=== PATIENT | male | born 1935 | race African-American/Black ===

== ENCOUNTER 2016-07-22 17:10 | Emergency (ER) | payer OTHER, MEDICARE, BC ==
[2016-07-22] MEDS ORDERED: PREDNISONE 20 MG TABLET PO ONE (18:08)
--- NOTE | 2016-07-22 18:13 | ER Document Report ---
ED Extremity Problem, Lower - General Chief Complaint: L knee pain Stated Complaint: KNEE PAIN Time seen by provider: 18:08 Mode of Arrival: Wheelchair Information source: Patient Notes: 80-year-old male presents to ED for complain of left knee pain. [facility] had [facility] he has a history of gout. He states he does not know of any injury to this knee and these been on prednisone 10 mg for 3 days. He cannot take nonsteroidal anti-inflammatories due to a kidney failure. TRAVEL OUTSIDE OF THE [place] IN LAST 30 DAYS: No - HPI Patient complains to provider of: Pain, Swelling, Other - Spasms to arms and legs he said for about a week or sleeping when he tries to sleep Location: Knee Occurred: Last week Onset/Duration: Intermittent Quality of pain: Sharp, Throbbing Severity: Severe Pain Level: 5 Context: Other - Gout to the knee Recent injury: No Associated symptoms: Painful ambulation Exacerbated by: Movement, Walking Relieved by: Nothing - Related Data Allergies/Adverse Reactions: shellfish derived Allergy (Verified 07/22/16 17:31) Past Medical History - General Information source: Patient - Social History Smoking Status: Former Smoker Cigarette use (# per day): No Chew tobacco use (# tins/day): No Smoking Education Provided: No Frequency of alcohol use: None Drug Abuse: None Occupation: disabled Lives with: Family - daughter Family History: Reviewed & Not Pertinent Patient has suicidal ideation: No Patient has homicidal ideation: No - Past Medical History Cardiac Medical History: Reports: Hx DVT, Hx Hypertension, Hx Pulmonary Embolism Pulmonary Medical History: Reports: None EENT Medical History: Reports: None Neurological Medical History: Reports: None Endocrine Medical History: Reports: None Renal/ Medical History: Reports: Hx Benign Prostatic Hyperplasia, Hx End Stage Renal Disease - myglobinuria, rhabdomyolysis, Other - Has been on hemodialysis in the past but is not on hemodialysis at this time. His kidneys are starting to fail again. Malignancy Medical History: Reports None GI Medical History: Reports: Hx Diverticulitis, Hx Gastritis, Hx Colonoscopy, Hx Endoscopy Musculoskeltal Medical History: Reports Hx Arthritis, Reports Hx Gout, Reports Hx Musculoskeletal Deformity, Reports Hx Musculoskeletal Trauma Skin Medical History: Reports None Psychiatric Medical History: Reports: None Traumatic Medical History: Reports: None Infectious Medical History: Reports: None Past Surgical History: Reports: Hx Bowel Surgery, Hx Cholecystectomy, Hx Colostomy - And revision, Hx Pacemaker, Hx Tonsillectomy, Other - Dialysis shunt and revision - Immunizations Immunizations up to date: Yes Review of Systems - Review of Systems Constitutional: No symptoms reported EENT: No symptoms reported Cardiovascular: No symptoms reported Respiratory: No symptoms reported Gastrointestinal: No symptoms reported Genitourinary: No symptoms reported Male Genitourinary: No symptoms reported Musculoskeletal: Gout - Left knee, Muscle pain - Muscle spasms to arms and legs at night Skin: No symptoms reported Hematologic/Lymphatic: No symptoms reported Neurological/Psychological: No symptoms reported -: Yes All other systems reviewed and negative Physical Exam - Vital signs Vitals: Temp Pulse Resp BP Pulse Ox 99.2 F 69 20 148/69 H 99 07/22/16 17:27 07/22/16 17:27 07/22/16 17:27 07/22/16 17:27 07/22/16 17:27 Interpretation: Normal - General General appearance: Appears well, Alert - HEENT Head: Normocephalic, Atraumatic Eyes: Normal Pupils: PERRL - Respiratory Respiratory status: No respiratory distress Chest status: Nontender Breath sounds: Normal Chest palpation: Normal - Cardiovascular Rhythm: Regular Heart sounds: Normal auscultation Murmur: No - Abdominal Inspection: Normal Distension: No distension Bowel sounds: Normal Tenderness: Nontender Organomegaly: No organomegaly - Back Back: Normal, Nontender - Extremities General upper extremity: Normal inspection, Nontender, Normal color, Normal ROM , Normal temperature General lower extremity: Normal color, Normal temperature. No: Faustino's sign Knee: Tender, Pain with ROM, Unable to bear weight, Other - Swelling to the left knee redness warm due to gout - Neurological Neuro grossly intact: Yes Cognition: Normal Orientation: AAOx4 [place] Coma Scale Eye Opening: Spontaneous Gary Coma Scale Verbal: Oriented [place] Coma Scale Motor: Obeys Commands Gary Coma Scale Total: 15 Speech: Normal Motor strength normal: LUE, RUE, LLE, RLE Sensory: Normal - Psychological Associated symptoms: Normal affect, Normal mood - Skin Skin Temperature: Warm Skin Moisture: Dry Skin Color: Normal Course - Re-evaluation Re-evalutation: 07/22/16 19:32 Labs discussed with patient and daughter. A written report of labs given to patient to follow-up with the [place] [facility]. Patient treated with 60 mg of prednisone and a prescription for 60 mg grams of prednisone for 5 days given to patient. Patient instructed to call [place] doctor tomorrow to schedule follow-up with orthopedic if needed continues. - Vital Signs Vital signs: Temp Pulse Resp BP Pulse Ox 99.0 F 70 18 149/60 H 98 07/22/16 19:45 07/22/16 19:45 07/22/16 19:45 07/22/16 19:45 07/22/16 19:45 - Laboratory Result Diagrams: 07/22/16 18:24 Laboratory results interpreted by me: 07/22/16 18:24 Chloride 95 L BUN 81 H Creatinine 2.95 H Est GFR ( Amer) 25 L Est GFR (Non-Af Amer) 21 L Discharge - Discharge Clinical Impression: Gout attack Qualifiers: Gout site: knee Gout etiology: unspecified cause Laterality: left Qualified Code(s): M10.9 - Gout, unspecified Condition: Stable Disposition: HOME, SELF-CARE Additional Instructions: Gout You have been diagnosed as having gout. Gout is a problem caused by an excess of uric acid, a natural chemical found in the body. The cause of this disease is unknown. Gout arthritis occurs when crystals of uric acid form in the joints. The big toe is the most common joint involved, but any joint can become affected. Persons with gout may also form uric acid kidney stones, resulting in flank pain and blood in the urine. Nodules of uric acid may form under the skin. The first step of treatment is to decrease the inflammation in the joint with antiinflammatory medication. Medication to lower the uric acid level in the blood may then be prescribed. This medication should be taken regularly, as any sudden change in dosage may provoke an attack of gout. Some foods, such as red meat, can provoke an attack in some gout sufferers. Call the doctor if new symptoms arise, or if you do not improve. Gout Diet Changing your diet can decrease the uric acid in your blood. High levels of uric acid cause gouty arthritis and uric acid kidney stones. If you have gout , you should avoid meats that are high in purine. Meat products to avoid include liver, kidneys, and brains. In general, poultry is better than red meats. Seafoods to avoid include anchovies, sardines, wilson, mackerel, and scallops. In addition to limiting purine-rich foods, people with gout should limit protein intake to 10-15% of total calories. Carbohydrate intake should be around 50% of total daily calories. Limit fat intake to 30% of total daily calories. Cholesterol intake should be less than 300 mg/day. Maintain or achieve a healthy body weight. Weight loss should be gradual. Rapid weight loss can actually increase uric acid levels temporarily. Alcohol, especially beer, should be avoided. Get plenty of fluids. This dilutes urinary uric acid, and helps prevent uric acid kidney stones. Drink eight to twelve cups of water daily. STEROID MEDICATION: You have been given a medicine of the cortisone/steroid class. This medication is used to control inflammation or allergy. It is usually only given for a short period of time, until the acute process subsides. There are usually no side effects from short-term use of cortisone-like medications. Some persons feel an increased sense of well-being and are not sleepy at bedtime. Long-term use of cortisone medications is best avoided, unless required for a severe condition. If your condition does not remit, or relapses after the course of corticosteroid medication, you should consult your physician. FOLLOW-UP CARE: If you have been referred to a physician for follow-up care, call the physician s office for an appointment as you were instructed or within the next two days. If you experience worsening or a significant change in your symptoms, notify the physician immediately or return to the Emergency Department at any time for re-evaluation. Prescriptions: Prednisone [Deltasone 20 mg Tablet] 3 tab PO DAILY 5 Days Forms: Elevated Blood Pressure
[2016-07-22 19:07] LABS: ANION GAP 18 (5-19); BLOOD UREA NITROGEN 81 mg/dL (7-20); CALCIUM 10.2 mg/dL (8.4-10.2); CARBON DIOXIDE 28 mmol/L (22-30); CHLORIDE 95 mmol/L (98-107); CREATININE RESULT 2.95 mg/dL (0.52-1.25); GLUCOSE 109 mg/dL (75-110); MAGNESIUM 2.2 mg/dL (1.6-2.3); POTASSIUM 4.2 mmol/L (3.6-5.0); SODIUM 140.9 mmol/L (137-145)
[2016-07-22 20:16] VITALS: BP 149/60
== END 2016-07-22 19:45 | disposition home or self-care (01) ==
LOC: ER 17:10
DX: M10.9 Gout, unspecified (principal); M25.562 Pain in left knee
CPT/HCPCS: 99283; 36415; 83735; 80048; J7512

== ENCOUNTER 2016-08-25 12:22 | Inpatient (IN) | payer OTHER, MEDICARE ==
[2016-08-25] MEDS ORDERED: MORPHINE SULFATE 10 MG/ML INJ IV ONE (13:18)
[2016-08-25] MEDS ORDERED: ONDANSETRON HCL INJ/PF 4 MG/2 ML SDV IV ONE (13:19)
[2016-08-25 15:54] LABS: ABSOLUTE BASOPHILS # (AUTO) 0.1 10^3/uL (0.0-0.2); ABSOLUTE LYMPHOCYTES (AUTO) 0.9 10^3/uL (0.5-4.7); ABSOLUTE MONOCYTES (AUTO) 0.7 10^3/uL (0.1-1.4); ABSOLUTE NEUT (AUTO) 9.8 10^3/uL (1.7-8.2); BASOPHILS % (AUTO) 0.4 % (0-2); EOSINOPHILS % (AUTO) 0.4 % (0-6); HEMATOCRIT 34.9 % (37.9-51.0); HEMOGLOBIN 11.1 g/dL (13.5-17.0); HGB HCT DIFFERENCE -1.6; LYMPHOCYTES % (AUTO) 8.2 % (13-45); MEAN CORPUSCULAR HEMOGLOBIN 26.7 pg (27.0-33.4); MEAN CORPUSCULAR HGB CONC 31.9 g/dL (32.0-36.0); MEAN CORPUSCULAR VOLUME 84 fl (80-97); MONOCYTES % (AUTO) 5.8 % (3-13); RED BLOOD COUNT 4.17 10^6/uL (4.35-5.55); RED CELL DISTRIBUTION WIDTH 20.9 % (11.5-14.0); SEGMENTED NEUTROPHILS % (AUTO) 85.2 % (42-78); WHITE BLOOD COUNT 11.6 10^3/uL (4.0-10.5)
[2016-08-25] MEDS ORDERED: VANCOMYCIN HCL INJ 1000 MG VIAL IV ONE (15:59)
[2016-08-25] MEDS ORDERED: LEVOFLOXACIN 750 MG/D5W RTU 150 ML IV ONE (16:00)
[2016-08-25 16:02] LABS: PROTHROMBIN TIME 14.4 SEC (11.4-15.4)
--- NOTE | 2016-08-25 16:06 | ER Document Report ---
ED Extremity Problem, Lower <GEORGES OSMAN - Last Filed: 08/25/16 16:20> - General Mode of Arrival: Medic Information source: Patient TRAVEL OUTSIDE OF THE [place] IN LAST 30 DAYS: No <AYAZ POLLOCK - Last Filed: 08/25/16 17:58> - General Chief Complaint: Leg Pain Stated Complaint: L LEG PAIN Time Seen by Provider: 08/25/16 13:01 Notes: This is a 80-year-old male with a history of CHF, hypertension who presents with lower extremity swelling which has been worse for the past few days. He states that his left leg is more painful. He takes Lasix once a day and has been told to increase this to twice a day as needed but he has not done so. He denies any fevers but has had some chills. No cough or congestion. (AYAZ POLLOCK) - Related Data Allergies/Adverse Reactions: shellfish derived Allergy (Verified 07/22/16 17:31) Past Medical History - General Information source: Patient, [facility] Records - Social History Smoking Status: Former Smoker Chew tobacco use (# tins/day): No Frequency of alcohol use: None Drug Abuse: None Family History: Reviewed & Not Pertinent - Past Medical History Cardiac Medical History: Reports: Hx Congestive Heart Failure, Hx DVT, Hx Hypertension, Hx Pulmonary Embolism Pulmonary Medical History: Reports: Hx COPD Renal/ Medical History: Reports: Hx Benign Prostatic Hyperplasia, Hx End Stage Renal Disease - myglobinuria, rhabdomyolysis. Denies: Hx Peritoneal Dialysis GI Medical History: Reports: Hx Diverticulitis, Hx Gastritis, Hx Colonoscopy, Hx Endoscopy Musculoskeltal Medical History: Reports Hx Arthritis, Reports Hx Gout, Reports Hx Musculoskeletal Deformity, Reports Hx Musculoskeletal Trauma Past Surgical History: Reports: Hx Bowel Surgery, Hx Cholecystectomy, Hx Colostomy - And revision, Hx Pacemaker, Hx Tonsillectomy, Other - Dialysis shunt and revision - Immunizations Immunizations up to date: Yes Hx Diphtheria, Pertussis, Tetanus Vaccination: No <AYAZ POLLOCK - Last Filed: 08/25/16 17:58> Review of Systems <GEORGES OSMAN - Last Filed: 08/25/16 16:20> <AYAZ POLLOCK - Last Filed: 08/25/16 17:58> - Review of Systems Notes: REVIEW OF SYSTEMS: CONSTITUTIONAL : Denies fever. Denies recent illness. EENT: Denies eye, ear, throat, or mouth pain or symptoms. Denies nasal or sinus congestion. CARDIOVASCULAR: Denies chest pain. RESPIRATORY: Denies cough, cold, or chest congestion. Denies shortness of breath, difficulty breathing, or wheezing. GASTROINTESTINAL: Denies abdominal pain. Denies nausea, vomiting, or diarrhea. GENITOURINARY: Denies difficulty urinating, painful urination, burning, frequency, or blood in urine. MUSCULOSKELETAL: As per history of present illness SKIN: Redness to left lower extremity HEMATOLOGIC : Denies easy bruising or bleeding. LYMPHATIC: Denies swollen, enlarged glands. NEUROLOGICAL: Denies altered mental status or loss of consciousness. Denies headache. PSYCHIATRIC: Denies anxiety or stress or depression. ALL OTHER SYSTEMS REVIEWED AND NEGATIVE. (AYAZ POLLOCK) Physical Exam <GEORGES OSMAN - Last Filed: 08/25/16 16:20> <AYAZ POLLOCK - Last Filed: 08/25/16 17:58> - Vital signs Vitals: Resp 16 08/25/16 12:30 - Notes Notes: PHYSICAL EXAMINATION: GENERAL: Well-appearing, well-nourished and in no acute distress. Pleasant and conversant HEAD: Atraumatic, normocephalic. EYES: Pupils equal round and reactive to light, extraocular movements intact, sclera anicteric, conjunctiva are normal. ENT: nares patent, oropharynx clear without exudates. Moist mucous membranes. NECK: Normal range of motion, supple without lymphadenopathy LUNGS: decreased bibasilar breath sounds, no wheezes, no rhonchi, no rales HEART: Regular rate and rhythm without murmurs ABDOMEN: Soft, obese, nontender, normoactive bowel sounds. No guarding, no rebound. No masses appreciated. EXTREMITIES: 2+ pitting edema BLE, symmetric. LLE with erythema, warmth, and several small anterior areas of skin breakdown with weeping to anterior esparza. Compartments soft, not tense. Distal sensation intact. ROM intact. NEUROLOGICAL: Cranial nerves grossly intact. No gross focal motor or sensory deficits appreciated PSYCH: Normal mood, normal affect. (AYAZ POLLOCK) Course - Laboratory Result Diagrams: 08/25/16 15:33 08/25/16 15:33 <GEORGES OSMAN - Last Filed: 08/25/16 16:20> - Laboratory Result Diagrams: 08/25/16 15:33 08/25/16 15:33 <AYAZ POLLOCK - Last Filed: 08/25/16 17:58> - Re-evaluation Re-evalutation: 08/25/16 16:08 Concern for LLE cellulitis, and possible pneumonia on CXR, IV abx initiated 08/25/16 17:57 Labs reviewed. Pt re-examined. LLE very warm to touch. Compartments remain soft. Discussed with hospitalist Dr Euceda for admission. Discussed plan with patient, questions answered. (AYAZ POLLOCK) - Vital Signs Vital signs: Temp Pulse Resp BP Pulse Ox 98.0 F 21 H 153/73 H 98 08/25/16 17:40 08/25/16 17:49 08/25/16 17:49 08/25/16 17:49 - Laboratory Laboratory results interpreted by me: 08/25/16 08/25/16 08/25/16 15:33 15:33 17:10 WBC 11.6 H RBC 4.17 L Hgb 11.1 L Hct 34.9 L MCH 26.7 L MCHC 31.9 L RDW 20.9 H Plt Count 144 L Seg Neutrophils % 85.2 H Lymphocytes % 8.2 L Absolute Neutrophils 9.8 H BUN 53 H Creatinine 2.68 H Est GFR ( Amer) 28 L Est GFR (Non-Af Amer) 23 L Glucose 142 H Total Bilirubin 2.2 H Direct Bilirubin 0.5 H Total Protein 6.1 L Albumin 3.4 L Urine Protein 30 H Procedures - Additional Procedures IV insertion Time performed: 15:00 Additional Procedures: IV insertion <GEORGES OSMAN - Last Filed: 08/25/16 16:20> <AYAZ POLLOCK - Last Filed: 08/25/16 17:58> - Additional Procedures IV insertion Notes: 20 guage IV inserted into right brachial vein under ultrasound guidance due to difficulty obtaining access by RN. (GEORGES OSMAN) Discharge <GEORGES OSMAN - Last Filed: 08/25/16 16:20> - Discharge Admitting Provider: Hospitalist - Dr. Euceda Unit Admitted: Telemetry <AYAZ POLLOCK - Last Filed: 08/25/16 17:58> - Discharge Clinical Impression: Left leg cellulitis Chronic kidney disease (CKD) Qualifiers: Chronic kidney disease stage: unspecified stage Qualified Code(s): N18.9 - Chronic kidney disease, unspecified
[2016-08-25 16:11] LABS: ALANINE AMINOTRANSFERASE 47 U/L (21-72); ALBUMIN 3.4 g/dL (3.5-5.0); ALKALINE PHOSPHATASE 53 U/L (38-126); ANION GAP 10 (5-19); ASPARTATE AMINO TRANSFERASE 22 U/L (17-59); BILIRUBIN,DIRECT 0.5 mg/dL (0.0-0.4); BILIRUBIN,TOTAL 2.2 mg/dL (0.2-1.3); BLOOD UREA NITROGEN 53 mg/dL (7-20); CALCIUM 8.6 mg/dL (8.4-10.2); CARBON DIOXIDE 30 mmol/L (22-30); CHLORIDE 98 mmol/L (98-107); CREATININE RESULT 2.68 mg/dL (0.52-1.25); GLUCOSE 142 mg/dL (75-110); POTASSIUM 4.2 mmol/L (3.6-5.0); SODIUM 138.4 mmol/L (137-145); TOTAL PROTEIN 6.1 g/dL (6.3-8.2)
[2016-08-25 17:47] LABS: APPEARANCE,URINE CLEAR; BILIRUBIN,URINE NEGATIVE (NEGATIVE); GLUCOSE, URINE NEGATIVE (NEGATIVE); KETONES,URINE NEGATIVE (NEGATIVE); LEUKOCYTE ESTERASE,URINE NEGATIVE (NEGATIVE); NITRITE,URINE NEGATIVE (NEGATIVE); PROTEIN,URINE 30 mg/dL (NEGATIVE); URINE SPECIFIC GRAVITY 1.011; UROBILINOGEN,URINE NEGATIVE mg/dL (<2.0)
[2016-08-25] MEDS ORDERED: HYDRALAZINE HCL INJ/PF 20 MG/1 ML SDV IV PRN (18:12)
[2016-08-25] MEDS ORDERED: ONDANSETRON HCL INJ/PF 4 MG/2 ML SDV IV PRN (18:14)
[2016-08-25] MEDS ORDERED: ACETAMINOPHEN 325 MG TABLET PO PRN (18:14)
--- NOTE | 2016-08-25 18:28 | PDOC H&P ---
History of Present Illness Admission Date/PCP: Dr. Samuel Patient complains of: Left leg pain History of Present Illness: PING MURPHY is a 80 year old male with past medical history chronic kidney disease, hypertension, BPH, pacemaker presents to the hospital with 3 days worsening left lower extremity pain and swelling. Patient has somewhat chronic edema in both lower extremities. Past Medical History Cardiac Medical History: Reports: Congestive Heart Failure, DVT, Hypertension, Pulmonary Embolism Pulmonary Medical History: Reports: Chronic Obstructive Pulmonary Disease (COPD) Renal/ Medical History: Reports: Chronic Kidney Disease GI Medical History: Reports: Diverticulitis Musculoskeltal Medical History: Reports: Arthritis, Gout Past Surgical History Past Surgical History: Reports: Cholecystectomy, Colostomy - And revision, Pacemaker, Tonsillectomy, Other - Dialysis shunt and revision Social History Information Source: Patient Smoking Status: Former Smoker Frequency of Alcohol Use: None Hx Recreational Drug Use: No Hx Prescription Drug Abuse: No - Advance Directive Resuscitation Status: Full Code Family History Family History: Reviewed & Not Pertinent Parental Family History Reviewed: Yes Children Family History Reviewed: Yes Sibling(s) Family History Reviewed.: Yes Medication/Allergy Home Medications: Prednisone [Deltasone 20 mg Tablet] 3 tab PO DAILY 5 Days 07/22/16 Allergies/Adverse Reactions: shellfish derived Allergy (Verified 07/22/16 17:31) Review of Systems Constitutional: ABSENT: chills, fever(s), headache(s), weight gain, weight loss Eyes: ABSENT: visual disturbances Ears: ABSENT: hearing changes Cardiovascular: PRESENT: edema. ABSENT: chest pain, dyspnea on exertion, orthropnea, palpitations Respiratory: ABSENT: cough, hemoptysis Gastrointestinal: ABSENT: abdominal pain, constipation, diarrhea, hematemesis, hematochezia, nausea, vomiting Genitourinary: ABSENT: dysuria, hematuria Musculoskeletal: ABSENT: joint swelling Integumentary: PRESENT: erythema - Left lower extremity. ABSENT: rash, wounds Neurological: ABSENT: abnormal gait, abnormal speech, confusion, dizziness, focal weakness, syncope Psychiatric: ABSENT: anxiety, depression, homidical ideation, suicidal ideation Endocrine: ABSENT: cold intolerance, heat intolerance, polydipsia, polyuria Hematologic/Lymphatic: ABSENT: easy bleeding, easy bruising Physical Exam Vital Signs: Temp Pulse Resp BP Pulse Ox 98.0 F 21 H 153/73 H 98 08/25/16 17:40 08/25/16 17:49 08/25/16 17:49 08/25/16 17:49 PHYSICAL EXAM: GENERAL: Appears well, no acute distress HEENT: Normocephalic, no scleral icterus, conjunctiva clear, EOEM intact, PERRLA , moist mucous membranes NECK: trachea midline, no thyromegally RESPIRATORY: Clear to auscultation, no wheezes/rhonchi CARDIAC: Regular rate and rhythm, no murmur/alessandro/rub ABDOMEN: Soft, no distension, no tenderness, no guarding, normal bowel sounds, negative Romero sign RECTAL: deferred : deferred EXTREMITIES: 3+ Pitting edema and bilateral lower extremities MUSCULOSKELETAL: No joint swelling or deformity VASCULAR: normal peripheral pulses NEUROLOGIC: Alert, oriented to person/place/time, normal speech, cranial nerves grossly intact, 5/5 strength in all extremities, tactile sensation intact in all extremities. No pain with active/passive range of motion in left lower extremity SKIN: Erythema/induration left lower extremity distal to the knee PSYCHIATRIC: Normal mood, normal affect Results Laboratory Results: 08/25/16 15:33 08/25/16 15:33 08/25/16 08/25/16 08/25/16 15:33 15:33 15:33 WBC 11.6 H RBC 4.17 L Hgb 11.1 L Hct 34.9 L MCV 84 MCH 26.7 L MCHC 31.9 L RDW 20.9 H Plt Count 144 L Seg Neutrophils % 85.2 H Lymphocytes % 8.2 L Monocytes % 5.8 Eosinophils % 0.4 Basophils % 0.4 Absolute Neutrophils 9.8 H Absolute Lymphocytes 0.9 Absolute Monocytes 0.7 Absolute Eosinophils 0.0 Absolute Basophils 0.1 Sodium 138.4 Potassium 4.2 Chloride 98 Carbon Dioxide 30 Anion Gap 10 BUN 53 H Creatinine 2.68 H Est GFR ( Amer) 28 L Est GFR (Non-Af Amer) 23 L Glucose 142 H Lactic Acid 2.0 Calcium 8.6 Total Bilirubin 2.2 H AST 22 ALT 47 Alkaline Phosphatase 53 Total Protein 6.1 L Albumin 3.4 L Urine Color Urine Appearance Urine pH Ur Specific [place] Urine Protein Urine Glucose (UA) Urine Ketones Urine Blood Urine Nitrite Ur Leukocyte Esterase Urine WBC (Auto) Urine RBC (Auto) 08/25/16 17:10 WBC RBC Hgb Hct MCV MCH MCHC RDW Plt Count Seg Neutrophils % Lymphocytes % Monocytes % Eosinophils % Basophils % Absolute Neutrophils Absolute Lymphocytes Absolute Monocytes Absolute Eosinophils Absolute Basophils Sodium Potassium Chloride Carbon Dioxide Anion Gap BUN Creatinine Est GFR ( Amer) Est GFR (Non-Af Amer) Glucose Lactic Acid Calcium Total Bilirubin AST ALT Alkaline Phosphatase Total Protein Albumin Urine Color YELLOW Urine Appearance CLEAR Urine pH 7.0 Ur Specific [place] 1.011 Urine Protein 30 H Urine Glucose (UA) NEGATIVE Urine Ketones NEGATIVE Urine Blood NEGATIVE Urine Nitrite NEGATIVE Ur Leukocyte Esterase NEGATIVE Urine WBC (Auto) 2 Urine RBC (Auto) 1 Impressions: Chest X-Ray 08/25/16 13:18 IMPRESSION: Left retrocardiac airspace disease either atelectasis or pneumonia. Assessment & Plan - Diagnosis (1) Left leg cellulitis Is this a current diagnosis for this admission?: YesPlan: Patient will be admitted to the hospital. Start IV clindamycin. Check blood culture. (2) Pneumonia Is this a current diagnosis for this admission?: YesPlan: Retrocardiac airspace disease noted on chest x-ray. Likely bacterial. Start oral doxycycline. (3) Edema Is this a current diagnosis for this admission?: YesPlan: Start Lasix 40 mg IV every 12 hours. Likely related to chronic kidney disease however I would like to check echocardiogram to rule out CHF. (4) Chronic kidney disease (CKD) Qualifiers: Chronic kidney disease stage: unspecified stage Qualified Code(s): N18.9 - Chronic kidney disease, unspecified Is this a current diagnosis for this admission?: YesPlan: Monitor kidney function closely with aggressive diuresis. (5) Hypertension Is this a current diagnosis for this admission?: YesPlan: When necessary IV hydralazine. Start Toprol-XL 25 mg twice daily. (6) History of pacemaker Is this a current diagnosis for this admission?: Yes - Time Time Spent: Greater than 70 Minutes Anticipated discharge: Home - Inpatient Certification Medical Necessity: Need for IV Antibiotics
[2016-08-25] MEDS ORDERED: FUROSEMIDE INJ/PF 20 MG/2 ML SDV IV ONE (18:30)
[2016-08-25] MEDS ORDERED: CLINDAMYCIN 600 MG/D5W RTU 600 MG/50 ML RTUPB IV ONE (18:30)
--- NOTE | 2016-08-25 22:43 | EKG REPORT ---
SEVERITY:- ABNORMAL ECG - AFIB/FLUTTER AND VENTRICULAR-PACED RHYTHM : Confirmed by: Zara Kaplan 25-Aug-2016 22:43:08
[2016-08-25] MEDS: METOPROLOL SUCCINATE 25 MG TAB.SR.24H PO SCH (22:58)
[2016-08-25] MEDS: DOXYCYCLINE HYCLATE 100 MG TABLET PO SCH (22:58)
[2016-08-25] MEDS: HEPARIN SOD (PORCINE) 5,000 UNIT/ML 1 ML SYRINGE SUBCUT SCH (23:36)
[2016-08-26] MEDS: CLINDAMYCIN 600 MG/D5W RTU 600 MG/50 ML RTUPB IV SCH ×3 (06:17→22:20)
[2016-08-26] MEDS: HEPARIN SOD (PORCINE) 5,000 UNIT/ML 1 ML SYRINGE SUBCUT SCH ×3 (06:17→22:20)
[2016-08-26] MEDS: OXYCODONE HCL IR 5 MG TABLET PO PRN ×2 (06:21→12:40)
[2016-08-26 06:22] LABS: ABSOLUTE BASOPHILS # (AUTO) 0.1 10^3/uL (0.0-0.2); ABSOLUTE EOSINOPHILS # (AUTO) 0.1 10^3/uL (0.0-0.6); ABSOLUTE NEUT (AUTO) 10.2 10^3/uL (1.7-8.2); BASOPHILS % (AUTO) 0.6 % (0-2); EOSINOPHILS % (AUTO) 0.5 % (0-6); HEMATOCRIT 32.3 % (37.9-51.0); HEMOGLOBIN 10.1 g/dL (13.5-17.0); LYMPHOCYTES % (AUTO) 7.8 % (13-45); MEAN CORPUSCULAR HEMOGLOBIN 26.6 pg (27.0-33.4); MEAN CORPUSCULAR HGB CONC 31.3 g/dL (32.0-36.0); MEAN CORPUSCULAR VOLUME 85 fl (80-97); RED CELL DISTRIBUTION WIDTH 21.1 % (11.5-14.0); SEGMENTED NEUTROPHILS % (AUTO) 83.1 % (42-78); WHITE BLOOD COUNT 12.3 10^3/uL (4.0-10.5)
[2016-08-26 06:48] LABS: ANION GAP 10 (5-19); BLOOD UREA NITROGEN 53 mg/dL (7-20); CARBON DIOXIDE 28 mmol/L (22-30); CHLORIDE 99 mmol/L (98-107); CREATININE RESULT 2.78 mg/dL (0.52-1.25); GLUCOSE 115 mg/dL (75-110); MAGNESIUM 1.8 mg/dL (1.6-2.3); POTASSIUM 4.7 mmol/L (3.6-5.0); SODIUM 136.5 mmol/L (137-145)
[2016-08-26 07:05] LABS: FREE T3 3.17 pg/mL (2.77-5.27)
[2016-08-26 07:19] LABS: THYROID STIMULATING HORMONE 1.34 uIU/mL (0.47-4.68)
[2016-08-26] MEDS ORDERED: FUROSEMIDE INJ/PF 20 MG/2 ML SDV IV SCH (10:00)
[2016-08-26] MEDS: METOPROLOL SUCCINATE 25 MG TAB.SR.24H PO SCH ×2 (12:16→22:20)
[2016-08-26] MEDS: DOXYCYCLINE HYCLATE 100 MG TABLET PO SCH ×2 (12:17→22:20)
--- NOTE | 2016-08-26 14:33 | PDOC PROGRESS REPORT ---
Subjective Progress Note for:: 08/26/16 Subjective:: Patient has no particular complaints. He feels as though his left leg may be slightly better yesterday. He has no further chills. Physical Exam Vital Signs: Temp Pulse Resp BP Pulse Ox 99.1 F 70 16 116/64 98 08/26/16 11:29 08/26/16 11:29 08/26/16 11:29 08/26/16 11:29 08/26/16 11:29 Intake & Output 08/25/16 08/26/16 08/27/16 06:59 06:59 06:59 Intake Total 305 Output Total 400 Balance -95 Weight 86.1 kg GENERAL: No acute distress HEENT: Conjunctiva clear, nonicteric, moist mucous membranes, no JVD, midline trachea RESPIRATORY: Clear to auscultation bilaterally, no wheezes, no rhonchi CARDIAC: Regular rate and rhythm, no murmurs/gallops/rubs ABDOMEN: Soft, nondistended, nontender, positive bowel sounds, no rebound, no guarding EXTREMETIES: No edema, cyanosis, clubbing NEUROLOGIC: Alert, oriented to person/place/time, CN's grossly intact, no focal deficits SKIN: Erythema/induration left lower extremity improved PSYCH: Normal mood, normal affect Results Laboratory Results: 08/26/16 06:01 08/26/16 06:01 08/26/16 08/26/16 08/26/16 06:01 06:01 06:01 WBC 12.3 H RBC 3.80 L Hgb 10.1 L Hct 32.3 L MCV 85 MCH 26.6 L MCHC 31.3 L RDW 21.1 H Plt Count 120 L Seg Neutrophils % 83.1 H Lymphocytes % 7.8 L Monocytes % 8.0 Eosinophils % 0.5 Basophils % 0.6 Absolute Neutrophils 10.2 H Absolute Lymphocytes 1.0 Absolute Monocytes 1.0 Absolute Eosinophils 0.1 Absolute Basophils 0.1 Sodium 136.5 L Potassium 4.7 Chloride 99 Carbon Dioxide 28 Anion Gap 10 BUN 53 H Creatinine 2.78 H Est GFR ( Amer) 27 L Est GFR (Non-Af Amer) 22 L Glucose 115 H Calcium 8.0 L Magnesium 1.8 TSH 1.34 Free T4 1.86 Free T3 pg/mL 3.17 Impressions: Chest X-Ray 08/25/16 13:18 IMPRESSION: Left retrocardiac airspace disease either atelectasis or pneumonia. Tibia/Fibula X-Ray 08/25/16 17:34 IMPRESSION: NO SIGNIFICANT RADIOGRAPHIC ABNORMALITY. Assessment & Plan - Diagnosis (1) Left leg cellulitis Is this a current diagnosis for this admission?: YesPlan: Patient will be admitted to the hospital. Continue IV clindamycin. Check blood culture. Unable to obtain MRI of the lower extremity secondary to pacemaker. Unable to obtain CT scan with contrast secondary to chronic kidney disease and shellfish allergy. (2) Pneumonia Is this a current diagnosis for this admission?: YesPlan: Retrocardiac airspace disease noted on chest x-ray. Likely bacterial. Continue oral doxycycline until 08/31/2016. (3) Edema Is this a current diagnosis for this admission?: YesPlan: Continue Lasix 40 mg IV every 12 hours. Likely related to chronic kidney disease however I would like to check echocardiogram to rule out CHF. (4) Chronic kidney disease (CKD) Qualifiers: Chronic kidney disease stage: unspecified stage Qualified Code(s): N18.9 - Chronic kidney disease, unspecified Is this a current diagnosis for this admission?: YesPlan: Monitor kidney function closely with aggressive diuresis. Patient will need to see nephrology as an outpatient. I will consult nephrology inpatient kidney function worsens. Check renal ultrasound. (5) Hypertension Is this a current diagnosis for this admission?: Yes (6) History of pacemaker Is this a current diagnosis for this admission?: Yes (7) Obstructive sleep apnea Is this a current diagnosis for this admission?: YesPlan: CPAP (8) Urinary tract infection Is this a current diagnosis for this admission?: YesPlan: Doxycycline pending further sensitivity. - Time Time Spent with patient: 35 or more minutes
--- NOTE | 2016-08-26 15:34 | XCELERA REPORT ---
[address] [address] Transthoracic Echocardiogram Report Name: PING MURPHY Age: 80 yrs Gender: Male : 1935 Patient Status: Inpatient Patient Location: 5\S\528\S\A Study Date: 08/26/2016 09:16 AM Weight: 270 lb Procedure: A two-dimensional transthoracic echocardiogram with color flow and Doppler was performed. The study was technically limited with all images being suboptimal in quality. Reason For Study: EDEMA History: EDEMA. Ordering Physician: LINA MEDINA Performed By: Jade Everett Interpretation Summary The left ventricle is normal in size. There is normal left ventricular wall thickness. LV EF is > than 60% Apical wall motion abnormality may reflect pacemaker activation The right ventricle is grossly normal size. There is a pacemaker lead in the right ventricle. The left atrium is mildly dilated. There is no evidence of mitral valve prolapse. There is no mitral valve stenosis. There is a mild to moderate amount of mitral regurgitation The aortic valve is mildly calcified There is no aortic valve stenosis There is no LVOT obstruction. No aortic regurgitation is present. The inferior vena cava appeared dilated and decreased < 50% with respiration (RAP 15-20 mmHg) There is no tricuspid stenosis. There is a trace to mild amount of tricuspid regurgitation There is moderate pulmonary hypertension by echo RVSP is 50 to 55 mm of Hg , with RA mean of 15 to20. There is no pericardial effusion. MMode/2D Measurements \T\ Calculations RVDd: 3.2 cm LVIDd: 4.2 cm FS: 36.1 % Ao root diam: 3.1 cm IVSd: 1.1 cm LVIDs: 2.7 cm EDV(Teich): 79.4 ml Ao root area: 7.5 cm2 LVPWd: 1.1 cm ESV(Teich): 26.9 ml LA dimension: 4.2 cm EF(Teich): 66.1 % Doppler Measurements \T\ Calculations MV E max georgiana: MV P1/2t max georgiana: Ao V2 max: LV V1 max P.8 cm/sec 131.3 cm/sec 140.5 cm/sec 3.8 mmHg MV P1/2t: 42.9 msec Ao max PG: LV V1 max: MVA(P1/2t): 5.1 cm2 7.9 mmHg 97.7 cm/sec MV dec slope: 895.8 cm/sec2 MV dec time: 0.15 sec PA V2 max: PI end-d georgiana: TR max georgiana: 70.6 cm/sec 88.2 cm/sec 294.5 cm/sec PA max P.0 mmHg TR max P.7 mmHg Left Ventricle The left ventricle is normal in size. There is normal left ventricular wall thickness. LV EF is > than 60%. Left ventricular systolic function is normal. The left ventricular wall motion is normal. Apical wall motion abnormality may reflect pacemaker activation. Right Ventricle The right ventricle is grossly normal size. There is a pacemaker lead in the right ventricle. Atria Right atrium not well visualized secondary to technical limitations. The left atrium is mildly dilated. Mitral Valve There is mild mitral annular calcification. There is no evidence of mitral valve prolapse. There is no vegetation seen on the mitral valve. There is no mitral valve stenosis. There is a mild to moderate amount of mitral regurgitation. Aortic Valve The aortic valve is mildly calcified. There is no aortic valvular vegetation. There is no aortic valve stenosis. There is no LVOT obstruction. No aortic regurgitation is present. Tricuspid Valve There is no tricuspid stenosis. There is a trace to mild amount of tricuspid regurgitation. There is moderate pulmonary hypertension by echo. RVSP is 50 to 55 mm of Hg , with RA mean of 15 to20. Pulmonic Valve There is no pulmonic valvular stenosis. There is a trace amount of pulmonic regurgitation. Great Vessels The aortic root is not well visualized but is probably normal size. The inferior vena cava appeared dilated and decreased < 50% with respiration (RAP 15-20 mmHg). Effusions There is no pericardial effusion. : LINA MEDINA > Sherine Raya
[2016-08-26] MEDS: FUROSEMIDE INJ/PF 40 MG/4 ML SDV IV SCH (17:50)
[2016-08-26] MEDS ORDERED: MAG HYDROX/AL HYDROX/SIMETH SUSP 30 ML UDCUP PO PRN (18:02)
[2016-08-26] MEDS ORDERED: LANSOPRAZOLE 30 MG TAB.RAP.DR PO ONE (19:15)
[2016-08-27] MEDS: CLINDAMYCIN 600 MG/D5W RTU 600 MG/50 ML RTUPB IV SCH ×3 (05:24→21:54)
[2016-08-27] MEDS: FUROSEMIDE INJ/PF 40 MG/4 ML SDV IV SCH ×2 (05:24→18:08)
[2016-08-27] MEDS: HEPARIN SOD (PORCINE) 5,000 UNIT/ML 1 ML SYRINGE SUBCUT SCH ×3 (05:25→21:54)
[2016-08-27 06:52] LABS: ABSOLUTE EOSINOPHILS # (AUTO) 0.1 10^3/uL (0.0-0.6); ABSOLUTE LYMPHOCYTES (AUTO) 1.1 10^3/uL (0.5-4.7); ABSOLUTE MONOCYTES (AUTO) 0.9 10^3/uL (0.1-1.4); ABSOLUTE NEUT (AUTO) 8.4 10^3/uL (1.7-8.2); BASOPHILS % (AUTO) 0.4 % (0-2); EOSINOPHILS % (AUTO) 0.7 % (0-6); HEMATOCRIT 31.7 % (37.9-51.0); HEMOGLOBIN 10.1 g/dL (13.5-17.0); HGB HCT DIFFERENCE -1.4; LYMPHOCYTES % (AUTO) 10.1 % (13-45); MEAN CORPUSCULAR HEMOGLOBIN 26.8 pg (27.0-33.4); MEAN CORPUSCULAR HGB CONC 31.9 g/dL (32.0-36.0); MEAN CORPUSCULAR VOLUME 84 fl (80-97); MONOCYTES % (AUTO) 8.4 % (3-13); RED BLOOD COUNT 3.78 10^6/uL (4.35-5.55); RED CELL DISTRIBUTION WIDTH 20.4 % (11.5-14.0); SEGMENTED NEUTROPHILS % (AUTO) 80.4 % (42-78); WHITE BLOOD COUNT 10.5 10^3/uL (4.0-10.5)
[2016-08-27 07:13] LABS: ANION GAP 9 (5-19); BLOOD UREA NITROGEN 58 mg/dL (7-20); CALCIUM 7.6 mg/dL (8.4-10.2); CARBON DIOXIDE 26 mmol/L (22-30); CHLORIDE 98 mmol/L (98-107); CREATININE RESULT 3.23 mg/dL (0.52-1.25); GLUCOSE 104 mg/dL (75-110); POTASSIUM 4.6 mmol/L (3.6-5.0); SODIUM 133.2 mmol/L (137-145)
[2016-08-27] MEDS: LANSOPRAZOLE 30 MG TAB.RAP.DR PO SCH (09:15)
[2016-08-27] MEDS: METOPROLOL SUCCINATE 25 MG TAB.SR.24H PO SCH (09:15)
[2016-08-27] MEDS: DOXYCYCLINE HYCLATE 100 MG TABLET PO SCH ×2 (09:16→21:54)
[2016-08-27] MEDS: OXYCODONE HCL IR 5 MG TABLET PO PRN (11:19)
--- NOTE | 2016-08-27 15:29 | PDOC PROGRESS REPORT ---
Subjective Progress Note for:: 08/27/16 Subjective:: Left leg pain and swelling is improving. Kidney function is worsening. Patient states that he is normally followed by the [facility] in [facility] for this. Patient denies fever, chills, headache, new focal weakness, chest pain, shortness of breath, abdominal pain, nausea, vomiting, diarrhea, constipation. Physical Exam Vital Signs: Temp Pulse Resp BP Pulse Ox 98.3 F 69 15 117/56 L 97 08/27/16 07:15 08/27/16 07:15 08/27/16 07:15 08/27/16 07:15 08/27/16 07:15 Intake & Output 08/26/16 08/27/16 08/28/16 06:59 06:59 06:59 Intake Total 305 1394 Output Total 400 325 Balance -95 1069 Weight 86.1 kg GENERAL: No acute distress HEENT: Conjunctiva clear, nonicteric, moist mucous membranes, no JVD, midline trachea RESPIRATORY: Clear to auscultation bilaterally, no wheezes, no rhonchi CARDIAC: Regular rate and rhythm, no murmurs/gallops/rubs ABDOMEN: Soft, nondistended, nontender, positive bowel sounds, no rebound, no guarding EXTREMETIES: Trace to 1+ bilateral lower extremity edema, much improved from admission NEUROLOGIC: Alert, oriented to person/place/time, CN's grossly intact, no focal deficits SKIN: Erythema/induration left lower extremity improved PSYCH: Normal mood, normal affect Results Laboratory Results: 08/27/16 06:08 08/27/16 06:08 08/27/16 08/27/16 06:08 06:08 WBC 10.5 RBC 3.78 L Hgb 10.1 L Hct 31.7 L MCV 84 MCH 26.8 L MCHC 31.9 L RDW 20.4 H Plt Count 140 L Seg Neutrophils % 80.4 H Lymphocytes % 10.1 L Monocytes % 8.4 Eosinophils % 0.7 Basophils % 0.4 Absolute Neutrophils 8.4 H Absolute Lymphocytes 1.1 Absolute Monocytes 0.9 Absolute Eosinophils 0.1 Absolute Basophils 0.0 Sodium 133.2 L Potassium 4.6 Chloride 98 Carbon Dioxide 26 Anion Gap 9 BUN 58 H Creatinine 3.23 H Est GFR ( Amer) 23 L Est GFR (Non-Af Amer) 19 L Glucose 104 Calcium 7.6 L Impressions: Chest X-Ray 08/25/16 13:18 IMPRESSION: Left retrocardiac airspace disease either atelectasis or pneumonia. Tibia/Fibula X-Ray 08/25/16 17:34 IMPRESSION: NO SIGNIFICANT RADIOGRAPHIC ABNORMALITY. Renal Ultrasound 08/27/16 00:00 IMPRESSION: NORMAL RENAL AND BLADDER ULTRASOUND. Assessment & Plan - Diagnosis (1) Left leg cellulitis Is this a current diagnosis for this admission?: YesPlan: Continue IV clindamycin. Blood cultures negative. Unable to obtain MRI of the lower extremity secondary to pacemaker. Unable to obtain CT scan with contrast secondary to chronic kidney disease and shellfish allergy. (2) Pneumonia Is this a current diagnosis for this admission?: YesPlan: Retrocardiac airspace disease noted on chest x-ray. Likely bacterial. Continue oral doxycycline until 08/31/2016. (3) Edema Is this a current diagnosis for this admission?: YesPlan: Continue Lasix 40 mg IV every 12 hours. Likely related to chronic kidney disease. Echocardiogram normal. Thyroid function studies normal. (4) Chronic kidney disease (CKD) Qualifiers: Chronic kidney disease stage: unspecified stage Qualified Code(s): N18.9 - Chronic kidney disease, unspecified Is this a current diagnosis for this admission?: YesPlan: Monitor kidney function closely with aggressive diuresis. Renal ultrasound unremarkable. I will consult nephrology given worsening of renal function. (5) Hypertension Is this a current diagnosis for this admission?: YesPlan: When necessary IV hydralazine. Discontinue Toprol-XL secondary to low blood pressures and worsening renal function. (6) History of pacemaker Is this a current diagnosis for this admission?: Yes (7) Obstructive sleep apnea Is this a current diagnosis for this admission?: YesPlan: CPAP (8) Urinary tract infection Is this a current diagnosis for this admission?: YesPlan: Urine culture growing Escherichia coli and Pseudomonas. Urinalysis however only had 2 white blood cells per high-powered field. Patient is not symptomatic from this standpoint. I think I will defer treatment for this culture as I don't think it represents a true infection, rather colonization. - Time Time Spent with patient: 25-34 minutes
--- NOTE | 2016-08-27 19:31 | PDOC CONSULTATION ---
Consultation Consult Date: 08/27/16 Attending physician:: LINA MEDINA Consult reason:: I was asked by Dr. Medina to see this patient because of chronic kidney disease. History of Present Illness Admission Date/PCP: 08/25/16 18:14 History of Present Illness: PING MURPHY is a 80 year old male with past medical history chronic kidney disease, hypertension, BPH, pacemaker presents to the hospital with 3 days worsening left lower extremity pain and swelling. Patient has somewhat chronic edema in both lower extremities. Patient is currently being treated with IV antibiotics and IV Lasix. According to the nurses the lower extremity edema has been improved. In terms of the kidney function the patient came in with a BUN of 53 and creatinine of 2.68 with estimated GFR of 28 on August 25. Today the patient has a BUN of 58 and creatinine of 3.23 with estimated GFR of 23. Records indicate that on July 22 the patient has a BUN of 81 creatinine of 2.95 with estimated GFR of 25. Patient has mildly low sodium of 133.2. When I came to the room today to talk to the patient, the patient is sleeping with a BiPAP on. I was able to wake him up however the patient could not keep himself awake and keep dozing off after answering a couple of questions. He gave me very minimal additional information regarding his kidney disease. He confirmed to me that he knows that he has to 25% kidney function. He tells me that the [place] physician told him about that but he has never seen a measurement operator before. He denies any problem with urination currently. He denies any history of kidney stones, hematuria, nor history of any hepatitis in the past. When I ask him about what the doctor in [place] told him about the possible cause of his kidney disease, he could not really tell me. Past Medical History Cardiac Medical History: Reports: CHF-Systolic, DVT, Hypertension-primary, Pulmonary Embolism Pulmonary Medical History: Reports: Chronic Obstructive Pulmonary Disease (COPD) , Sleep Apnea Renal/ Medical History: Reports: Benign Prostatic Hyperplasia, Chronic Kidney Disease Stage IV GI Medical History: Reports: Diverticulitis Musculoskeltal Medical History: Reports: Arthritis, Gout Past Surgical History Past Surgical History: Reports: Cholecystectomy, Colostomy - And revision, Pacemaker, Tonsillectomy, Other - Dialysis shunt and revision Social History Information Source: [facility] Records Smoking Status: Never Smoker Frequency of Alcohol Use: None Hx Recreational Drug Use: No Hx Prescription Drug Abuse: No - Advance Directive Resuscitation Status: Full Code Family History Family History: Reviewed & Not Pertinent Parental Family History Reviewed: Yes Children Family History Reviewed: Unknown Sibling(s) Family History Reviewed.: Unknown Medication/Allergy Home Medications: Acetaminophen [Tylenol 325 mg Tablet] 650 mg PO Q8HP PRN 08/26/16 Allopurinol [Zyloprim] 300 mg PO DAILY 08/26/16 Ascorbic Acid [Vitamin C 500 mg Tablet] 500 mg PO DAILY 08/26/16 Calcitriol [Rocaltrol 0.25 mcg Capsule] 0.25 mcg PO DAILY 08/26/16 Folic Acid [Folvite 1 mg Tablet] 1 mg PO DAILY 08/26/16 Furosemide [Lasix] 40 mg PO BID 08/26/16 Hydrocodone/Acetaminophen [[place] 5-325 mg Tablet] 1 tab PO Q8HP PRN 08/26/16 Melatonin/Pyridoxine [Melatonin 5 mg Tablet] 5 mg PO QHS 08/26/16 Methocarbamol [Robaxin 750 mg Tablet] 750 mg PO TIDP PRN 08/26/16 Oxycodone HCl [Oxy-Ir 5 mg Tablet] 5 mg PO BIDP PRN 08/26/16 Varenicline Tartrate [Chantix 1 mg Tablet] 1 mg PO BID 08/26/16 Allergies/Adverse Reactions: shellfish derived Allergy (Verified 07/22/16 17:31) Review of Systems All systems: reviewed and no additional remarkable complaints except as stated Review of Systems: Constitutional: ABSENT: chills, fatigue, fever(s), headache(s), weight gain, weight loss Eyes: ABSENT: visual disturbances Ears: ABSENT: hearing changes Cardiovascular: ABSENT: chest pain, dyspnea on exertion, orthropnea, palpitations; admits lower extremity edema Respiratory: ABSENT: cough, dyspnea, hemoptysis Gastrointestinal: ABSENT: abdominal pain, constipation, diarrhea, hematemesis, hematochezia, nausea, vomiting Genitourinary: ABSENT: dysuria, hematuria Musculoskeletal: ABSENT: joint swelling Integumentary: ABSENT: rash, wounds Neurological: ABSENT: abnormal gait, abnormal speech, confusion, dizziness, focal weakness, numbness, syncope Psychiatric: ABSENT: anxiety, depression Endocrine: ABSENT: cold intolerance, heat intolerance, polydipsia, polyuria Hematologic/Lymphatic: ABSENT: easy bleeding, easy bruising, lymphadenopathy Physical Exam Vital Signs: Temp Pulse Resp BP Pulse Ox 98.2 F 69 19 111/83 100 08/27/16 15:23 08/27/16 15:23 08/27/16 15:23 08/27/16 15:23 08/27/16 15:23 Intake & Output 08/26/16 08/27/16 08/28/16 06:59 06:59 06:59 Intake Total 305 1394 794 Output Total 400 325 725 Balance -95 1069 69 Weight 86.1 kg Exam: General appearance: no acute distress, very somnolent on BiPAP, well-developed, well-nourished Head exam: PRESENT: atraumatic, normocephalic Eye exam: PRESENT: Conjunctiva pale, EOMI, PERRLA. ABSENT: conjunctival injection, scleral icterus Mouth exam: PRESENT: moist, neck supple, tongue midline Neck exam: PRESENT: full ROM. ABSENT: carotid bruit, JVD, lymphadenopathy, thyromegaly Respiratory exam: PRESENT: Diminished to auscultation bilaterally. ABSENT: rales, rhonchi, stridor, wheezes Cardiovascular exam: PRESENT: RRR, +S1, +S2. ABSENT: systolic murmur Pulses: PRESENT: normal radial pulses, normal dorsalis pedis pulses GI/Abdominal exam: PRESENT: normal bowel sounds, soft. ABSENT: guarding, mass, tenderness Rectal exam: deferred Extremities exam: PRESENT: full ROM. Grade 1 bilateral lower extremity pitting edema, there is some warmth and erythema on his left lower extremity consistent with cellulitis ABSENT: calf tenderness Musculoskeletal: PRESENT: full ROM. ABSENT: deformity Neurological exam: PRESENT: Somnolent but arousable for short period of time, reflexes normal, CN II-XII grossly intact. ABSENT: motor sensory deficit Psychiatric exam: PRESENT: appropriate affect, normal mood. ABSENT: homicidal ideation, suicidal ideation Skin exam: PRESENT: intact, dry, warm. ABSENT: rash Results Laboratory Results: 08/27/16 06:08 08/27/16 06:08 08/27/16 08/27/16 06:08 06:08 WBC 10.5 RBC 3.78 L Hgb 10.1 L Hct 31.7 L MCV 84 MCH 26.8 L MCHC 31.9 L RDW 20.4 H Plt Count 140 L Seg Neutrophils % 80.4 H Lymphocytes % 10.1 L Monocytes % 8.4 Eosinophils % 0.7 Basophils % 0.4 Absolute Neutrophils 8.4 H Absolute Lymphocytes 1.1 Absolute Monocytes 0.9 Absolute Eosinophils 0.1 Absolute Basophils 0.0 Sodium 133.2 L Potassium 4.6 Chloride 98 Carbon Dioxide 26 Anion Gap 9 BUN 58 H Creatinine 3.23 H Est GFR ( Amer) 23 L Est GFR (Non-Af Amer) 19 L Glucose 104 Calcium 7.6 L Impressions: Chest X-Ray 08/25/16 13:18 IMPRESSION: Left retrocardiac airspace disease either atelectasis or pneumonia. Tibia/Fibula X-Ray 08/25/16 17:34 IMPRESSION: NO SIGNIFICANT RADIOGRAPHIC ABNORMALITY. Renal Ultrasound 08/27/16 00:00 IMPRESSION: NORMAL RENAL AND BLADDER ULTRASOUND. Assessment & Plan - Diagnosis (1) Chronic kidney disease (CKD), stage IV (severe) Is this a current diagnosis for this admission?: YesPlan: This is most likely secondary to hypertensive nephrosclerosis and vascular disease. Patient's currently nonoliguric. He has very minimal proteinuria and no hematuria. Mild worsening of his kidney function is expected due to diuresis. However I think he needs to be on diuretics and it is possible that this is actually the patient's actual kidney function while on diuretics. We may need further information regarding the patient's baseline kidney function and history regarding his kidney disease once the patient is a little bit more awake and communicative. Continue current diuretics with Lasix IV of the same dose. Monitor kidney function and urine output if possible. I will not worry much with mild worsening of kidney function while on diuretics as well as the patient is clinically stable. Patient does not need any renal replacement therapy. Patient definitely needs to be followed by a measurement operator. He can either follow -up with the [place] measurement operator or I will be happy to see him in my office after discharge. I will check the patient's urine for microalbumin and creatinine, phosphorus and PTH. (2) Hypertensive nephrosclerosis Is this a current diagnosis for this admission?: Yes (3) Anemia in chronic kidney disease (CKD) Is this a current diagnosis for this admission?: Yes (4) Hyponatremia Is this a current diagnosis for this admission?: YesPlan: Mild due to hypervolemic state. (5) Edema Is this a current diagnosis for this admission?: YesPlan: Improving with current dose of diuretics. (6) Hypertension Is this a current diagnosis for this admission?: Yes (7) Left leg cellulitis Is this a current diagnosis for this admission?: Yes (8) Obstructive sleep apnea Is this a current diagnosis for this admission?: Yes - Notes Notes: Thank you very much for this consultation. After discharge the patient should follow-up with the measurement operator or in my clinic in 2-3 weeks. - Time Time Spent: 50 to 70 Minutes
[2016-08-28] MEDS: CLINDAMYCIN 600 MG/D5W RTU 600 MG/50 ML RTUPB IV SCH ×3 (06:00→22:44)
[2016-08-28] MEDS: FUROSEMIDE INJ/PF 40 MG/4 ML SDV IV SCH ×2 (06:00→18:00)
[2016-08-28] MEDS: HEPARIN SOD (PORCINE) 5,000 UNIT/ML 1 ML SYRINGE SUBCUT SCH ×3 (06:00→23:06)
[2016-08-28] MEDS: LANSOPRAZOLE 30 MG TAB.RAP.DR PO SCH (08:00)
[2016-08-28] MEDS: DOXYCYCLINE HYCLATE 100 MG TABLET PO SCH ×2 (10:00→22:43)
[2016-08-28] MEDS: OXYCODONE HCL IR 5 MG TABLET PO PRN (22:43)
--- NOTE | 2016-08-28 23:40 | PROGRESS NOTE E ---
Progress Note NAME: PING MURPHY : 1935 AGE: 80Y DATE: 08/28/2016 ROOM: 528 SUBJECTIVE: The patient's left leg pain and swelling is improving, per his report. He really has no complaints. He has no fevers, chills, headache, chest pain, shortness of breath, abdominal pain, nausea or vomiting. OBJECTIVE: VITAL SIGNS: Temperature 99.0. Blood pressure 135/57. Pulse 70. Respirations 18. O2 saturation is 97% on room air. GENERAL: He is alert and frequently falls asleep while I am talking to him but easily arousable and appropriate. He states that he does this all the time due to his sleep apnea. HEENT: Sclera is nonicteric. Oropharynx has moist mucous membranes. NECK: No JVD. Midline trachea. RESPIRATORY: Clear to auscultation. No wheeze or rhonchi. CARDIAC: Regular rate and rhythm. ABDOMEN: Soft, nontender, obese. EXTREMITIES: With trace edema. SKIN EXAMINATION: Erythema and induration in left lower extremity is markedly improved from admission. LABORATORIES: White blood count 10.9, hemoglobin 10.3, platelets 128,000. Sodium 137, potassium 5.0, chloride 102, bicarbonate 25, BUN 64, creatinine 3.24, glucose 109. ASSESSMENT AND PLAN: 1. LEFT LOWER EXTREMITY CELLULITIS. Continue IV antibiotics for now. 2. ACUTE ON CHRONIC KIDNEY DISEASE, STAGE 4. The patient is normally followed by the [place] [facility]. I have consulted Nephrology here due to worsening renal function. 3. ANEMIA. 4. OBSTRUCTIVE SLEEP APNEA. Continue CPAP. DICTATING PHYSICIAN: LINA MEDINA M.D. [id number] PHY#: [id number] ID: [id number] JOB#: [id number] ACCT: [id number] cc:LINA MEDINA >
--- NOTE | 2016-08-28 23:53 | PROGRESS NOTE E ---
Progress Note NAME: PING MURPHY : 1935 AGE: 80Y DATE: 08/28/2016 ROOM: 528 SUBJECTIVE: The patient continues to be on the BiPAP, but he seems to be more awake when aroused or prompted to respond to some questioning compared to yesterday. His nurse, Jackelyn, just told me that yesterday, he was actually given oxycodone of 10 mg and today, he has not had any, so most definitely that is probably playing a role in his mentation. Other than that, he denies any complaints at all. OBJECTIVE: VITAL SIGNS: Temperature of 99, blood pressure 132/72, pulse rate of 70, respirations of 18, oxygen saturation 98% on BiPAP. GENERAL: The patient was asleep, but arousable and pretty much more awake when prompted and answers more questions even on the BiPAP. HEENT: He has slightly pale conjunctivae, anicteric sclerae. NECK: Supple. LUNGS: Diminished. No crackles. No wheezing. No rhonchi. HEART: Regular rate and rhythm. Positive S1 and S2. No S3 or S4. ABDOMEN: Obese. Positive bowel sounds. Soft and nontender. Benign. EXTREMITIES: He has still has grade 1 bilateral pitting edema, left greater than the right. He still has some erythema and warmth in the left leg with tenderness to touch. SKIN: No jaundice or cyanosis. DIAGNOSTIC DATA: Labs today: CBC with WBC of 10.9, hemoglobin of 10.3, hematocrit of 33.7, platelet count of 128. BMP: Glucose 109.52, chloride of 102, potassium of 5, sodium 137.55, CO2 of 25.69, phosphorus of 3.52, BUN of 54.09, creatinine of 3.24, calcium of 7.94. ASSESSMENT: 1. CHRONIC KIDNEY DISEASE, STAGE 4. PATIENT IS CURRENTLY NONOLIGURIC, SLIGHTLY ELEVATED BUN BECAUSE OF DIURESIS, BUT OVERALL KIDNEY FUNCTION REMAINS UNCHANGED AND STABLE. 2. ANEMIA OF CHRONIC KIDNEY DISEASE. STABLE. 3. HYPONATREMIA, ACTUALLY IMPROVED AND RESOLVED. 4. HYPERTENSION. WELL CONTROLLED. 5. LEFT LOWER EXTREMITY CELLULITIS. ON ANTIBIOTICS. 6. OBSTRUCTIVE SLEEP APNEA. PLAN AND RECOMMENDATION: Continue current management and treatment. At this point, I do not think we need to do anything further in terms of the kidney disease; however, I reiterated with the patient that he needs to follow up regularly with a vacuum cleaner operator upon discharge. He can either follow up with a vacuum cleaner operator from [place] or I would be happy to see him in my office 2-3 weeks after discharge. At this point, continue all other current management. I will not be available starting tonight until Friday morning. If there are any questions or concerns, Dr. Mio Carver will be covering in my absence. DICTATING PHYSICIAN: SULEMAN BROWNE M.D. [id number] PHY#: [id number] ID: [id number] JOB#: [id number] ACCT: [id number] cc: >
[2016-08-29] MEDS: HEPARIN SOD (PORCINE) 5,000 UNIT/ML 1 ML SYRINGE SUBCUT SCH ×3 (07:09→23:25)
[2016-08-29] MEDS: CLINDAMYCIN 600 MG/D5W RTU 600 MG/50 ML RTUPB IV SCH (07:16)
[2016-08-29] MEDS: FUROSEMIDE INJ/PF 40 MG/4 ML SDV IV SCH (07:17)
[2016-08-29 08:00] LABS: ABSOLUTE BASOPHILS # (AUTO) 0.1 10^3/uL (0.0-0.2); ABSOLUTE EOSINOPHILS # (AUTO) 0.1 10^3/uL (0.0-0.6); ABSOLUTE LYMPHOCYTES (AUTO) 1.2 10^3/uL (0.5-4.7); ABSOLUTE MONOCYTES (AUTO) 1.1 10^3/uL (0.1-1.4); ABSOLUTE NEUT (AUTO) 8.4 10^3/uL (1.7-8.2); BASOPHILS % (AUTO) 0.7 % (0-2); EOSINOPHILS % (AUTO) 0.7 % (0-6); HEMATOCRIT 33.7 % (37.9-51.0); HEMOGLOBIN 10.3 g/dL (13.5-17.0); HGB HCT DIFFERENCE -2.8; MEAN CORPUSCULAR HEMOGLOBIN 26.2 pg (27.0-33.4); MEAN CORPUSCULAR HGB CONC 30.5 g/dL (32.0-36.0); MEAN CORPUSCULAR VOLUME 86 fl (80-97); MONOCYTES % (AUTO) 9.7 % (3-13); RED BLOOD COUNT 3.94 10^6/uL (4.35-5.55); RED CELL DISTRIBUTION WIDTH 21.5 % (11.5-14.0); SEGMENTED NEUTROPHILS % (AUTO) 77.9 % (42-78); WHITE BLOOD COUNT 10.9 10^3/uL (4.0-10.5)
[2016-08-29 09:10] LABS: ABSOLUTE EOSINOPHILS # (AUTO) 0.1 10^3/uL (0.0-0.6); ABSOLUTE MONOCYTES (AUTO) 0.8 10^3/uL (0.1-1.4); BASOPHILS % (AUTO) 0.4 % (0-2); EOSINOPHILS % (AUTO) 1.1 % (0-6); HEMATOCRIT 32.5 % (37.9-51.0); HEMOGLOBIN 10.5 g/dL (13.5-17.0); LYMPHOCYTES % (AUTO) 12.2 % (13-45); MEAN CORPUSCULAR HEMOGLOBIN 27.1 pg (27.0-33.4); MEAN CORPUSCULAR HGB CONC 32.5 g/dL (32.0-36.0); MEAN CORPUSCULAR VOLUME 83 fl (80-97); MONOCYTES % (AUTO) 9.9 % (3-13); RED CELL DISTRIBUTION WIDTH 20.9 % (11.5-14.0); SEGMENTED NEUTROPHILS % (AUTO) 76.4 % (42-78); WHITE BLOOD COUNT 7.8 10^3/uL (4.0-10.5)
[2016-08-29 09:23] LABS: ANION GAP 9 (5-19); BLOOD UREA NITROGEN 59 mg/dL (7-20); CALCIUM 8.4 mg/dL (8.4-10.2); CARBON DIOXIDE 28 mmol/L (22-30); CHLORIDE 100 mmol/L (98-107); CREATININE RESULT 3.05 mg/dL (0.52-1.25); GLUCOSE 111 mg/dL (75-110); POTASSIUM 4.6 mmol/L (3.6-5.0)
[2016-08-29 10:04] LABS: ANISOCYTOSIS 3+; OVALOCYTES 1+; PLATELET CLUMPS PRESENT; POIKILOCYTOSIS 1+; POLYCHROMASIA SLIGHT
--- NOTE | 2016-08-29 12:33 | PROGRESS NOTE E ---
Progress Note NAME: PING MURPHY : 1935 AGE: 80Y DATE: 08/29/2016 ROOM: 528 SUBJECTIVE: The patient feels as though his left leg is improving with regard to pain and swelling. He is still not really mobilizing and has basically been in bed the entire admission. He required moderate assistance with physical therapy to get up during their evaluation 2 days ago. He normally lives independently. He denies fever, chills, headache, chest pain, shortness of breath, abdominal pain, nausea, vomiting. OBJECTIVE: VITAL SIGNS: Temperature 98.7, blood pressure 132/70, pulse 70, respirations 18. GENERAL: He is alert and in no apparent distress, oriented x3. HEENT: Sclerae are nonicteric. Conjunctivae clear. Oropharynx has moist mucous membranes. NECK: No JVD. RESPIRATORY: Clear to auscultation. No wheezing or rhonchi. ABDOMEN: Obese, soft, nontender, nondistended. Positive bowel sounds. EXTREMITIES: He has no edema. SKIN: Erythema and induration in the left pretibial area has markedly improved from admission. DIAGNOSTIC DATA: Labs: White blood count is 7.8, hemoglobin 10.5, hematocrit 32.5, platelets 173. Sodium 137, potassium 4.6, chloride 100, bicarb 28, BUN is 59, creatinine 3.05, glucose 111. Hemoglobin A1c of 6.9. Calcium 8.4. ASSESSMENT AND PLAN: 1. Left lower extremity cellulitis. The patient has responded to IV clindamycin nicely. We will discontinue IV clindamycin and start patient on oral clindamycin. Blood cultures were negative. If the patient continues to be stable on oral medication, we will discharge him home in the next day or 2 depending on his mobility. 2. Pneumonia. Chest x-ray showed retrocardiac airspace disease. He is clinically stable on oral doxycycline. 3. Edema. This is likely related to chronic kidney disease. Echocardiogram was normal. Thyroid function studies were normal. Edema has now clinically resolved, so I will discontinue IV Lasix. I will start the patient on maintenance dose of oral Lasix 80 mg q. morning. 4. Chronic kidney disease, stage 4. The patient is followed by Nephrology at the [facility]. He will need to follow up with them as an outpatient. Renal ultrasound was unremarkable. He was seen by Dr. Sommer of Nephrology while in the hospital. Creatinine was probably around baseline. 5. Hypertension. Patient was taken off of blood pressure medicine this admission due to low blood pressures and worsening renal function. Blood pressure is stable. 6. History of pacemaker. 7. Obstructive sleep apnea. The patient has home CPAP. 8. Abnormal urine culture. The patient only had 2 white blood cells per high-powered field on urinalysis. I do not think this represents an infection. 9. Ambulatory dysfunction and generalized weakness. Continue physical therapy. The patient can discharge home once he is medically stable, but may need home health and home physical therapy services. DICTATING PHYSICIAN: LINA MEDINA M.D. [id number] PHY#: [id number] ID: [id number] JOB#: [id number] ACCT: [id number] cc: >
[2016-08-29] MEDS: CLINDAMYCIN HCL 150 MG CAPSULE PO SCH ×3 (12:53→23:23)
[2016-08-29] MEDS: DOXYCYCLINE HYCLATE 100 MG TABLET PO SCH ×2 (12:53→23:22)
[2016-08-29] MEDS: LANSOPRAZOLE 30 MG TAB.RAP.DR PO SCH (12:53)
[2016-08-29] MEDS: LACTOBACILLUS ACIDOPHILUS 250 MG TAB PO SCH (17:18)
[2016-08-29 17:59] LABS: ANION GAP 10 (5-19); BLOOD UREA NITROGEN 64 mg/dL (7-20); CALCIUM 7.9 mg/dL (8.4-10.2); CARBON DIOXIDE 26 mmol/L (22-30); CHLORIDE 102 mmol/L (98-107); CREATININE RESULT 3.24 mg/dL (0.52-1.25); GLUCOSE 110 mg/dL (75-110); SODIUM 137.6 mmol/L (137-145)
[2016-08-29 18:00] LABS: PHOSPHORUS 3.5 mg/dL (2.5-4.5)
[2016-08-30] MEDS: HEPARIN SOD (PORCINE) 5,000 UNIT/ML 1 ML SYRINGE SUBCUT SCH ×3 (06:32→21:39)
[2016-08-30] MEDS: CLINDAMYCIN HCL 150 MG CAPSULE PO SCH ×2 (06:38→12:04)
[2016-08-30 10:05] LABS: ABSOLUTE EOSINOPHILS # (AUTO) 0.1 10^3/uL (0.0-0.6); ABSOLUTE LYMPHOCYTES (AUTO) 0.8 10^3/uL (0.5-4.7); ABSOLUTE MONOCYTES (AUTO) 0.8 10^3/uL (0.1-1.4); ABSOLUTE NEUT (AUTO) 5.5 10^3/uL (1.7-8.2); BASOPHILS % (AUTO) 0.3 % (0-2); EOSINOPHILS % (AUTO) 1.2 % (0-6); HEMATOCRIT 33.7 % (37.9-51.0); HEMOGLOBIN 10.5 g/dL (13.5-17.0); HGB HCT DIFFERENCE -2.2; LYMPHOCYTES % (AUTO) 10.9 % (13-45); MEAN CORPUSCULAR HEMOGLOBIN 26.4 pg (27.0-33.4); MEAN CORPUSCULAR HGB CONC 31.1 g/dL (32.0-36.0); MEAN CORPUSCULAR VOLUME 85 fl (80-97); MONOCYTES % (AUTO) 11.2 % (3-13); RED BLOOD COUNT 3.98 10^6/uL (4.35-5.55); RED CELL DISTRIBUTION WIDTH 21.7 % (11.5-14.0); SEGMENTED NEUTROPHILS % (AUTO) 76.4 % (42-78); WHITE BLOOD COUNT 7.2 10^3/uL (4.0-10.5)
[2016-08-30] MEDS: FUROSEMIDE 80 MG TABLET PO SCH (10:06)
[2016-08-30] MEDS: LANSOPRAZOLE 30 MG TAB.RAP.DR PO SCH (10:07)
[2016-08-30] MEDS: DOXYCYCLINE HYCLATE 100 MG TABLET PO SCH (10:07)
[2016-08-30] MEDS: LACTOBACILLUS ACIDOPHILUS 250 MG TAB PO SCH ×2 (10:07→18:47)
[2016-08-30 10:23] LABS: ANION GAP 11 (5-19); BLOOD UREA NITROGEN 59 mg/dL (7-20); CALCIUM 8.4 mg/dL (8.4-10.2); CARBON DIOXIDE 27 mmol/L (22-30); CHLORIDE 100 mmol/L (98-107); CREATININE RESULT 2.87 mg/dL (0.52-1.25); GLUCOSE 119 mg/dL (75-110); POTASSIUM 4.8 mmol/L (3.6-5.0); SODIUM 138.4 mmol/L (137-145)
[2016-08-30] MEDS ORDERED: MAGNESIUM HYDROXIDE SUSP 30 ML UDCUP PO ONE (13:27)
[2016-08-30] MEDS ORDERED: VANCOMYCIN HCL 0 MG in DEXTROSE 5%-WATER 250 ML IV NR (14:30)
[2016-08-30] MEDS ORDERED: VANCOMYCIN HCL 1,250 MG in DEXTROSE 5%-WATER 250 ML IV SCH (16:00)
--- NOTE | 2016-08-30 17:19 | PDOC CONSULTATION ---
History of Present Illness Admission Date/PCP: 08/25/16 18:14 History of Present Illness: PING MURPHY is a 80 year old male with left leg pain. He was admitted on with cellulitis of the left leg. He was started on IV clindamycin at that time for which she saw improvement he was then transitioned to p.o. and the redness swelling and pain returned. Patient denies numbness or tingling. Pain worse with motion. Pain 5/10. Denies fever chills or sweats. Past Medical History Cardiac Medical History: Reports: Congestive Heart Failure, DVT, Hypertension, Pulmonary Embolism Pulmonary Medical History: Reports: Chronic Obstructive Pulmonary Disease (COPD) , Sleep Apnea Renal/ Medical History: Reports: Chronic Kidney Disease, End Stage Renal Disease - myglobinuria, rhabdomyolysis GI Medical History: Reports: Diverticulitis Musculoskeltal Medical History: Reports: Arthritis, Gout Past Surgical History Past Surgical History: Reports: Cholecystectomy, Colostomy - And revision, Pacemaker, Tonsillectomy, Other - Dialysis shunt and revision Social History Smoking Status: Never Smoker Frequency of Alcohol Use: None Hx Recreational Drug Use: No Hx Prescription Drug Abuse: No - Advance Directive Resuscitation Status: Full Code Family History Family History: Reviewed & Not Pertinent Parental Family History Reviewed: No Children Family History Reviewed: No Sibling(s) Family History Reviewed.: No Medication/Allergy Home Medications: Acetaminophen [Tylenol 325 mg Tablet] 650 mg PO Q8HP PRN 08/26/16 Allopurinol [Zyloprim] 300 mg PO DAILY 08/26/16 Ascorbic Acid [Vitamin C 500 mg Tablet] 500 mg PO DAILY 08/26/16 Calcitriol [Rocaltrol 0.25 mcg Capsule] 0.25 mcg PO DAILY 08/26/16 Folic Acid [Folvite 1 mg Tablet] 1 mg PO DAILY 08/26/16 Furosemide [Lasix] 40 mg PO BID 08/26/16 Hydrocodone/Acetaminophen [Purlear 5-325 mg Tablet] 1 tab PO Q8HP PRN 08/26/16 Melatonin/Pyridoxine [Melatonin 5 mg Tablet] 5 mg PO QHS 08/26/16 Methocarbamol [Robaxin 750 mg Tablet] 750 mg PO TIDP PRN 08/26/16 Oxycodone HCl [Oxy-Ir 5 mg Tablet] 5 mg PO BIDP PRN 08/26/16 Varenicline Tartrate [Chantix 1 mg Tablet] 1 mg PO BID 08/26/16 Allergies/Adverse Reactions: shellfish derived Allergy (Verified 07/22/16 17:31) Review of Systems Constitutional: ABSENT: chills, fever(s), headache(s), weight gain, weight loss Eyes: ABSENT: visual disturbances Ears: ABSENT: hearing changes Cardiovascular: ABSENT: chest pain, dyspnea on exertion, edema, orthropnea, palpitations Respiratory: ABSENT: cough, hemoptysis Gastrointestinal: ABSENT: abdominal pain, constipation, diarrhea, hematemesis, hematochezia, nausea, vomiting Genitourinary: ABSENT: dysuria, hematuria Musculoskeletal: PRESENT: as per HPI Integumentary: ABSENT: rash, wounds Neurological: ABSENT: abnormal gait, abnormal speech, confusion, dizziness, focal weakness, syncope Psychiatric: ABSENT: anxiety, depression, homidical ideation, suicidal ideation Endocrine: ABSENT: cold intolerance, heat intolerance, menstrual abnormalities, polydipsia, polyuria Hematologic/Lymphatic: ABSENT: easy bleeding, easy bruising, lymphadenopathy Physical Exam Vital Signs: Temp Pulse Resp BP Pulse Ox 98.6 F 70 18 134/67 H 99 08/30/16 15:33 08/30/16 15:33 08/30/16 15:33 08/30/16 15:33 08/30/16 15:33 Intake & Output 08/29/16 08/30/16 08/31/16 06:59 06:59 06:59 Intake Total 900 930 240 Output Total 800 700 Balance 100 230 240 Weight 86.1 kg 129.7 kg General appearance: PRESENT: no acute distress, well-developed, well-nourished Head exam: PRESENT: atraumatic, normocephalic Eye exam: PRESENT: conjunctiva pink, PERRLA. ABSENT: scleral icterus Ear exam: PRESENT: normal external ear exam Mouth exam: PRESENT: moist, tongue midline Neck exam: PRESENT: full ROM. ABSENT: carotid bruit, JVD, lymphadenopathy, thyromegaly Respiratory exam: PRESENT: unlabored Cardiovascular exam: PRESENT: RRR. ABSENT: diastolic murmur, rubs, systolic murmur Pulses: PRESENT: normal dorsalis pedis pul, +2 pedal pulses bilateral Vascular exam: PRESENT: normal capillary refill GI/Abdominal exam: PRESENT: normal bowel sounds, soft. ABSENT: distended, guarding, mass, organolmegaly, rebound, tenderness Rectal exam: PRESENT: deferred Musculoskeletal exam: PRESENT: other - Left lower extremity: Erythema along pretibial area with tenderness to palpation. Pain with forced passive plantar flexion of the foot. Dorsalis pedis pulse 2+. Intact sensation. Compartments soft and compressible no sign of compartment syndrome. No palpable fluctuance. Neurological exam: PRESENT: alert, awake, oriented to person, oriented to place , oriented to time, oriented to situation, CN II-XII grossly intact. ABSENT: motor sensory deficit Psychiatric exam: PRESENT: appropriate affect, normal mood. ABSENT: homicidal ideation, suicidal ideation Skin exam: PRESENT: dry, intact, warm. ABSENT: cyanosis, rash Results Laboratory Results: 08/30/16 09:25 08/30/16 09:25 08/28/16 08/30/16 08/30/16 05:50 09:25 09:25 WBC 7.2 RBC 3.98 L Hgb 10.5 L Hct 33.7 L MCV 85 MCH 26.4 L MCHC 31.1 L RDW 21.7 H Plt Count 179 Seg Neutrophils % 76.4 Lymphocytes % 10.9 L Monocytes % 11.2 Eosinophils % 1.2 Basophils % 0.3 Absolute Neutrophils 5.5 Absolute Lymphocytes 0.8 Absolute Monocytes 0.8 Absolute Eosinophils 0.1 Absolute Basophils 0.0 Sodium 137.6 138.4 Potassium 5.0 4.8 Chloride 102 100 Carbon Dioxide 26 27 Anion Gap 10 11 BUN 64 H 59 H Creatinine 3.24 H 2.87 H Est GFR ( Amer) 23 L 26 L Est GFR (Non-Af Amer) 19 L 21 L Glucose 110 119 H Calcium 7.9 L 8.4 Phosphorus 3.5 Impressions: Chest X-Ray 08/25/16 13:18 IMPRESSION: Left retrocardiac airspace disease either atelectasis or pneumonia. Tibia/Fibula X-Ray 08/25/16 17:34 IMPRESSION: NO SIGNIFICANT RADIOGRAPHIC ABNORMALITY. Renal Ultrasound 08/27/16 00:00 IMPRESSION: NORMAL RENAL AND BLADDER ULTRASOUND. Assessment & Plan - Diagnosis (1) Left leg cellulitis Is this a current diagnosis for this admission?: YesPlan: On physical examination I do not appreciate underlying fluid collection but given fact patient has not seen significant improvement with antibiotics underlying abscess remains within the differential. Unfortunately patient cannot receive a CT scan with contrast or MRI but I have recommended ultrasound to evaluate for possible deep fluid collection if MRI is negative would consider further antibiotic treatment. In the meantime patient will continue IV antibiotics.
[2016-08-30] MEDS ORDERED: ERTAPENEM SODIUM 1 GM in NORMAL SALINE 50 ML IV SCH (18:00)
[2016-08-30] MEDS: DOCUSATE SODIUM 100 MG CAPSULE PO SCH (18:47)
--- NOTE | 2016-08-30 19:42 | PROGRESS NOTE E ---
Progress Note NAME: PING MURPHY : 1935 AGE: 80Y DATE: 08/30/2016 ROOM: 528 TIME SPENT MANAGING PATIENT: Thirty-five minutes. SUBJECTIVE: The patient still has a significant amount of pain in his left lower extremity to the point that he cannot really participate in physical therapy. This may be slightly worse since discontinuing IV antibiotics yesterday. He denies fever or chills, nausea or vomiting, chest pain, shortness of breath. OBJECTIVE: VITAL SIGNS: Temperature 98.2, blood pressure 135/65, pulse 70, respirations 19. GENERAL: He is alert, in no apparent distress, answers questions appropriately. HEENT: Sclerae are nonicteric. Conjunctivae are clear. Oropharynx has moist mucous membranes. NECK: No JVD. Midline trachea. RESPIRATORY: Clear to auscultation, no wheezes or rhonchi. CARDIAC: Regular rate and rhythm. No murmurs, gallops or rubs. ABDOMEN: Soft, nontender, nondistended. Positive bowel sounds. EXTREMITIES: He has no edema in his right lower extremity. He has trace edema in left lower extremity. SKIN: Erythema and induration as well as tenderness in the left pretibial region that has worsened over the past 24 hours. MUSCULOSKELETAL: The patient has pain with passive range of motion of the left ankle radiating up into the calf in the tibial region. LABORATORY DATA: White blood count 7.2, hemoglobin 10.5, hematocrit 33.7, platelets 179. Sodium 138, potassium 4.8, chloride 100, bicarb 27, BUN 59, creatinine 2.87, glucose 119, calcium 8.4. ASSESSMENT AND PLAN: 1. LEFT LOWER EXTREMITY CELLULITIS. I am concerned about a deep space infection given worsening/persistent symptoms. Would like to disk continue clindamycin and doxycycline. I would like to start the patient on IV imipenem and IV vancomycin. I will consult Dr. Medina of orthopedics. I have discussed the case with Dr. Medina. He has recommended that we do an ultrasound of the extremity to rule out deep space fluid collection. Unfortunately, we are unable to do an MRI secondary to pacemaker. We are unable to do a contrasted CT secondary to stage 4 chronic kidney disease. 2. PNEUMONIA. The patient was noted to have retrocardiac airspace disease on x-ray. He is on adequate antibiotic coverage for soft tissue infection anyway. 3. EDEMA. Much improved from admission. The patient was taken off IV Lasix yesterday and placed on maintenance dose of Lasix 80 mg daily. This is likely secondary to chronic kidney disease. Renal ultrasound was unremarkable. Thyroid function studies were normal. Echocardiogram was normal. 4. CHRONIC KIDNEY DISEASE STAGE 4. Probably around baseline. The patient is followed by nephrology at the [facility]. Renal ultrasound was unremarkable. The patient is being followed by Dr. Sommer of nephrology while in the hospital. 5. HYPERTENSION. Blood pressure is stable at this time. The patient was taken off of blood pressure medicine this admission due to low blood pressure and worsening renal failure. 6. HISTORY OF PACEMAKER. 7. OBSTRUCTIVE SLEEP APNEA. Continue CPAP. 8. URINARY TRACT INFECTION WITH URINE GROWING E. COLI AND PSEUDOMONAS. This should be adequately covered by IV imipenem based on susceptibility. 9. AMBULATORY DYSFUNCTION AND GENERALIZED WEAKNESS. Continue physical therapy. DICTATING PHYSICIAN: LINA MEDINA M.D. [id number] PHY#: [id number] ID: [id number] JOB#: [id number] ACCT: [id number] cc: >
[2016-08-30] MEDS: OXYCODONE HCL IR 5 MG TABLET PO PRN (21:46)
[2016-08-31] MEDS: HEPARIN SOD (PORCINE) 5,000 UNIT/ML 1 ML SYRINGE SUBCUT SCH ×3 (05:14→22:02)
[2016-08-31] MEDS: LANSOPRAZOLE 30 MG TAB.RAP.DR PO SCH (07:57)
[2016-08-31] MEDS: FUROSEMIDE 80 MG TABLET PO SCH (09:49)
[2016-08-31] MEDS: DOCUSATE SODIUM 100 MG CAPSULE PO SCH ×2 (09:49→18:15)
[2016-08-31] MEDS: LACTOBACILLUS ACIDOPHILUS 250 MG TAB PO SCH ×2 (09:50→18:16)
[2016-08-31] MEDS ORDERED: ALLOPURINOL 300 MG TABLET PO ONE (13:00)
[2016-08-31] MEDS ORDERED: FOLIC ACID 1 MG TABLET PO ONE (13:00)
[2016-08-31] MEDS ORDERED: CALCITRIOL 0.25 MCG CAPSULE PO ONE (13:00)
[2016-08-31] MEDS: CLINDAMYCIN HCL 150 MG CAPSULE PO SCH ×3 (13:13→23:50)
--- NOTE | 2016-08-31 13:54 | PDOC PROGRESS REPORT ---
Subjective Progress Note for:: 08/31/16 Subjective:: Patient seen on morning rounds. He is resting in bed. He awakens easily to verbal stimuli. He complains of pain most of his joints from laying in bed. He denies any shortness of breath, cough or dyspnea. He denies any chest pain, palpitations or headache. He denies any nausea, vomiting or abdominal pain. Remaining review of systems are negative. Physical Exam Vital Signs: Temp Pulse Resp BP Pulse Ox 98.7 F 69 19 114/63 96 08/31/16 11:07 08/31/16 11:07 08/31/16 11:07 08/31/16 11:07 08/31/16 11:07 Intake & Output 08/30/16 08/31/16 09/01/16 06:59 06:59 06:59 Intake Total 930 490 120 Output Total 700 Balance 230 490 120 Weight 129.7 kg 129.7 kg General appearance: PRESENT: no acute distress, obese, well-developed, well- nourished Head exam: PRESENT: atraumatic, normocephalic Eye exam: PRESENT: conjunctiva pink, EOMI, PERRLA. ABSENT: scleral icterus Ear exam: PRESENT: normal external ear exam Mouth exam: PRESENT: moist, tongue midline Neck exam: ABSENT: carotid bruit, JVD, lymphadenopathy, thyromegaly Respiratory exam: PRESENT: clear to auscultation francois. ABSENT: rales, rhonchi, wheezes Cardiovascular exam: PRESENT: RRR. ABSENT: diastolic murmur, rubs, systolic murmur Pulses: PRESENT: normal dorsalis pedis pul Vascular exam: PRESENT: normal capillary refill GI/Abdominal exam: PRESENT: normal bowel sounds, soft. ABSENT: distended, guarding, mass, organolmegaly, rebound, tenderness Rectal exam: PRESENT: deferred Extremities exam: PRESENT: calf tenderness, +1 edema - left Musculoskeletal exam: PRESENT: full ROM, tenderness Neurological exam: PRESENT: alert, altered, oriented to person, oriented to time , oriented to situation, normal gait Psychiatric exam: PRESENT: appropriate affect, normal mood. ABSENT: homicidal ideation, suicidal ideation Skin exam: PRESENT: dry, intact, warm. ABSENT: cyanosis, rash Results Laboratory Results: 08/30/16 09:25 08/30/16 09:25 Impressions: Chest X-Ray 08/25/16 13:18 IMPRESSION: Left retrocardiac airspace disease either atelectasis or pneumonia. Tibia/Fibula X-Ray 08/25/16 17:34 IMPRESSION: NO SIGNIFICANT RADIOGRAPHIC ABNORMALITY. Renal Ultrasound 08/27/16 00:00 IMPRESSION: NORMAL RENAL AND BLADDER ULTRASOUND. Extremity Ultrasound 08/30/16 00:00 IMPRESSION: SUBCUTANEOUS EDEMA WITHOUT DRAINABLE FLUID COLLECTION/ABSCESS. Assessment & Plan - Diagnosis (1) Left leg cellulitis Is this a current diagnosis for this admission?: YesPlan: Patient lost IV access last evening. He has had no fever for the last 72 hours and no leukocytosis. We will therefore change antibiotics to oral, and hopefully discharge home in the next 48 hours. (2) Urinary tract infection Is this a current diagnosis for this admission?: YesPlan: Treatment completed (3) Chronic kidney disease (CKD), stage IV (severe) Is this a current diagnosis for this admission?: YesPlan: Avoid nephrotoxic medications and dosages (4) History of pacemaker Is this a current diagnosis for this admission?: Yes (5) Hypertension Qualifiers: Hypertension type: essential hypertension Qualified Code(s): I10 - Essential (primary) hypertension Is this a current diagnosis for this admission?: YesPlan: Continue current medications (6) Obstructive sleep apnea Is this a current diagnosis for this admission?: YesPlan: Continue CPAP (7) Edema Qualifiers: Edema type: localized Qualified Code(s): R60.0 - Localized edema Is this a current diagnosis for this admission?: YesPlan: Elevate lower extremities (8) Hyponatremia Is this a current diagnosis for this admission?: YesPlan: Resolved (9) Anemia in chronic kidney disease (CKD) Is this a current diagnosis for this admission?: YesPlan: Stable - Time Time Spent with patient: 25-34 minutes Critical Time spent with patient: 15-24 minutes Medications reviewed and adjusted accordingly: Yes Anticipated discharge: Home with Homehealth
--- NOTE | 2016-08-31 15:40 | PDOC PROGRESS REPORT ---
Subjective Progress Note for:: 08/31/16 Subjective:: Patient seen and evaluated on rounds today. States his left lower extremity is somewhat unchanged since yesterday's examination. Continues to have pain along the front of the tibia. Denies fever chills or sweats. Physical Exam Vital Signs: Temp Pulse Resp BP Pulse Ox 98.7 F 69 19 114/63 96 08/31/16 11:07 08/31/16 11:07 08/31/16 11:07 08/31/16 11:07 08/31/16 11:07 Intake & Output 08/30/16 08/31/16 09/01/16 06:59 06:59 06:59 Intake Total 930 490 360 Output Total 700 Balance 230 490 360 Weight 129.7 kg 129.7 kg Musculoskeletal exam: PRESENT: other - Left lower extremity: Pretibial erythema there is mild weeping of the skin. No palpable fluctuance. Intact plantar flexion/dorsiflexion. Compartments soft and compressible no sign of compartment syndrome Results Laboratory Results: 08/30/16 09:25 08/30/16 09:25 Impressions: Chest X-Ray 08/25/16 13:18 IMPRESSION: Left retrocardiac airspace disease either atelectasis or pneumonia. Tibia/Fibula X-Ray 08/25/16 17:34 IMPRESSION: NO SIGNIFICANT RADIOGRAPHIC ABNORMALITY. Renal Ultrasound 08/27/16 00:00 IMPRESSION: NORMAL RENAL AND BLADDER ULTRASOUND. Extremity Ultrasound 08/30/16 00:00 IMPRESSION: SUBCUTANEOUS EDEMA WITHOUT DRAINABLE FLUID COLLECTION/ABSCESS. Assessment & Plan - Diagnosis (1) Left leg cellulitis Is this a current diagnosis for this admission?: YesPlan: On physical examination I do not appreciate underlying fluid collection but given fact patient has not seen significant improvement with antibiotics underlying abscess remains within the differential. Unfortunately patient cannot receive a CT scan with contrast or MRI he has had a ultrasound which demonstrates subcutaneous edema no evidence of fluid collection. At this point patient will continue p.o. clindamycin given the fact that IV has been lost. Will sign off on the patient will be happy to follow-up if condition changes.
[2016-09-01] MEDS: CLINDAMYCIN HCL 150 MG CAPSULE PO SCH ×3 (06:13→17:09)
[2016-09-01] MEDS: HEPARIN SOD (PORCINE) 5,000 UNIT/ML 1 ML SYRINGE SUBCUT SCH ×3 (06:14→21:42)
[2016-09-01] MEDS: LANSOPRAZOLE 30 MG TAB.RAP.DR PO SCH (07:55)
--- NOTE | 2016-09-01 09:34 | PDOC PROGRESS REPORT ---
Subjective Progress Note for:: 09/01/16 Subjective:: Patient seen on morning rounds. He is resting in bed. He awakens easily to verbal stimuli. He continues to have some pain in left leg but feels it is better today. He again complains of pain most of his joints from laying in bed. He states he was unable to get out of bed yesterday due to achiness. He states he feels better today and will try again. He denies any shortness of breath, cough or dyspnea. He denies any chest pain, palpitations or headache. He denies any nausea, vomiting or abdominal pain. Remaining review of systems are negative. Physical Exam Vital Signs: Temp Pulse Resp BP Pulse Ox 98.6 F 69 19 114/60 98 09/01/16 07:20 09/01/16 07:20 09/01/16 07:20 09/01/16 07:20 09/01/16 07:20 Intake & Output 08/31/16 09/01/16 09/02/16 06:59 06:59 06:59 Intake Total 490 560 Balance 490 560 Weight 129.7 kg 129.5 kg General appearance: PRESENT: no acute distress, obese, well-developed, well- nourished Head exam: PRESENT: atraumatic, normocephalic Eye exam: PRESENT: conjunctiva pink, EOMI, PERRLA. ABSENT: scleral icterus Ear exam: PRESENT: normal external ear exam Mouth exam: PRESENT: moist, tongue midline Respiratory exam: PRESENT: clear to auscultation francois. ABSENT: rales, rhonchi, wheezes Cardiovascular exam: PRESENT: RRR. ABSENT: diastolic murmur, rubs, systolic murmur Pulses: PRESENT: normal dorsalis pedis pul Vascular exam: PRESENT: normal capillary refill GI/Abdominal exam: PRESENT: normal bowel sounds, soft. ABSENT: distended, guarding, mass, organolmegaly, rebound, tenderness Rectal exam: PRESENT: deferred Extremities exam: PRESENT: calf tenderness, +1 edema - left anterior lower leg Musculoskeletal exam: PRESENT: full ROM, tenderness, other - small area of erythema on left anterior calf Neurological exam: PRESENT: alert, awake, oriented to person, oriented to place , oriented to time, oriented to situation, CN II-XII grossly intact. ABSENT: motor sensory deficit Psychiatric exam: PRESENT: appropriate affect, normal mood. ABSENT: homicidal ideation, suicidal ideation Skin exam: PRESENT: erythema - left lower leg, warm Results Laboratory Results: 08/30/16 09:25 08/30/16 09:25 08/28/16 05:50 PTH Intact Impressions: Chest X-Ray 08/25/16 13:18 IMPRESSION: Left retrocardiac airspace disease either atelectasis or pneumonia. Tibia/Fibula X-Ray 08/25/16 17:34 IMPRESSION: NO SIGNIFICANT RADIOGRAPHIC ABNORMALITY. Renal Ultrasound 08/27/16 00:00 IMPRESSION: NORMAL RENAL AND BLADDER ULTRASOUND. Extremity Ultrasound 08/30/16 00:00 IMPRESSION: SUBCUTANEOUS EDEMA WITHOUT DRAINABLE FLUID COLLECTION/ABSCESS. Assessment & Plan - Diagnosis (1) Left leg cellulitis Is this a current diagnosis for this admission?: YesPlan: Patient lost IV access last evening. He has had no fever for the last 72 hours and no leukocytosis. We will therefore change antibiotics to oral, and hopefully discharge home in the next 48 hours. (2) Urinary tract infection Is this a current diagnosis for this admission?: YesPlan: Treatment completed (3) Chronic kidney disease (CKD), stage IV (severe) Is this a current diagnosis for this admission?: YesPlan: Avoid nephrotoxic medications and dosages (4) History of pacemaker Is this a current diagnosis for this admission?: Yes (5) Hypertension Qualifiers: Hypertension type: essential hypertension Qualified Code(s): I10 - Essential (primary) hypertension Is this a current diagnosis for this admission?: YesPlan: Continue current medications (6) Obstructive sleep apnea Is this a current diagnosis for this admission?: YesPlan: Continue CPAP (7) Edema Qualifiers: Edema type: localized Qualified Code(s): R60.0 - Localized edema Is this a current diagnosis for this admission?: YesPlan: Elevate lower extremities (8) Hyponatremia Is this a current diagnosis for this admission?: YesPlan: Resolved (9) Anemia in chronic kidney disease (CKD) Is this a current diagnosis for this admission?: YesPlan: Stable - Time Time Spent with patient: 25-34 minutes Critical Time spent with patient: 15-24 minutes Medications reviewed and adjusted accordingly: Yes Anticipated discharge: Home with Homehealth
[2016-09-01] MEDS: FOLIC ACID 1 MG TABLET PO SCH (10:06)
[2016-09-01] MEDS: ALLOPURINOL 300 MG TABLET PO SCH (10:06)
[2016-09-01] MEDS: CALCITRIOL 0.25 MCG CAPSULE PO SCH (10:06)
[2016-09-01] MEDS: FUROSEMIDE 80 MG TABLET PO SCH (10:06)
[2016-09-01] MEDS: DOCUSATE SODIUM 100 MG CAPSULE PO SCH ×2 (10:06→17:10)
[2016-09-01] MEDS: LACTOBACILLUS ACIDOPHILUS 250 MG TAB PO SCH ×2 (10:07→17:10)
[2016-09-02] MEDS: CLINDAMYCIN HCL 150 MG CAPSULE PO SCH ×5 (05:09→23:51)
[2016-09-02] MEDS: HEPARIN SOD (PORCINE) 5,000 UNIT/ML 1 ML SYRINGE SUBCUT SCH ×3 (05:17→22:19)
[2016-09-02 06:07] LABS: ABSOLUTE EOSINOPHILS # (AUTO) 0.1 10^3/uL (0.0-0.6); ABSOLUTE LYMPHOCYTES (AUTO) 1.1 10^3/uL (0.5-4.7); ABSOLUTE MONOCYTES (AUTO) 0.8 10^3/uL (0.1-1.4); ABSOLUTE NEUT (AUTO) 5.3 10^3/uL (1.7-8.2); BASOPHILS % (AUTO) 0.4 % (0-2); EOSINOPHILS % (AUTO) 1.4 % (0-6); HEMATOCRIT 32.2 % (37.9-51.0); HEMOGLOBIN 10.3 g/dL (13.5-17.0); HGB HCT DIFFERENCE -1.3; LYMPHOCYTES % (AUTO) 14.7 % (13-45); MEAN CORPUSCULAR HEMOGLOBIN 26.5 pg (27.0-33.4); MEAN CORPUSCULAR HGB CONC 31.8 g/dL (32.0-36.0); MEAN CORPUSCULAR VOLUME 83 fl (80-97); MONOCYTES % (AUTO) 10.7 % (3-13); RED BLOOD COUNT 3.87 10^6/uL (4.35-5.55); SEGMENTED NEUTROPHILS % (AUTO) 72.8 % (42-78); WHITE BLOOD COUNT 7.3 10^3/uL (4.0-10.5)
[2016-09-02 06:16] LABS: ALANINE AMINOTRANSFERASE 33 U/L (21-72); ALBUMIN 2.6 g/dL (3.5-5.0); ALKALINE PHOSPHATASE 64 U/L (38-126); ANION GAP 6 (5-19); ASPARTATE AMINO TRANSFERASE 22 U/L (17-59); BILIRUBIN,DIRECT 0.6 mg/dL (0.0-0.4); BLOOD UREA NITROGEN 53 mg/dL (7-20); CALCIUM 8.7 mg/dL (8.4-10.2); CARBON DIOXIDE 29 mmol/L (22-30); CHLORIDE 98 mmol/L (98-107); CREATININE RESULT 2.46 mg/dL (0.52-1.25); GLUCOSE 95 mg/dL (75-110); POTASSIUM 4.7 mmol/L (3.6-5.0); SODIUM 133.1 mmol/L (137-145); TOTAL PROTEIN 5.4 g/dL (6.3-8.2)
[2016-09-02] MEDS: FOLIC ACID 1 MG TABLET PO SCH (09:50)
[2016-09-02] MEDS: FUROSEMIDE 80 MG TABLET PO SCH (09:50)
[2016-09-02] MEDS: LACTOBACILLUS ACIDOPHILUS 250 MG TAB PO SCH ×2 (09:50→19:18)
[2016-09-02] MEDS: LANSOPRAZOLE 30 MG TAB.RAP.DR PO SCH (09:51)
[2016-09-02] MEDS: CALCITRIOL 0.25 MCG CAPSULE PO SCH (09:51)
[2016-09-02] MEDS: ALLOPURINOL 300 MG TABLET PO SCH (09:51)
[2016-09-02] MEDS: DOCUSATE SODIUM 100 MG CAPSULE PO SCH ×2 (09:52→19:18)
--- NOTE | 2016-09-02 13:18 | PDOC PROGRESS REPORT ---
Subjective Progress Note for:: 09/02/16 Subjective:: Patient seen on morning rounds. He is resting in bed. He awakens easily to verbal stimuli. He states pain in the left leg has improved. He again complains of pain most of his joints from laying in bed. He states he was unable to get out of bed yesterday due to achiness. He states he feels better today and will try again. He denies any shortness of breath, cough or dyspnea. He denies any chest pain, palpitations or headache. He denies any nausea, vomiting or abdominal pain. Remaining review of systems are negative. Physical Exam Vital Signs: Temp Pulse Resp BP Pulse Ox 98.3 F 70 18 123/75 99 09/02/16 12:36 09/02/16 12:36 09/02/16 12:36 09/02/16 12:36 09/02/16 12:36 Intake & Output 09/01/16 09/02/16 09/03/16 06:59 06:59 06:59 Intake Total 560 Output Total 2 Balance 560 -2 Weight 129.5 kg 127.8 kg General appearance: PRESENT: no acute distress, well-developed, well-nourished Head exam: PRESENT: atraumatic, normocephalic Eye exam: PRESENT: conjunctiva pink, EOMI, PERRLA. ABSENT: scleral icterus Ear exam: PRESENT: normal external ear exam Mouth exam: PRESENT: moist, tongue midline Neck exam: ABSENT: carotid bruit, JVD, lymphadenopathy, thyromegaly Respiratory exam: PRESENT: clear to auscultation francois. ABSENT: rales, rhonchi, wheezes Cardiovascular exam: PRESENT: RRR. ABSENT: diastolic murmur, rubs, systolic murmur Pulses: PRESENT: normal dorsalis pedis pul Vascular exam: PRESENT: normal capillary refill GI/Abdominal exam: PRESENT: normal bowel sounds, soft. ABSENT: distended, guarding, mass, organolmegaly, rebound, tenderness Rectal exam: PRESENT: deferred Extremities exam: PRESENT: full ROM. ABSENT: calf tenderness, clubbing, pedal edema Neurological exam: PRESENT: alert, awake, oriented to person, oriented to place , oriented to time, oriented to situation, CN II-XII grossly intact. ABSENT: motor sensory deficit Psychiatric exam: PRESENT: appropriate affect, normal mood. ABSENT: homicidal ideation, suicidal ideation Skin exam: PRESENT: dry, intact, warm. ABSENT: cyanosis, rash Results Laboratory Results: 09/02/16 04:41 09/02/16 04:41 09/02/16 09/02/16 04:41 04:41 WBC 7.3 RBC 3.87 L Hgb 10.3 L Hct 32.2 L MCV 83 MCH 26.5 L MCHC 31.8 L RDW 21.0 H Plt Count 199 Seg Neutrophils % 72.8 Lymphocytes % 14.7 Monocytes % 10.7 Eosinophils % 1.4 Basophils % 0.4 Absolute Neutrophils 5.3 Absolute Lymphocytes 1.1 Absolute Monocytes 0.8 Absolute Eosinophils 0.1 Absolute Basophils 0.0 Sodium 133.1 L Potassium 4.7 Chloride 98 Carbon Dioxide 29 Anion Gap 6 BUN 53 H Creatinine 2.46 H Est GFR ( Amer) 31 L Est GFR (Non-Af Amer) 26 L Glucose 95 Calcium 8.7 Total Bilirubin 1.0 AST 22 ALT 33 Alkaline Phosphatase 64 Total Protein 5.4 L Albumin 2.6 L Impressions: Chest X-Ray 08/25/16 13:18 IMPRESSION: Left retrocardiac airspace disease either atelectasis or pneumonia. Tibia/Fibula X-Ray 08/25/16 17:34 IMPRESSION: NO SIGNIFICANT RADIOGRAPHIC ABNORMALITY. Renal Ultrasound 08/27/16 00:00 IMPRESSION: NORMAL RENAL AND BLADDER ULTRASOUND. Extremity Ultrasound 08/30/16 00:00 IMPRESSION: SUBCUTANEOUS EDEMA WITHOUT DRAINABLE FLUID COLLECTION/ABSCESS. Assessment & Plan - Diagnosis (1) Left leg cellulitis Is this a current diagnosis for this admission?: YesPlan: Continue clindamycin, erythema has resolved. Edema is improving (2) Urinary tract infection Is this a current diagnosis for this admission?: YesPlan: Treated (3) Chronic kidney disease (CKD), stage IV (severe) Is this a current diagnosis for this admission?: YesPlan: Avoid nephrotoxic medications and dosages (4) History of pacemaker Is this a current diagnosis for this admission?: Yes (5) Hypertension Qualifiers: Hypertension type: essential hypertension Qualified Code(s): I10 - Essential (primary) hypertension Is this a current diagnosis for this admission?: YesPlan: Continue current medications (6) Obstructive sleep apnea Is this a current diagnosis for this admission?: YesPlan: Continue CPAP (7) Edema Qualifiers: Edema type: localized Qualified Code(s): R60.0 - Localized edema Is this a current diagnosis for this admission?: YesPlan: Elevate lower extremities (8) Hyponatremia Is this a current diagnosis for this admission?: YesPlan: Resolved (9) Anemia in chronic kidney disease (CKD) Is this a current diagnosis for this admission?: YesPlan: Stable - Time Time Spent with patient: 25-34 minutes Critical Time spent with patient: 15-24 minutes Medications reviewed and adjusted accordingly: Yes Anticipated discharge: Home with Homehealth
[2016-09-03] MEDS: HEPARIN SOD (PORCINE) 5,000 UNIT/ML 1 ML SYRINGE SUBCUT SCH ×3 (06:26→21:19)
[2016-09-03] MEDS: CLINDAMYCIN HCL 150 MG CAPSULE PO SCH ×4 (06:26→23:26)
[2016-09-03] MEDS: ALLOPURINOL 300 MG TABLET PO SCH (10:12)
[2016-09-03] MEDS: CALCITRIOL 0.25 MCG CAPSULE PO SCH (10:12)
[2016-09-03] MEDS: DOCUSATE SODIUM 100 MG CAPSULE PO SCH ×2 (10:12→17:35)
[2016-09-03] MEDS: LACTOBACILLUS ACIDOPHILUS 250 MG TAB PO SCH ×2 (10:12→17:35)
[2016-09-03] MEDS: FOLIC ACID 1 MG TABLET PO SCH (10:12)
[2016-09-03] MEDS: LANSOPRAZOLE 30 MG TAB.RAP.DR PO SCH (10:12)
[2016-09-03] MEDS: FUROSEMIDE 80 MG TABLET PO SCH (10:13)
--- NOTE | 2016-09-03 11:07 | PDOC PROGRESS REPORT ---
Subjective Progress Note for:: 09/03/16 Subjective:: Patient seen on morning rounds. He is resting in bed on BIPAP. He awakens easily to verbal stimuli. He states pain in the left leg has improved. He again complains of pain most of his joints from laying in bed. He states he was unable to get out of bed yesterday due to achiness. He states he feels better today and will try again. He denies any shortness of breath, cough or dyspnea. He denies any chest pain, palpitations or headache. He denies any nausea, vomiting or abdominal pain. Remaining review of systems are negative. Physical Exam Vital Signs: Temp Pulse Resp BP Pulse Ox 98.3 F 70 21 H 144/72 H 99 09/03/16 07:56 09/03/16 07:56 09/03/16 07:56 09/03/16 07:56 09/03/16 07:56 Intake & Output 09/02/16 09/03/16 09/04/16 06:59 06:59 06:59 Intake Total 1860 Output Total 2 277 Balance -2 1583 Weight 127.8 kg 124.1 kg General appearance: PRESENT: no acute distress, obese, well-developed, well- nourished Head exam: PRESENT: atraumatic, normocephalic Eye exam: PRESENT: conjunctiva pink, EOMI, PERRLA. ABSENT: scleral icterus Ear exam: PRESENT: normal external ear exam Mouth exam: PRESENT: moist, tongue midline Neck exam: ABSENT: carotid bruit, JVD, lymphadenopathy, thyromegaly Respiratory exam: PRESENT: clear to auscultation francois. ABSENT: rales, rhonchi, wheezes Pulses: PRESENT: normal dorsalis pedis pul Vascular exam: PRESENT: normal capillary refill GI/Abdominal exam: PRESENT: normal bowel sounds, soft. ABSENT: distended, guarding, mass, organolmegaly, rebound, tenderness Rectal exam: PRESENT: deferred Extremities exam: PRESENT: full ROM, tenderness, other - resolving bruising over anterior left lower tibia, movable 2 cm "mass" on anterior left foot. ABSENT: calf tenderness, clubbing, pedal edema Neurological exam: PRESENT: alert, awake, oriented to person, oriented to place , oriented to time, oriented to situation, CN II-XII grossly intact. ABSENT: motor sensory deficit Psychiatric exam: PRESENT: appropriate affect, normal mood. ABSENT: homicidal ideation, suicidal ideation Skin exam: PRESENT: dry, intact, warm, other - resolving bruising over left lower tibial area. ABSENT: cyanosis, rash Results Laboratory Results: 09/02/16 04:41 09/02/16 04:41 Impressions: Chest X-Ray 08/25/16 13:18 IMPRESSION: Left retrocardiac airspace disease either atelectasis or pneumonia. Tibia/Fibula X-Ray 08/25/16 17:34 IMPRESSION: NO SIGNIFICANT RADIOGRAPHIC ABNORMALITY. Renal Ultrasound 08/27/16 00:00 IMPRESSION: NORMAL RENAL AND BLADDER ULTRASOUND. Extremity Ultrasound 08/30/16 00:00 IMPRESSION: SUBCUTANEOUS EDEMA WITHOUT DRAINABLE FLUID COLLECTION/ABSCESS. Assessment & Plan - Diagnosis (1) Left leg cellulitis Is this a current diagnosis for this admission?: YesPlan: Continue clindamycin, erythema has resolved. Edema is improving (2) Urinary tract infection Is this a current diagnosis for this admission?: YesPlan: Treated (3) Chronic kidney disease (CKD), stage IV (severe) Is this a current diagnosis for this admission?: YesPlan: Avoid nephrotoxic medications and dosages (4) History of pacemaker Is this a current diagnosis for this admission?: Yes (5) Hypertension Qualifiers: Hypertension type: essential hypertension Qualified Code(s): I10 - Essential (primary) hypertension Is this a current diagnosis for this admission?: YesPlan: Continue current medications (6) Obstructive sleep apnea Is this a current diagnosis for this admission?: YesPlan: Continue CPAP (7) Edema Qualifiers: Edema type: localized Qualified Code(s): R60.0 - Localized edema Is this a current diagnosis for this admission?: YesPlan: Elevate lower extremities (8) Hyponatremia Is this a current diagnosis for this admission?: YesPlan: Resolved (9) Anemia in chronic kidney disease (CKD) Is this a current diagnosis for this admission?: YesPlan: Stable - Time Time Spent with patient: 25-34 minutes Medications reviewed and adjusted accordingly: Yes Anticipated discharge: Acute Rehab Within: when bed available
--- NOTE | 2016-09-03 15:12 | RADIOLOGY REPORT (SQ) ---
EXAM DESCRIPTION: U/S EXTREMITY NONVASCULAR LTD COMPLETED DATE/TIME: 09/03/2016 2:03 pm REASON FOR STUDY: 2 cm mass left anterior foot COMPARISON: None. TECHNIQUE: Dynamic and static grayscale images acquired of the localized site of clinical concern an d recorded on PACS. Additional selected color Doppler and spectral images recorded. SITE OF CONCERN: Left anterior foot. LIMITATIONS: None. FINDINGS: SKIN AND SUBCUTANEOUS TISSUES: Skin thickening. No underlying mass. DEEP SOFT TISSUES/MUSCLES: No masses. No fluid collections. No edema. VASCULAR: No increased or decreased vascularity. No occlusions. OTHER: No other significant finding. IMPRESSION: NO SOFT TISSUE MASS, FLUID COLLECTION, OR FOREIGN BODY. TECHNICAL DOCUMENTATION: JOB ID: [id number] [employer]- All Rights Reserved
[2016-09-04] MEDS: CLINDAMYCIN HCL 150 MG CAPSULE PO SCH ×4 (06:05→23:22)
[2016-09-04] MEDS: HEPARIN SOD (PORCINE) 5,000 UNIT/ML 1 ML SYRINGE SUBCUT SCH ×3 (06:06→21:26)
[2016-09-04 07:13] LABS: ABSOLUTE EOSINOPHILS # (AUTO) 0.1 10^3/uL (0.0-0.6); ABSOLUTE LYMPHOCYTES (AUTO) 1.1 10^3/uL (0.5-4.7); ABSOLUTE NEUT (AUTO) 4.5 10^3/uL (1.7-8.2); BASOPHILS % (AUTO) 0.6 % (0-2); EOSINOPHILS % (AUTO) 1.4 % (0-6); HEMATOCRIT 35.8 % (37.9-51.0); HEMOGLOBIN 11.5 g/dL (13.5-17.0); HGB HCT DIFFERENCE -1.3; LYMPHOCYTES % (AUTO) 17.1 % (13-45); MEAN CORPUSCULAR HEMOGLOBIN 26.6 pg (27.0-33.4); MEAN CORPUSCULAR HGB CONC 32.1 g/dL (32.0-36.0); MEAN CORPUSCULAR VOLUME 83 fl (80-97); MONOCYTES % (AUTO) 14.2 % (3-13); RED BLOOD COUNT 4.32 10^6/uL (4.35-5.55); RED CELL DISTRIBUTION WIDTH 21.9 % (11.5-14.0); SEGMENTED NEUTROPHILS % (AUTO) 66.7 % (42-78); WHITE BLOOD COUNT 6.7 10^3/uL (4.0-10.5)
[2016-09-04 07:31] LABS: ANION GAP 13 (5-19); BLOOD UREA NITROGEN 42 mg/dL (7-20); CALCIUM 9.1 mg/dL (8.4-10.2); CARBON DIOXIDE 26 mmol/L (22-30); CHLORIDE 97 mmol/L (98-107); GLUCOSE 104 mg/dL (75-110); POTASSIUM 4.5 mmol/L (3.6-5.0); SODIUM 136.3 mmol/L (137-145)
[2016-09-04] MEDS: LANSOPRAZOLE 30 MG TAB.RAP.DR PO SCH (10:12)
[2016-09-04] MEDS: CALCITRIOL 0.25 MCG CAPSULE PO SCH (10:13)
[2016-09-04] MEDS: FUROSEMIDE 80 MG TABLET PO SCH (10:13)
[2016-09-04] MEDS: DOCUSATE SODIUM 100 MG CAPSULE PO SCH ×2 (10:13→17:50)
[2016-09-04] MEDS: ALLOPURINOL 300 MG TABLET PO SCH (10:13)
[2016-09-04] MEDS: LACTOBACILLUS ACIDOPHILUS 250 MG TAB PO SCH ×2 (10:13→17:50)
[2016-09-04] MEDS: FOLIC ACID 1 MG TABLET PO SCH (10:13)
--- NOTE | 2016-09-04 10:29 | PDOC PROGRESS REPORT ---
Subjective Progress Note for:: 09/04/16 Subjective:: Patient seen on morning rounds. He is resting in bed on BIPAP. He awakens easily to verbal stimuli. He states pain in the left leg has improved. He again complains of pain most of his joints from laying in bed. He denies any shortness of breath, cough or dyspnea. He denies any chest pain, palpitations or headache. He denies any nausea, vomiting or abdominal pain. Remaining review of systems are negative. Physical Exam Vital Signs: Temp Pulse Resp BP Pulse Ox 98.6 F 70 16 135/73 H 100 09/04/16 07:43 09/04/16 07:43 09/04/16 07:43 09/04/16 07:43 09/04/16 07:43 Intake & Output 09/03/16 09/04/16 09/05/16 06:59 06:59 06:59 Intake Total 1860 1270 Output Total 277 250 Balance 1583 1020 Weight 124.1 kg 121.9 kg General appearance: PRESENT: no acute distress, obese, well-developed, well- nourished Head exam: PRESENT: atraumatic, normocephalic Eye exam: PRESENT: conjunctiva pink, EOMI, PERRLA. ABSENT: scleral icterus Ear exam: PRESENT: normal external ear exam Mouth exam: PRESENT: moist, tongue midline Neck exam: ABSENT: carotid bruit, JVD, lymphadenopathy, thyromegaly Respiratory exam: PRESENT: clear to auscultation francois. ABSENT: rales, rhonchi, wheezes Cardiovascular exam: PRESENT: RRR. ABSENT: diastolic murmur, rubs, systolic murmur Pulses: PRESENT: normal dorsalis pedis pul Vascular exam: PRESENT: normal capillary refill GI/Abdominal exam: PRESENT: normal bowel sounds, soft. ABSENT: distended, guarding, mass, organolmegaly, rebound, tenderness Rectal exam: PRESENT: deferred Extremities exam: PRESENT: full ROM. ABSENT: calf tenderness, clubbing, pedal edema Neurological exam: PRESENT: alert, awake, oriented to person, oriented to place , oriented to time, oriented to situation, CN II-XII grossly intact. ABSENT: motor sensory deficit Psychiatric exam: PRESENT: appropriate affect, normal mood. ABSENT: homicidal ideation, suicidal ideation Skin exam: PRESENT: dry, intact, warm. ABSENT: cyanosis, rash Results Laboratory Results: 09/04/16 06:03 09/04/16 06:03 09/04/16 09/04/16 06:03 06:03 WBC 6.7 RBC 4.32 L Hgb 11.5 L Hct 35.8 L MCV 83 MCH 26.6 L MCHC 32.1 RDW 21.9 H Plt Count 293 Seg Neutrophils % 66.7 Lymphocytes % 17.1 Monocytes % 14.2 H Eosinophils % 1.4 Basophils % 0.6 Absolute Neutrophils 4.5 Absolute Lymphocytes 1.1 Absolute Monocytes 1.0 Absolute Eosinophils 0.1 Absolute Basophils 0.0 Sodium 136.3 L Potassium 4.5 Chloride 97 L Carbon Dioxide 26 Anion Gap 13 BUN 42 H Creatinine 2.70 H Est GFR ( Amer) 28 L Est GFR (Non-Af Amer) 23 L Glucose 104 Calcium 9.1 Impressions: Chest X-Ray 08/25/16 13:18 IMPRESSION: Left retrocardiac airspace disease either atelectasis or pneumonia. Tibia/Fibula X-Ray 08/25/16 17:34 IMPRESSION: NO SIGNIFICANT RADIOGRAPHIC ABNORMALITY. Renal Ultrasound 08/27/16 00:00 IMPRESSION: NORMAL RENAL AND BLADDER ULTRASOUND. Extremity Ultrasound 09/03/16 00:00 IMPRESSION: NO SOFT TISSUE MASS, FLUID COLLECTION, OR FOREIGN BODY. Assessment & Plan - Diagnosis (1) Left leg cellulitis Is this a current diagnosis for this admission?: YesPlan: Continue clindamycin, erythema has resolved. Edema is resolving (2) Urinary tract infection Is this a current diagnosis for this admission?: YesPlan: Treated (3) Chronic kidney disease (CKD), stage IV (severe) Is this a current diagnosis for this admission?: YesPlan: Avoid nephrotoxic medications and dosages (4) History of pacemaker Is this a current diagnosis for this admission?: Yes (5) Hypertension Qualifiers: Hypertension type: essential hypertension Qualified Code(s): I10 - Essential (primary) hypertension Is this a current diagnosis for this admission?: YesPlan: Continue current medications (6) Obstructive sleep apnea Is this a current diagnosis for this admission?: YesPlan: Continue CPAP (7) Edema Qualifiers: Edema type: localized Qualified Code(s): R60.0 - Localized edema Is this a current diagnosis for this admission?: YesPlan: Elevate lower extremities (8) Hyponatremia Is this a current diagnosis for this admission?: YesPlan: Resolved (9) Anemia in chronic kidney disease (CKD) Is this a current diagnosis for this admission?: YesPlan: Stable - Time Time Spent with patient: 25-34 minutes Critical Time spent with patient: 15-24 minutes Medications reviewed and adjusted accordingly: Yes Anticipated discharge: Acute Rehab Within: when bed available
[2016-09-05] MEDS: HEPARIN SOD (PORCINE) 5,000 UNIT/ML 1 ML SYRINGE SUBCUT SCH ×2 (05:15→13:36)
[2016-09-05] MEDS: CLINDAMYCIN HCL 150 MG CAPSULE PO SCH ×3 (05:52→17:16)
[2016-09-05] MEDS: LANSOPRAZOLE 30 MG TAB.RAP.DR PO SCH (09:09)
[2016-09-05] MEDS: FOLIC ACID 1 MG TABLET PO SCH (09:10)
[2016-09-05] MEDS: ALLOPURINOL 300 MG TABLET PO SCH (09:10)
[2016-09-05] MEDS: LACTOBACILLUS ACIDOPHILUS 250 MG TAB PO SCH ×2 (09:10→17:16)
[2016-09-05] MEDS: FUROSEMIDE 80 MG TABLET PO SCH (09:10)
[2016-09-05] MEDS: DOCUSATE SODIUM 100 MG CAPSULE PO SCH ×2 (09:10→17:16)
[2016-09-05] MEDS: CALCITRIOL 0.25 MCG CAPSULE PO SCH (09:11)
[2016-09-05 13:21] VITALS: BP 147/59
--- NOTE | 2016-09-05 14:51 | PDOC TRANSFER SUMMARY ---
General - Admit/Disc Date/PCP Admission Date/Primary Care Provider: 08/25/16 18:14 Discharge Date: 09/05/16 - Discharge Diagnosis (1) Left leg cellulitis Is this a current diagnosis for this admission?: YesSummary: Resolving. Needs 3 more days of oral Clindamycin (2) Urinary tract infection Is this a current diagnosis for this admission?: YesSummary: Treated and resolved (3) Chronic kidney disease (CKD), stage IV (severe) Is this a current diagnosis for this admission?: YesSummary: Stable. Avoid nephrotoxic medications and dosages (4) History of pacemaker Is this a current diagnosis for this admission?: Yes (5) Hypertension Is this a current diagnosis for this admission?: YesSummary: Continue current medications he is normotensive. (6) Obstructive sleep apnea Is this a current diagnosis for this admission?: YesSummary: Continue CPAP at at bedtime on patient's home CPAP machine on current settings. (7) Edema Is this a current diagnosis for this admission?: YesSummary: Resolved (8) Hyponatremia Is this a current diagnosis for this admission?: YesSummary: Secondary to fluid volume overload and is now resolved with diuresis (9) Anemia in chronic kidney disease (CKD) Is this a current diagnosis for this admission?: YesSummary: Stable - Additional Information Resuscitation Status: Full Code Home Medications: Acetaminophen [Tylenol 325 mg Tablet] 650 mg PO Q8HP PRN 08/26/16 Allopurinol [Zyloprim] 300 mg PO DAILY 08/26/16 Ascorbic Acid [Vitamin C 500 mg Tablet] 500 mg PO DAILY 08/26/16 Calcitriol [Rocaltrol 0.25 mcg Capsule] 0.25 mcg PO DAILY 08/26/16 Folic Acid [Folvite 1 mg Tablet] 1 mg PO DAILY 08/26/16 Furosemide [Lasix] 40 mg PO BID 08/26/16 Hydrocodone/Acetaminophen [[place] 5-325 mg Tablet] 1 tab PO Q8HP PRN 08/26/16 Melatonin/Pyridoxine [Melatonin 5 mg Tablet] 5 mg PO QHS 08/26/16 Methocarbamol [Robaxin 750 mg Tablet] 750 mg PO TIDP PRN 08/26/16 Oxycodone HCl [Oxy-Ir 5 mg Tablet] 5 mg PO BIDP PRN 08/26/16 Varenicline Tartrate [Chantix 1 mg Tablet] 1 mg PO BID 08/26/16 History of Present Illness Admission Date/PCP: 08/25/16 18:14 Hospital Course Hospital Course: Patient was admitted to the telemetry unit. He was started on IV broad- spectrum antibiotics after blood cultures 2 were obtained. He was diuresed for increasing lower extremity edema. No to have worsening BUN and creatinine, in the setting of chronic kidney disease stage IV. Dr. Sommer, nephrology, was consulted. She agreed with the hospitalist management of his chronic kidney disease stage IV. IV antibiotics were continued for 3 days and then transitioned to oral antibiotics. He was noted to have increasing redness of the left lower extremity and fever. He was restarted on IV antibiotics. Orthopedics was consulted. Dr. Medina, patient in consult. Ultrasound of the left leg was obtained. There is no fluid collections identified. His leukocytosis had resolved. He lost IV access and after several attempts by nursing staff were unable to replace it. He was started on oral clindamycin therapy. Left lower extremity erythema resolved. Physical therapy was consulted for mobility assistance. He was slow to progress. After discussion with his daughter and son in law with whom he lives, along with his has sooenti it was felt besti he go to a facility for short-term rehab prior to going home. Discharge planning was consulted. A bed offer has been made by [facility]. Physical Exam Vital Signs: Temp Pulse Resp BP Pulse Ox 98.0 F 70 20 147/59 H 100 09/05/16 11:11 09/05/16 14:00 09/05/16 11:11 09/05/16 11:11 09/05/16 11:11 Intake & Output 09/04/16 09/05/16 09/06/16 06:59 06:59 06:59 Intake Total 1270 914 Output Total 250 Balance 1020 914 Weight 121.9 kg 118.9 kg General appearance: PRESENT: no acute distress, obese, well-developed, well- nourished Head exam: PRESENT: atraumatic, normocephalic Eye exam: PRESENT: conjunctiva pink, EOMI, PERRLA. ABSENT: scleral icterus Ear exam: PRESENT: normal external ear exam Mouth exam: PRESENT: moist, tongue midline Neck exam: ABSENT: carotid bruit, JVD, lymphadenopathy, thyromegaly Respiratory exam: PRESENT: clear to auscultation francois. ABSENT: rales, rhonchi, wheezes Cardiovascular exam: PRESENT: RRR. ABSENT: diastolic murmur, rubs, systolic murmur Pulses: PRESENT: normal dorsalis pedis pul Vascular exam: PRESENT: normal capillary refill GI/Abdominal exam: PRESENT: normal bowel sounds, soft. ABSENT: distended, guarding, mass, organolmegaly, rebound, tenderness Rectal exam: PRESENT: deferred Extremities exam: PRESENT: calf tenderness, other - Left lower anterior leg bruising improving to male Musculoskeletal exam: PRESENT: ambulatory, tenderness Neurological exam: PRESENT: alert, awake, oriented to person, oriented to place , oriented to time, oriented to situation, CN II-XII grossly intact. ABSENT: motor sensory deficit Skin exam: PRESENT: dry, intact, warm, other - resolving echymosis over left anterior lower leg. ABSENT: cyanosis, rash Results Laboratory Results: 09/04/16 06:03 09/04/16 06:03 Impressions: Chest X-Ray 08/25/16 13:18 IMPRESSION: Left retrocardiac airspace disease either atelectasis or pneumonia. Tibia/Fibula X-Ray 08/25/16 17:34 IMPRESSION: NO SIGNIFICANT RADIOGRAPHIC ABNORMALITY. Renal Ultrasound 08/27/16 00:00 IMPRESSION: NORMAL RENAL AND BLADDER ULTRASOUND. Extremity Ultrasound 09/03/16 00:00 IMPRESSION: NO SOFT TISSUE MASS, FLUID COLLECTION, OR FOREIGN BODY. Transfer Plan - Disposition Transfer Plan: Transfer to [facility] Qualifiers [facility] BEING DISCHARGED WITH ANY OF THE FOLLOWING DIAGNOSIS?: No Plan Discharge Plan: Transfer to [facility] Time Spent: Less than 30 Minutes
== END 2016-09-05 18:40 | DRG 602 ==
LOC: ER 12:22 → EH 18:14 → UNDOADMIN 18:51 → EH 18:51 → 5 21:28
PROVIDERS: ADMIT Family Medicine; ATTEND Family Medicine
DX: L03.116 Cellulitis of left lower limb (principal); J18.9 Pneumonia, unspecified organism; N18.4 Chronic kidney disease, stage 4 (severe); N39.0 Urinary tract infection, site not specified; I13.0 Hypertensive heart and chronic kidney disease with heart failure and stage 1 through stage 4 chronic kidney disease, or unspecified chronic kidney disease; I50.22 Chronic systolic (congestive) heart failure; E87.1 Hypo-osmolality and hyponatremia; J44.9 Chronic obstructive pulmonary disease, unspecified; D63.1 Anemia in chronic kidney disease; N40.0 Benign prostatic hyperplasia without lower urinary tract symptoms; G47.33 Obstructive sleep apnea (adult) (pediatric); R26.89 Other abnormalities of gait and mobility; B96.20 Unspecified Escherichia coli [E. coli] as the cause of diseases classified elsewhere; B96.5 Pseudomonas (aeruginosa) (mallei) (pseudomallei) as the cause of diseases classified elsewhere; Z60.2 Problems related to living alone; Z87.891 Personal history of nicotine dependence; Z86.718 Personal history of other venous thrombosis and embolism; Z86.711 Personal history of pulmonary embolism; Z95.0 Presence of cardiac pacemaker
CPT/HCPCS: 36415; 71010; 76770; 76881; 76882; 80048; 80053; 81001; 83036; 83605; 83735; 83880; 83970; 84100; 84439; 84443; 84481; 85025; 85610; 87040; 87086; 87088; 87186; 93005; 93010; 93306; 94660; 99285; G8978-GP; G8979-GP; J1644; J1940; J1956; J2270; J2405; J3370; J3490; J7060

== ENCOUNTER → 2016-10-01 | Day surgery (SDC) | payer MEDICARE, OTHER ==
[~2016-10-01] MED LIST: EPINEPHRINE INJ 1 MG/10 ML DISP.SYRIN ONE; FENTANYL CITRATE INJ/PF 100 MCG/2 ML AMPUL ONE; FLUMAZENIL INJ 0.5 MG/5 ML VIAL IV ONE; GLUCAGON,HUMAN RECOMB 1 MG INJ ONE; MIDAZOLAM 2 MG/2 ML INJ ONE; NALOXONE HCL INJ/PF 0.4 MG/1 ML SDV ONE; ONDANSETRON HCL INJ/PF 4 MG/2 ML SDV ONE
[2016-10-01 16:11] VITALS: BP 131/65
== END ==
LOC: END 15:40
PROVIDERS: ATTEND Internal Medicine Gastroenterology
DX: R11.0 Nausea (principal)
CPT/HCPCS: J0171; J1610; J2250; J2310; J2405; J3010; J3490

== ENCOUNTER 2016-10-08 15:25 | Day surgery (SDC) | payer MEDICARE, OTHER ==
[2016-10-08] MEDS ORDERED: NALOXONE HCL INJ/PF 0.4 MG/1 ML SDV ONE (16:18)
[2016-10-08] MEDS ORDERED: MIDAZOLAM 2 MG/2 ML INJ ONE (16:18)
[2016-10-08] MEDS ORDERED: FLUMAZENIL INJ 0.5 MG/5 ML VIAL IV ONE (16:19)
[2016-10-08] MEDS ORDERED: EPINEPHRINE INJ 1 MG/10 ML DISP.SYRIN ONE (16:19)
[2016-10-08] MEDS ORDERED: GLUCAGON,HUMAN RECOMB 1 MG INJ ONE (16:19)
[2016-10-08] MEDS ORDERED: FENTANYL CITRATE INJ/PF 100 MCG/2 ML AMPUL ONE (16:19)
--- NOTE | 2016-10-08 17:09 | Operative Report ---
Operative Report DATE OF SURGERY: 10/08/16 Operative Report: Pre-op diagnosis: Nausea and vomiting Post-op diagnosis: Antral gastritis, duodenitis, and duodenal erosions Surgery: Esophagogastroduodenoscopy with Medications: Versed 2mg Fentanyl 100mcg IV push Tissue removed: Antral biopsy for pathology Procedure: After informed consent obtained from patient, the throat was sprayed with Hurricane and conscious sedation was achieved. The upper endoscope was inserted into the esophagus under direct vision and advanced into the stomach. The duodenum was entered and examined to the second part. Endoscope was then slowly pulled out of the patient as the mucosa was examined into details. Patient tolerated procedure well. Findings Esophagus: Normal Z-line at: 40 cm Antrum: Moderate erythema noted in the prepyloric antrum Body: Normal Fundus: Normal Duodenum first part: Moderate erythema with erosions noted in the duodenal bulb Duodenum second part: Normal Plan: Await pathology. Start omeprazole 20 mg daily OPERATION: .
[2016-10-08 18:18] VITALS: BP 115/66
== END 2016-10-08 18:15 | disposition home or self-care (01) ==
LOC: END 15:25
PROVIDERS: ATTEND Internal Medicine Gastroenterology
PROC: 0DB68ZX Excision of Stomach, Via Natural or Artificial Opening Endoscopic, Diagnostic (ICD-10-PCS; principal; 2016-10-08 16:00)
DX: K29.50 Unspecified chronic gastritis without bleeding (principal); K26.9 Duodenal ulcer, unspecified as acute or chronic, without hemorrhage or perforation; K29.80 Duodenitis without bleeding; R63.4 Abnormal weight loss; D63.8 Anemia in other chronic diseases classified elsewhere; I10 Essential (primary) hypertension; I51.9 Heart disease, unspecified; G47.30 Sleep apnea, unspecified; E66.9 Obesity, unspecified; Z68.34 Body mass index [BMI] 34.0-34.9, adult; Z79.899 Other long term (current) drug therapy
CPT/HCPCS: 43239; 88342 ×2; 88305 ×2; J2250; J3010; J0171; J1610; J2310; J3490

== ENCOUNTER 2017-06-15 08:01 | Emergency (ER) | payer OTHER, MEDICARE ==
[2017-06-15] MEDS ORDERED: COLCHICINE 0.6 MG TABLET PO ONE (08:47)
[2017-06-15] MEDS ORDERED: HYDROCODONE/ACETAMINOPHEN 7.5-325 MG TABLET PO ONE (08:48)
--- NOTE | 2017-06-15 08:56 | ER Document Report ---
ED General - General Chief Complaint: Knee Pain Stated Complaint: LEFT KNEE PAIN Time Seen by Provider: 06/15/17 08:37 Mode of Arrival: Ambulatory Information source: Patient Notes: 81-year-old male presents with complaints of left knee swelling. Patient has a history of gout, he is on allopurinol for gout, he states he took 40 mg of prednisone yesterday but it did not help his symptoms. He denies any fevers or chills denies nausea vomiting or diarrhea admits that the left knee is swollen and painful with range of motion TRAVEL OUTSIDE OF THE [place] IN LAST 30 DAYS: No - HPI Onset: Last week Onset/Duration: Persistent, Worse Quality of pain: Achy Severity: Moderate Pain Level: 2 Associated symptoms: Body/muscle aches Exacerbated by: Movement, Walking Relieved by: Denies Similar symptoms previously: Yes Recently seen / treated by doctor: Yes - Related Data Allergies/Adverse Reactions: bacitracin Allergy (Verified 06/15/17 08:04) shellfish derived Allergy (Verified 06/15/17 08:04) Past Medical History - Social History Smoking Status: Never Smoker Cigarette use (# per day): No Chew tobacco use (# tins/day): No Smoking Education Provided: No Family History: Reviewed & Not Pertinent - Past Medical History Cardiac Medical History: Reports: Hx Congestive Heart Failure, Hx Coronary Artery Disease, Hx DVT, Hx Hypertension, Hx Pulmonary Embolism Denies: Hx Heart Attack Pulmonary Medical History: Reports: Hx COPD, Hx Pneumonia, Hx Sleep Apnea Denies: Hx Asthma, Hx Bronchitis Neurological Medical History: Denies: Hx Cerebrovascular Accident, Hx Seizures Renal/ Medical History: Reports: Hx Benign Prostatic Hyperplasia, Hx End Stage Renal Disease - myglobinuria, rhabdomyolysis. 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 Denies recent illness. EENT: Denies eye, ear, throat, or mouth pain or symptoms. Denies nasal or sinus congestion or discharge. Denies throat, tongue, or mouth swelling or difficulty swallowing. CARDIOVASCULAR: Denies chest pain. Denies palpitations or racing or irregular heart beat. Denies ankle edema. RESPIRATORY: Denies cough, cold, or chest congestion. Denies shortness of breath, difficulty breathing, or wheezing. GASTROINTESTINAL: Denies abdominal pain or distention. Denies nausea, vomiting , or diarrhea. Denies blood in vomitus, stools, or per rectum. Denies black, tarry stools. Denies constipation. GENITOURINARY: Denies difficulty urinating, painful urination, burning, frequency, blood in urine, or discharge. MUSCULOSKELETAL: Left knee pain SKIN: Denies rash, lesions or sores. HEMATOLOGIC : Denies easy bruising or bleeding. LYMPHATIC: Denies swollen, enlarged glands. NEUROLOGICAL: Denies confusion or altered mental status. Denies passing out or loss of consciousness. Denies dizziness or lightheadedness. Denies headache. Denies weakness or paralysis or loss of use of either side. Denies problems with gait or speech. Denies sensory loss, numbness, or tingling. Denies seizures. PSYCHIATRIC: Denies anxiety or stress. Denies depression, suicidal ideation, or homicidal ideation. ALL OTHER SYSTEMS REVIEWED AND NEGATIVE. Dictation was performed using [employer] voice recognition software PHYSICAL EXAMINATION: GENERAL: Well-appearing, well-nourished and in no acute distress. HEAD: Atraumatic, normocephalic. EYES: Pupils equal round and reactive to light, extraocular movements intact, sclera anicteric, conjunctiva are normal. ENT: Nares patent, oropharynx clear without exudates. Moist mucous membranes. NECK: Normal range of motion, supple without lymphadenopathy LUNGS: Breath sounds clear to auscultation bilaterally and equal. No wheezes rales or rhonchi. HEART: Regular rate and rhythm without murmurs ABDOMEN: Soft, nontender, nondistended abdomen. No guarding, no rebound. No masses appreciated. Musculoskeletal: Mild edema of the left knee, no erythema no warmth NEUROLOGICAL: Cranial nerves grossly intact. Normal speech, normal gait. Normal sensory, motor exams PSYCH: Normal mood, normal affect. SKIN: Dry, normal turgor, no rashes or lesions noted. Physical Exam - Vital signs Vitals: Temp Pulse Resp BP Pulse Ox 98.7 F 70 20 147/70 H 98 06/15/17 08:10 06/15/17 08:10 06/15/17 08:10 06/15/17 08:10 06/15/17 08:10 Course - Re-evaluation Re-evalutation: 06/15/17 08:55 There is obvious edema of the left knee consistent with gout, there is no erythema patient is afebrile he has no signs of septic joint he has no abrasions no lacerations there is no drainage, I did speak to the patient regarding risks and benefits of the symptoms, he has taken colchicine in the past with no difficulty 06/15/17 09:40 Patient has been instructed to stop the allopurinol, given that his symptoms are starting to improve with medications I will discharge home steroids and very close follow-up. Patient and I discussed concerns of kidney injury fever After performing a Medical Screening Examination, I estimate there is LOW risk for OPEN FRACTURE, COMPARTMENT SYNDROME, TENDON RUPTURE, ACUTE NEUROVASCULAR INJURY, or RETAINED FOREIGN BODY, thus I consider the discharge disposition reasonable. Also, there is no evidence or peritonitis, sepsis, or toxicity. I have reevaluated this patient multiple times and no significant life threatening changes are noted. The patient and I have discussed the diagnosis and risks, and we agree with discharging home with close follow-up with the understanding that symptoms and presentations can change. We also discussed returning to the Emergency Department immediately if new or worsening symptoms occur. We have discussed the symptoms which are most concerning (e.g., changing or worsening pain, fever, numbness, weakness, cool or painful digits) that necessitate immediate return. - Vital Signs Vital signs: Temp Pulse Resp BP Pulse Ox 98.7 F 70 20 147/70 H 98 06/15/17 08:10 06/15/17 08:10 06/15/17 08:10 06/15/17 08:10 06/15/17 08:10 Discharge - Discharge Clinical Impression: Chronic kidney disease (CKD) Qualifiers: Chronic kidney disease stage: stage 4 (severe) Qualified Code(s): N18.4 - Chronic kidney disease, stage 4 (severe) Gout of knee Qualifiers: Gout etiology: unspecified cause Chronicity: acute Laterality: left Qualified Code(s): M10.9 - Gout, unspecified Condition: Stable Disposition: HOME, SELF-CARE Instructions: Gout Diet (OM), Gout ([facility]) Prescriptions: Hydrocodone/Acetaminophen [Hydrocodon-Acetaminoph 7.5-325] 1 each PO Q6 #20 tablet Prednisone [Deltasone 20 mg Tablet] 3 tab PO DAILY 5 Days tablet Referrals: DARYL MUSE PA [Primary Care Provider] - Follow up tomorrow
[2017-06-15 09:46] VITALS: BP 137/76
== END 2017-06-15 10:05 | disposition home or self-care (01) ==
LOC: ER 08:01
DX: M10.9 Gout, unspecified (principal); I12.9 Hypertensive chronic kidney disease with stage 1 through stage 4 chronic kidney disease, or unspecified chronic kidney disease; N18.4 Chronic kidney disease, stage 4 (severe); I25.10 Atherosclerotic heart disease of native coronary artery without angina pectoris; J44.9 Chronic obstructive pulmonary disease, unspecified; Z91.013 Allergy to seafood; Z88.1 Allergy status to other antibiotic agents
CPT/HCPCS: 99283

== ENCOUNTER 2017-08-02 14:25 | Emergency (ER) | payer OTHER, MEDICARE ==
--- NOTE | 2017-08-02 14:54 | ER Document Report ---
ED General - General Mode of Arrival: Ambulatory Information source: Patient TRAVEL OUTSIDE OF THE [place] IN LAST 30 DAYS: No - General Chief Complaint: Fever Stated Complaint: COUGH/FEVER Time Seen by Provider: 08/02/17 14:38 Notes: 81 y.o male with a PMHx of HTN and renal failure presents to the ED with a continued non productive cough and fever. Pt reports that he went to the [facility] for nephrology and had a temperature of 99.5. He states that night at home he started to experience chills and was diaphoretic with an onset of the non pruductive cough that has been consistent since. Pt denies any SOB or any other complaints at this time. Pt denies any Hx of DM, or HLD. Pt reports that he is not on dialysis currently but used to be on dialysis. (KENDRA CRISTINA) - Related Data Allergies/Adverse Reactions: bacitracin Allergy (Verified 08/02/17 14:38) shellfish derived Allergy (Verified 08/02/17 14:38) Past Medical History - General Information source: Patient - Social History Smoking Status: Never Smoker Chew tobacco use (# tins/day): No Frequency of alcohol use: None Drug Abuse: None Family History: Reviewed & Not Pertinent Patient has suicidal ideation: No Patient has homicidal ideation: No - Past Medical History Cardiac Medical History: Reports: Hx Congestive Heart Failure, Hx Coronary Artery Disease, Hx DVT, Hx Hypertension, Hx Pulmonary Embolism Denies: Hx Heart Attack Pulmonary Medical History: Reports: Hx COPD, Hx Pneumonia, Hx Sleep Apnea Denies: Hx Asthma, Hx Bronchitis Neurological Medical History: Denies: Hx Cerebrovascular Accident, Hx Seizures Renal/ Medical History: Reports: Hx Benign Prostatic Hyperplasia, Hx End Stage Renal Disease - myglobinuria, rhabdomyolysis. 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 denies: Short of breath Gastrointestinal: No symptoms reported Genitourinary: No symptoms reported Male Genitourinary: No symptoms reported Musculoskeletal: No symptoms reported Skin: No symptoms reported Hematologic/Lymphatic: No symptoms reported Neurological/Psychological: No symptoms reported -: Yes All other systems reviewed and negative Physical Exam - Vital signs Vitals: Temp Pulse Resp BP Pulse Ox 100.0 F 70 20 137/70 H 97 08/02/17 14:34 08/02/17 14:34 08/02/17 14:34 08/02/17 14:34 08/02/17 14:34 - Notes Notes: PHYSICAL EXAM GENERAL: Alert, interacts well. No acute distress. HEAD: Normocephalic, atraumatic. EYES: Pupils equal, round, and reactive to light. Extraocular movements intact. ENT: Oral mucosa moist, tongue midline. NECK: Full range of motion. Supple. Trachea midline. LUNGS: Clear to auscultation bilaterally, no wheezes, rales, or rhonchi. No respiratory distress. HEART: Regular rate and rhythm. No murmurs, gallops, or rubs. ABDOMEN: Soft, non-tender. Non-distended. Bowel sounds present in all 4 quadrants. No guarding, rebound, or rigidity. EXTREMITIES: Moves all 4 extremities spontaneously. No edema, radial and dorsalis pedis pulses 2/4 bilaterally. No cyanosis. NEUROLOGICAL: Alert and oriented x3. Normal speech. PSYCH: Normal affect, normal mood. SKIN: Warm, dry, normal turgor. No rashes or lesions noted. (KENDRA CRISTINA) Course - Re-evaluation Re-evalutation: 08/02/17 15:19 Chest x-ray reveals no acute process, no increased oxygen requirement from baseline, no increased sputum production, borderline febrile but does not quite meet criteria. No wheezing, no shortness of breath, patient is quite well- appearing. Likely this is a viral infection causing cough. Discussed with patient that we will use a cough suppressant otherwise he should hydrate well, use a humidifier and follow with his primary care physician as an outpatient. No indication for antibiotics at this time. (MYNOR YANEZ) - Vital Signs Vital signs: Temp Pulse Resp BP Pulse Ox 98.3 F 80 18 138/71 H 98 08/02/17 15:26 08/02/17 15:26 08/02/17 15:26 08/02/17 15:26 08/02/17 15:26 Discharge - Discharge Clinical Impression: Acute viral bronchitis Condition: Stable Disposition: HOME, SELF-CARE Additional Instructions: Today your chest x-ray did not show any signs of pneumonia. Your cough and borderline fever is likely being caused by a viral infection. If you develop chest pain, shortness of breath, significantly increased sputum production or are not improving within the next 5 days please return to the emergency department as this may have become bacterial. Please drink plenty fluids, use a humidifier and consider using the Tessalon Perles that I prescribed as a cough suppressant. Prescriptions: Benzonatate [Tessalon Perles 100 mg Capsule] 100 mg PO Q8HP PRN #10 capsule PRN Reason: Referrals: DARYL MUSE PA [Primary Care Provider] - Follow up in 3-5 days Scribe Attestation: 08/02/17 19:47 I personally performed the services described in the documentation, reviewed and edited the documentation which was dictated to the scribe in my presence, and it accurately records my words and actions. (MYNOR YANEZ) Scribe Documentation - Scribe Written by Sylvester:: Sylvester Harrington 08/02/17 [id number] acting as scribe for :: Fili
--- NOTE | 2017-08-02 15:07 | RADIOLOGY REPORT (SQ) ---
EXAM DESCRIPTION: CHEST 2 VIEWS COMPLETED DATE/TIME: 08/02/2017 2:59 pm REASON FOR STUDY: coughing, fever COMPARISON: 08/25/2016 EXAM PARAMETERS: NUMBER OF VIEWS: two views TECHNIQUE: Digital Frontal and Lateral radiographic views of the chest acquired. RADIATION DOSE: NA LIMITATIONS: none FINDINGS: LUNGS AND PLEURA: No opacities, masses or pneumothorax. No pleural effusion. MEDIASTINUM AND HILAR STRUCTURES: No masses or contour abnormalities. HEART AND VASCULAR STRUCTURES: Heart stable in size. No evidence for failure. BONES: No acute findings. HARDWARE: Stable. OTHER: No other significant finding. IMPRESSION: NO ACUTE RADIOGRAPHIC FINDING IN THE CHEST. NO SIGNIFICANT CHANGE FROM PRIOR STUDY. TECHNICAL DOCUMENTATION: JOB ID: [id number] [employer]- All Rights Reserved Reading location - IP/workstation name: [email or web address]
[2017-08-02 15:33] VITALS: BP 138/71
== END 2017-08-02 15:26 | disposition home or self-care (01) ==
LOC: ER 14:25
DX: J20.8 Acute bronchitis due to other specified organisms (principal); R50.9 Fever, unspecified; R05 Cough; R61 Generalized hyperhidrosis; I25.10 Atherosclerotic heart disease of native coronary artery without angina pectoris; I10 Essential (primary) hypertension; J44.9 Chronic obstructive pulmonary disease, unspecified
CPT/HCPCS: 71046; 99284

== ENCOUNTER 2018-04-09 17:19 | Emergency (ER) | payer OTHER, MEDICARE ==
--- NOTE | 2018-04-09 19:35 | RADIOLOGY REPORT (SQ) ---
EXAM DESCRIPTION: CHEST SINGLE VIEW COMPLETED DATE/TIME: 04/09/2018 7:21 pm REASON FOR STUDY: shortness of breath COMPARISON: None. EXAM PARAMETERS: NUMBER OF VIEWS: One view. TECHNIQUE: Single frontal radiographic view of the chest acquired. RADIATION DOSE: NA LIMITATIONS: None. FINDINGS: LUNGS AND PLEURA: No opacities, masses or pneumothorax. No pleural effusion. MEDIASTINUM AND HILAR STRUCTURES: No masses. Contour normal. HEART AND VASCULAR STRUCTURES: Heart normal in size. Normal vasculature. BONES: No acute findings. HARDWARE: Cardiac unchanged. OTHER: No other significant finding. IMPRESSION: NO ACUTE RADIOGRAPHIC FINDING IN THE CHEST. TECHNICAL DOCUMENTATION: JOB ID: [id number] [employer]- All Rights Reserved Reading location - IP/workstation name: [email or web address]
--- NOTE | 2018-04-09 20:05 | ER Document Report ---
ED Medical Screen (RME) - General Chief Complaint: Cough Stated Complaint: DIFFICULTY BREATHING Time Seen by Provider: 04/09/18 19:57 Notes: 82-year-old male with complaints of cough, congestion, mild shortness of breath for the past 5 days. He does report chest pain but does associate this with the cough. Denies fever/chills. He states he feels like he is developing pneumonia. He states he has COPD, uses pro-air only at home, is not on home oxygen. Also reports history of CHF, on Lasix, states he has a little bit more shortness of breath when lying flat than usual. Lives at home. TRAVEL OUTSIDE OF THE [place] IN LAST 30 DAYS: No - Related Data Allergies/Adverse Reactions: bacitracin Allergy (Verified 08/02/17 14:38) shellfish derived Allergy (Verified 08/02/17 14:38) Past Medical History - Social History Chew tobacco use (# tins/day): No Frequency of alcohol use: None Drug Abuse: None - Past Medical History Cardiac Medical History: Reports: Hx Congestive Heart Failure, Hx Coronary Artery Disease, Hx DVT, Hx Hypertension, Hx Pulmonary Embolism Denies: Hx Heart Attack Pulmonary Medical History: Reports: Hx COPD, Hx Pneumonia, Hx Sleep Apnea Denies: Hx Asthma, Hx Bronchitis Neurological Medical History: Denies: Hx Cerebrovascular Accident, Hx Seizures Renal/ Medical History: Reports: Hx Benign Prostatic Hyperplasia, Hx End Stage Renal Disease - myglobinuria, rhabdomyolysis. 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, Reports Hx Gout, Reports Hx Musculoskeletal Deformity, Reports Hx Musculoskeletal Trauma Past Surgical History: Reports: Hx Bowel Surgery, Hx Cholecystectomy, Hx Colostomy - And revision, Hx Pacemaker, Hx Tonsillectomy, Other - Dialysis shunt and revision - Immunizations Immunizations up to date: Yes Hx Diphtheria, Pertussis, Tetanus Vaccination: Yes Physical Exam - Vital signs Vitals: Temp Pulse Resp BP Pulse Ox 99 F 69 16 142/64 H 99 04/09/18 17:26 04/09/18 17:26 04/09/18 17:26 04/09/18 17:26 04/09/18 17:26 - Respiratory Breath sounds: Other - Patient with frequent coughing episodes in triage, clear lung sounds throughout, no wheezing, rales, rhonchi noted. No respiratory distress. Course - Re-evaluation Re-evalutation: I have greeted and performed a rapid initial assessment of this patient. A comprehensive ED assessment and evaluation of the patient, analysis of test results and completion of the medical decision making process will be conducted by additional ED providers. - Vital Signs Vital signs: Temp Pulse Resp BP Pulse Ox 99 F 69 16 142/64 H 99 04/09/18 17:26 04/09/18 17:26 04/09/18 17:26 04/09/18 17:26 04/09/18 17:26 Doctor's Discharge - Discharge Referrals: DARYL MUSE PA [Primary Care Provider] - Follow up as needed
[2018-04-09 20:57] LABS: ABSOLUTE BASOPHILS # (AUTO) 0.1 10^3/uL (0.0-0.2); ABSOLUTE EOSINOPHILS # (AUTO) 0.3 10^3/uL (0.0-0.6); ABSOLUTE LYMPHOCYTES (AUTO) 2.2 10^3/uL (0.5-4.7); ABSOLUTE MONOCYTES (AUTO) 1.3 10^3/uL (0.1-1.4); ABSOLUTE NEUT (AUTO) 6.6 10^3/uL (1.7-8.2); BASOPHILS % (AUTO) 0.9 % (0-2); EOSINOPHILS % (AUTO) 2.7 % (0-6); HEMATOCRIT 42.4 % (37.9-51.0); HEMOGLOBIN 14.5 g/dL (13.5-17.0); LYMPHOCYTES % (AUTO) 20.7 % (13-45); MEAN CORPUSCULAR HEMOGLOBIN 32.7 pg (27.0-33.4); MEAN CORPUSCULAR HGB CONC 34.2 g/dL (32.0-36.0); MEAN CORPUSCULAR VOLUME 96 fl (80-97); MONOCYTES % (AUTO) 12.5 % (3-13); PLATELET COUNT 191 10^3/uL (150-450); RED BLOOD COUNT 4.43 10^6/uL (4.35-5.55); RED CELL DISTRIBUTION WIDTH 16.2 % (11.5-14.0); SEGMENTED NEUTROPHILS % (AUTO) 63.2 % (42-78); TOTAL CELLS COUNTED % (AUTO) 100 %; WHITE BLOOD COUNT 10.4 10^3/uL (4.0-10.5)
[2018-04-09 21:18] LABS: ALANINE AMINOTRANSFERASE 14 U/L (21-72); ALBUMIN 4.3 g/dL (3.5-5.0); ALKALINE PHOSPHATASE 81 U/L (38-126); ANION GAP 11 (5-19); ASPARTATE AMINO TRANSFERASE 25 U/L (17-59); BILIRUBIN,DIRECT 0.3 mg/dL (0.0-0.4); BILIRUBIN,TOTAL 1.3 mg/dL (0.2-1.3); BLOOD UREA NITROGEN 63 mg/dL (7-20); CALCIUM 9.7 mg/dL (8.4-10.2); CARBON DIOXIDE 31 mmol/L (22-30); CHLORIDE 101 mmol/L (98-107); GLUCOSE 111 mg/dL (75-110); POTASSIUM 3.7 mmol/L (3.6-5.0); SODIUM 142.5 mmol/L (137-145); TOTAL PROTEIN 7.8 g/dL (6.3-8.2)
[2018-04-09 21:28] LABS: TROPONIN I 0.023 ng/mL
[2018-04-09] MEDS ORDERED: BENZONATATE 100 MG CAPSULE PO ONE (21:32)
[2018-04-09] MEDS ORDERED: IPRATROPIUM/ALBUTEROL 0.5-2.5 MG/3 ML AMPUL NEB ONE (21:32)
--- NOTE | 2018-04-09 21:35 | ER Document Report ---
ED General - General Chief Complaint: Cough Stated Complaint: DIFFICULTY BREATHING Time Seen by Provider: 04/09/18 19:57 Mode of Arrival: Ambulatory Information source: Patient, Relative, [facility] Records Notes: 82-year-old male who with COPD, congestive heart failure, coronary artery disease, hypertension, atrial fibrillation (with pacemaker), end-stage renal disease presents with complaint of cough, nasal congestion. Patient states cough started 1 week prior to arrival he describes it as a persistent productive cough with yellow sputum. Patient states that earlier in the week he experienc ed sore throat, shortness of breath with coughing only. Patient is a former smoker and quit 43 years ago. He does not require oxygen or maintenance medications at home. Patient denies fever, chills, chest pain, back pain, abdominal pain, vomiting, diarrhea, dysuria. TRAVEL OUTSIDE OF THE [place] IN LAST 30 DAYS: No - HPI Onset: Last week Onset/Duration: Gradual, Persistent Quality of pain: No pain Associated symptoms: Body/muscle aches, Productive cough, Rhinnorhea, Sinus pain/drainage, Shortness of breath. denies: Chest pain, Chills, Diarrhea, Fever, Hurts to breath, Leg swelling, Nausea, Vomiting Exacerbated by: Denies Relieved by: Denies Similar symptoms previously: No Recently seen / treated by doctor: No - Related Data Allergies/Adverse Reactions: bacitracin Allergy (Verified 08/02/17 14:38) shellfish derived Allergy (Verified 08/02/17 14:38) Past Medical History - General Information source: Patient - Social History Smoking Status: Former Smoker Chew tobacco use (# tins/day): No Frequency of alcohol use: None Drug Abuse: None Lives with: Spouse/Significant other Family History: Reviewed & Not Pertinent Patient has suicidal ideation: No Patient has homicidal ideation: No - Past Medical History Cardiac Medical History: Reports: Hx Congestive Heart Failure, Hx Coronary Artery Disease, Hx DVT, Hx Hypertension, Hx Pulmonary Embolism Denies: Hx Heart Attack Pulmonary Medical History: Reports: Hx COPD, Hx Pneumonia, Hx Sleep Apnea Denies: Hx Asthma, Hx Bronchitis Neurological Medical History: Denies: Hx Cerebrovascular Accident, Hx Seizures Renal/ Medical History: Reports: Hx Benign Prostatic Hyperplasia, Hx End Stage Renal Disease - myglobinuria, rhabdomyolysis. 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 Denies recent illness. Denies weight loss, recent hospitalizations. EENT: Denies visual changes, eye pain. Denies , oral lesions, difficulty swallowing. CARDIOVASCULAR: Denies chest pain. Denies palpitations. Denies lower extremity edema. RESPIRATORY: Denies wheezing. + Cough, mild shortness of breath GASTROINTESTINAL: Denies abdominal pain or distention. Denies nausea, vomiting, or diarrhea. Denies blood in vomitus, stools, or per rectum. Denies black, tarry stools. Denies constipation. GENITOURINARY: Denies difficulty urinating, painful urination, frequency, blood in urine, testicular pain or penile discharge. MUSCULOSKELETAL: Denies back or neck pain or stiffness. Denies joint pain or swelling. SKIN: Denies rash, lesions or sores. HEMATOLOGIC : Denies easy bruising or bleeding. LYMPHATIC: Denies swollen glands. NEUROLOGICAL: Denies confusion or altered mental status. Denies loss of consciousness. Denies dizziness or lightheadedness. Denies headache. Denies weakness or paralysis. Denies problems difficulty with ambulation, slurred speech. Denies sensory loss, numbness, or tingling. Denies seizures. PSYCHIATRIC: Denies anxiety or stress. Denies depression, suicidal ideation, or Physical Exam - Vital signs Vitals: Temp Pulse Resp BP Pulse Ox 99 F 69 16 142/64 H 99 04/09/18 17:26 04/09/18 17:26 04/09/18 17:26 04/09/18 17:26 04/09/18 17:26 Interpretation: No: Hypoxic, Febrile - Notes Notes: PHYSICAL EXAMINATION: GENERAL: Well-appearing, well-nourished and in no acute distress. HEAD: Atraumatic, normocephalic. EYES: Pupils equal round and reactive to light, extraocular movements intact, sclera anicteric, conjunctiva are normal. ENT: Nares patent, oropharynx clear without exudates. Moist mucous membranes. NECK: Normal range of motion, supple without lymphadenopathy LUNGS: Breath sounds clear to auscultation bilaterally and equal. No wheezes rales or rhonchi. Persistent harsh cough, no accessory muscle use, no respiratory distress. HEART: Irregular rhythm with regular rate, no murmurs ABDOMEN: Soft, nontender, nondistended abdomen. No guarding, no rebound. No masses appreciated. Musculoskeletal: Normal range of motion, no pitting or edema. No cyanosis. NEUROLOGICAL: Cranial nerves grossly intact. Normal speech, normal gait. Normal sensory, motor exams PSYCH: Normal mood, normal affect. SKIN: Warm, Dry, normal turgor, no rashes or lesions noted. Course - Re-evaluation Re-evalutation: 04/10/18 00:18 Laboratory 04/09/18 04/09/18 04/09/18 20:40 20:40 20:40 WBC 10.4 RBC 4.43 Hgb 14.5 Hct 42.4 MCV 96 MCH 32.7 MCHC 34.2 RDW 16.2 H Plt Count 191 Seg Neutrophils % 63.2 Lymphocytes % 20.7 Monocytes % 12.5 Eosinophils % 2.7 Basophils % 0.9 Absolute Neutrophils 6.6 Absolute Lymphocytes 2.2 Absolute Monocytes 1.3 Absolute Eosinophils 0.3 Absolute Basophils 0.1 Sodium 142.5 Potassium 3.7 Chloride 101 Carbon Dioxide 31 H Anion Gap 11 BUN 63 H Creatinine 2.71 H Est GFR ( Amer) 28 L Est GFR (Non-Af Amer) 23 L Glucose 111 H Calcium 9.7 Total Bilirubin 1.3 Direct Bilirubin 0.3 Neonat Total Bilirubin Not Reportable Neonat Direct Bilirubin Not Reportable Neonat Indirect Bili Not Reportable AST 25 ALT 14 L Alkaline Phosphatase 81 Troponin I 0.023 NT-Pro-B Natriuret Pep 1140 H Total Protein 7.8 Albumin 4.3 Chest X-Ray 04/09/18 19:01 IMPRESSION: NO ACUTE RADIOGRAPHIC FINDING IN THE CHEST. Presentation is most consistent with a viral upper respiratory infection. Patient is overall well appearance, vitals within normal limits, well-hydrated. Patient denies any headache, neck pain, and has no evidence of meningismus on examination. Lungs are clear bilaterally. No evidence of respiratory distress. Based on clinical exam and history, I do not suspect an acute pneumonia, meningitis, strep pharyngitis, or an acute encephalitis. CBC is without leukocytosis or anemia. CMP unremarkable. Chest x-ray shows no evidence of pneumonia. Patient did receive a DuoNeb and coughing has improved. Patient has an albuterol MDI at home but states that he did not want to use it because he did not want to cover up the cough. Will discharge patient with return pre cautions and followup recommendations. They are in agreement this plan have verbalized understanding return precautions. Patient was evaluated and treated as appropriate for the patient's presenting symptoms and complaint, with consideration of any critical or life threatening conditions that may be associated with their obtained history and exam as noted above. All results were discussed with patient . Prescriptions for prednisone, Tessalon Perles were provided. Patient provided the opportunity to ask questions, and express concerns. Patient was educated on treatments based on their presumed diagnosis as noted above. At this time we will discharge the patient with return precautions and follow-up recommendations. Verbal discharge instructions given a the bedside. Medication warnings reviewed. Patient is in agreement with this plan and has verbalized understanding of return precautions. After careful consideration I feel that that patient can be safely discharged from the emergency department, they were advised to followup with a primary care physician in 2-3 days. Dictation on this chart was performed using voice recognition software and may result in unintended grammatical, spelling, syntax or errors. - Vital Signs Vital signs: Temp Pulse Resp BP Pulse Ox 99 F 69 14 134/72 H 98 04/09/18 17:26 04/09/18 17:26 04/09/18 23:07 04/09/18 23:07 04/09/18 23:07 - Laboratory Result Diagrams: 04/09/18 20:40 04/09/18 20:40 Laboratory results interpreted by me: 04/09/18 04/09/18 04/09/18 20:40 20:40 20:40 RDW 16.2 H Carbon Dioxide 31 H BUN 63 H Creatinine 2.71 H Est GFR ( Amer) 28 L Est GFR (Non-Af Amer) 23 L Glucose 111 H ALT 14 L NT-Pro-B Natriuret Pep 1140 H - Diagnostic Test Radiology reviewed: Image reviewed, Reports reviewed Discharge - Discharge Clinical Impression: COPD exacerbation, Cough, Nasal congestion URI (upper respiratory infection) Qualifiers: URI type: unspecified URI Qualified Code(s): J06.9 - Acute upper respiratory infection, unspecified Condition: Good Disposition: HOME, SELF-CARE Instructions: Chronic Obstructive Lung Disease ([facility]), Upper Respiratory Illness ([facility]), Viral Syndrome ([facility]) Additional Instructions: You were seen for symptoms most consistent with bronchitis. This can take up to 12 weeks to fully resolve. This is generally due to a viral infection. Please follow-up with your primary doctor in the next 2-3 days. Return if you develop w orsening cough, vomiting, fever >100.4, pass out, begin coughing blood, or have any other symptoms that are concerning to you. Please use the medications prescribed today as directed. Prescriptions: Benzonatate [Tessalon Perle 100 mg Capsule] 200 mg PO Q8HP PRN #40 cap PRN Reason: Azithromycin [Zithromax 250 mg Tablet] 250 mg PO ASDIR PRN #6 tablet PRN Reason: RX: Prednisone [Deltasone 20 mg Tablet] 2 tab PO DAILY 5 Days #10 tablet Forms: Elevated Blood Pressure Referrals: DARYL MUSE PA [Primary Care Provider] - Follow up as needed
[2018-04-09 23:10] VITALS: BP 134/72
--- NOTE | 2018-04-10 14:59 | EKG REPORT ---
SEVERITY:- ABNORMAL ECG - AFIB/FLUT AND V-PACED COMPLEXES : Confirmed by: Zara Kaplan 10-Apr-2018 14:58:22
== END 2018-04-09 23:10 | disposition home or self-care (01) ==
LOC: ER 17:19
DX: J44.1 Chronic obstructive pulmonary disease with (acute) exacerbation (principal); J06.9 Acute upper respiratory infection, unspecified; R05 Cough; R09.81 Nasal congestion
CPT/HCPCS: 93005; 94640; 99285; 36415; 85025; 80053; 84484; 83880; 71045; 93010; J7620

== ENCOUNTER → 2018-06-03 | Outpatient (CLI) | payer OTHER, MEDICARE ==
[2018-06-03 15:26] LABS: ABSOLUTE BASOPHILS # (AUTO) 0.1 10^3/uL (0.0-0.2); ABSOLUTE EOSINOPHILS # (AUTO) 0.2 10^3/uL (0.0-0.6); ABSOLUTE LYMPHOCYTES (AUTO) 1.9 10^3/uL (0.5-4.7); ABSOLUTE MONOCYTES (AUTO) 0.7 10^3/uL (0.1-1.4); ABSOLUTE NEUT (AUTO) 3.5 10^3/uL (1.7-8.2); EOSINOPHILS % (AUTO) 3.7 % (0-6); HEMOGLOBIN 12.9 g/dL (13.5-17.0); LYMPHOCYTES % (AUTO) 29.1 % (13-45); MEAN CORPUSCULAR HGB CONC 33.2 g/dL (32.0-36.0); MEAN CORPUSCULAR VOLUME 97 fl (80-97); MONOCYTES % (AUTO) 11.7 % (3-13); PLATELET COUNT 167 10^3/uL (150-450); RED BLOOD COUNT 4.04 10^6/uL (4.35-5.55); RED CELL DISTRIBUTION WIDTH 15.3 % (11.5-14.0); SEGMENTED NEUTROPHILS % (AUTO) 54.5 % (42-78); TOTAL CELLS COUNTED % (AUTO) 100 %; WHITE BLOOD COUNT 6.4 10^3/uL (4.0-10.5)
[2018-06-03 15:38] LABS: APPEARANCE,URINE CLEAR; BILIRUBIN,URINE NEGATIVE (NEGATIVE); COLOR,URINE YELLOW; GLUCOSE, URINE NEGATIVE (NEGATIVE); KETONES,URINE NEGATIVE (NEGATIVE); LEUKOCYTE ESTERASE,URINE NEGATIVE (NEGATIVE); NITRITE,URINE NEGATIVE (NEGATIVE); PROTEIN,URINE NEGATIVE (NEGATIVE); UROBILINOGEN,URINE NEGATIVE mg/dL (<2.0)
[2018-06-03 15:58] LABS: ALANINE AMINOTRANSFERASE 21 U/L (21-72); ALBUMIN 4.2 g/dL (3.5-5.0); ALKALINE PHOSPHATASE 75 U/L (38-126); ANION GAP 11 (5-19); ASPARTATE AMINO TRANSFERASE 24 U/L (17-59); BILIRUBIN,DIRECT 0.2 mg/dL (0.0-0.4); BILIRUBIN,TOTAL 1.2 mg/dL (0.2-1.3); BLOOD UREA NITROGEN 43 mg/dL (7-20); CALCIUM 9.9 mg/dL (8.4-10.2); CARBON DIOXIDE 29 mmol/L (22-30); CHLORIDE 102 mmol/L (98-107); GLUCOSE 101 mg/dL (75-110); IRON(TIBC) 75.7 ug/dL (49-181); PHOSPHORUS 4.5 mg/dL (2.5-4.5); POTASSIUM 3.9 mmol/L (3.6-5.0); SODIUM 141.9 mmol/L (137-145)
[2018-06-03 16:11] LABS: UR PRO/CREAT RATIO RESULT 0.3 mg/mg (0.0-0.2); URINE PROTEIN 29.6 mg/dL (<12)
[2018-06-05 15:37] LABS: A/G RATIO 1.4 (0.7-1.7); ALPHA-2-GLOBULIN 2 0.7 g/dL (0.4-1.0); GAMMA GLOBULIN 1.1 g/dL (0.4-1.8); GLOBULIN TOTAL 2.9 g/dL (2.2-3.9); MONOCLONAL SPIKE Not Observed g/dL (Not Observ); PROTEIN TOTAL SERUM 6.9 g/dL (6.0-8.5)
== END ==
LOC: OD 14:35
PROVIDERS: ATTEND Internal Medicine Nephrology
DX: N18.9 Chronic kidney disease, unspecified (principal); D64.9 Anemia, unspecified
CPT/HCPCS: 36415; 80053; 81001; 82570; 82728; 83540; 83550; 83735; 83970; 84100; 84156; 84165; 84443; 85025

== ENCOUNTER → 2018-08-06 | Outpatient (CLI) | payer MEDICARE, OTHER ==
[2018-08-06 11:26] LABS: HEMOGLOBIN 12.5 g/dL (13.5-17.0); MEAN CORPUSCULAR HEMOGLOBIN 32.6 pg (27.0-33.4); MEAN CORPUSCULAR HGB CONC 33.8 g/dL (32.0-36.0); MEAN CORPUSCULAR VOLUME 97 fl (80-97); PLATELET COUNT 143 10^3/uL (150-450); RED BLOOD COUNT 3.84 10^6/uL (4.35-5.55); RED CELL DISTRIBUTION WIDTH 14.8 % (11.5-14.0); WHITE BLOOD COUNT 6.4 10^3/uL (4.0-10.5)
[2018-08-06 11:54] LABS: ANION GAP 10 (5-19); BLOOD UREA NITROGEN 49 mg/dL (7-20); CALCIUM 9.7 mg/dL (8.4-10.2); CARBON DIOXIDE 28 mmol/L (22-30); CHLORIDE 103 mmol/L (98-107); GLUCOSE 94 mg/dL (75-110); PHOSPHORUS 4.1 mg/dL (2.5-4.5); POTASSIUM 4.6 mmol/L (3.6-5.0); SODIUM 141.1 mmol/L (137-145)
== END ==
LOC: OD 10:38
PROVIDERS: ATTEND Internal Medicine Nephrology
DX: I12.9 Hypertensive chronic kidney disease with stage 1 through stage 4 chronic kidney disease, or unspecified chronic kidney disease (principal); N18.4 Chronic kidney disease, stage 4 (severe)
CPT/HCPCS: 36415; 80048; 83735; 83970; 84100; 85027

== ENCOUNTER → 2019-01-18 | Outpatient (CLI) | payer OTHER, MEDICARE ==
[2019-01-18 11:31] LABS: HEMATOCRIT 39.2 % (37.9-51.0); HEMOGLOBIN 12.9 g/dL (13.5-17.0); MEAN CORPUSCULAR HEMOGLOBIN 31.9 pg (27.0-33.4); MEAN CORPUSCULAR VOLUME 96 fl (80-97); PLATELET COUNT 148 10^3/uL (150-450); RED BLOOD COUNT 4.06 10^6/uL (4.35-5.55); RED CELL DISTRIBUTION WIDTH 15.8 % (11.5-14.0); WHITE BLOOD COUNT 8.3 10^3/uL (4.0-10.5)
[2019-01-18 11:48] LABS: APPEARANCE,URINE CLEAR; BILIRUBIN,URINE NEGATIVE (NEGATIVE); COLOR,URINE STRAW; GLUCOSE, URINE NEGATIVE (NEGATIVE); KETONES,URINE NEGATIVE (NEGATIVE); LEUKOCYTE ESTERASE,URINE NEGATIVE (NEGATIVE); NITRITE,URINE NEGATIVE (NEGATIVE); PROTEIN,URINE NEGATIVE (NEGATIVE); URINE SPECIFIC GRAVITY 1.009; UROBILINOGEN,URINE NEGATIVE mg/dL (<2.0)
[2019-01-18 12:10] LABS: ANION GAP 12 (5-19); BLOOD UREA NITROGEN 86 mg/dL (7-20); CALCIUM 8.7 mg/dL (8.4-10.2); CARBON DIOXIDE 23 mmol/L (22-30); CHLORIDE 103 mmol/L (98-107); GLUCOSE 145 mg/dL (75-110); PHOSPHORUS 3.7 mg/dL (2.5-4.5); POTASSIUM 4.1 mmol/L (3.6-5.0); URIC ACID 5.7 mg/dL (3.5-8.5)
== END ==
LOC: OD 11:04
PROVIDERS: ATTEND Internal Medicine Nephrology
DX: I13.0 Hypertensive heart and chronic kidney disease with heart failure and stage 1 through stage 4 chronic kidney disease, or unspecified chronic kidney disease (principal); I50.9 Heart failure, unspecified; N18.4 Chronic kidney disease, stage 4 (severe); R80.9 Proteinuria, unspecified; E11.22 Type 2 diabetes mellitus with diabetic chronic kidney disease
CPT/HCPCS: 36415; 80048; 81001; 83735; 83970; 84100; 84550; 85027

== ENCOUNTER → 2019-02-25 | Outpatient (CLI) | payer MEDICARE, OTHER ==
[2019-02-25 13:41] LABS: ABSOLUTE EOSINOPHILS # (AUTO) 0.1 10^3/uL (0.0-0.6); ABSOLUTE MONOCYTES (AUTO) 0.9 10^3/uL (0.1-1.4); ABSOLUTE NEUT (AUTO) 3.4 10^3/uL (1.7-8.2); BASOPHILS % (AUTO) 0.5 % (0-2); HEMATOCRIT 40.9 % (37.9-51.0); HEMOGLOBIN 13.6 g/dL (13.5-17.0); LYMPHOCYTES % (AUTO) 30.6 % (13-45); MEAN CORPUSCULAR HEMOGLOBIN 32.1 pg (27.0-33.4); MEAN CORPUSCULAR HGB CONC 33.2 g/dL (32.0-36.0); MEAN CORPUSCULAR VOLUME 97 fl (80-97); PLATELET COUNT 149 10^3/uL (150-450); RED BLOOD COUNT 4.23 10^6/uL (4.35-5.55); RED CELL DISTRIBUTION WIDTH 15.5 % (11.5-14.0); SEGMENTED NEUTROPHILS % (AUTO) 52.9 % (42-78); TOTAL CELLS COUNTED % (AUTO) 100 %; WHITE BLOOD COUNT 6.4 10^3/uL (4.0-10.5)
[2019-02-25 14:01] LABS: ANION GAP 9 (5-19); BLOOD UREA NITROGEN 43 mg/dL (7-20); CALCIUM 9.5 mg/dL (8.4-10.2); CARBON DIOXIDE 30 mmol/L (22-30); CHLORIDE 100 mmol/L (98-107); GLUCOSE 86 mg/dL (75-110); POTASSIUM 4.8 mmol/L (3.6-5.0)
== END ==
LOC: OD 12:45
PROVIDERS: ATTEND Internal Medicine Nephrology
DX: I13.0 Hypertensive heart and chronic kidney disease with heart failure and stage 1 through stage 4 chronic kidney disease, or unspecified chronic kidney disease (principal); I50.9 Heart failure, unspecified; N18.4 Chronic kidney disease, stage 4 (severe); N25.0 Renal osteodystrophy; R60.9 Edema, unspecified
CPT/HCPCS: 36415; 80048; 83970; 84100; 85025

== ENCOUNTER → 2019-04-15 | Outpatient (CLI) | payer MEDICARE, OTHER ==
[2019-04-15 11:05] LABS: ABSOLUTE EOSINOPHILS # (AUTO) 0.3 10^3/uL (0.0-0.6); ABSOLUTE LYMPHOCYTES (AUTO) 1.3 10^3/uL (0.5-4.7); ABSOLUTE MONOCYTES (AUTO) 0.7 10^3/uL (0.1-1.4); ABSOLUTE NEUT (AUTO) 3.3 10^3/uL (1.7-8.2); BASOPHILS % (AUTO) 0.5 % (0-2); EOSINOPHILS % (AUTO) 4.9 % (0-6); HEMATOCRIT 39.6 % (37.9-51.0); HEMOGLOBIN 13.5 g/dL (13.5-17.0); LYMPHOCYTES % (AUTO) 23.2 % (13-45); MEAN CORPUSCULAR HEMOGLOBIN 32.5 pg (27.0-33.4); MEAN CORPUSCULAR VOLUME 95 fl (80-97); MONOCYTES % (AUTO) 12.5 % (3-13); PLATELET COUNT 164 10^3/uL (150-450); RED BLOOD COUNT 4.15 10^6/uL (4.35-5.55); RED CELL DISTRIBUTION WIDTH 15.2 % (11.5-14.0); SEGMENTED NEUTROPHILS % (AUTO) 58.9 % (42-78); TOTAL CELLS COUNTED % (AUTO) 100 %; WHITE BLOOD COUNT 5.6 10^3/uL (4.0-10.5)
[2019-04-15 11:27] LABS: ANION GAP 10 (5-19); BLOOD UREA NITROGEN 39 mg/dL (7-20); CALCIUM 9.4 mg/dL (8.4-10.2); CARBON DIOXIDE 28 mmol/L (22-30); CHLORIDE 102 mmol/L (98-107); GLUCOSE 94 mg/dL (75-110); PHOSPHORUS 3.8 mg/dL (2.5-4.5); POTASSIUM 5.1 mmol/L (3.6-5.0)
== END ==
LOC: OD 10:28
PROVIDERS: ATTEND Internal Medicine Nephrology
DX: I13.0 Hypertensive heart and chronic kidney disease with heart failure and stage 1 through stage 4 chronic kidney disease, or unspecified chronic kidney disease (principal); I50.9 Heart failure, unspecified; N18.4 Chronic kidney disease, stage 4 (severe); N25.0 Renal osteodystrophy; R60.9 Edema, unspecified
CPT/HCPCS: 36415; 80048; 83970; 84100; 85025

== ENCOUNTER → 2019-06-10 | Outpatient (CLI) | payer MEDICARE, OTHER ==
[2019-06-10 14:20] LABS: ABSOLUTE BASOPHILS # (AUTO) 0.1 10^3/uL (0.0-0.2); ABSOLUTE EOSINOPHILS # (AUTO) 0.3 10^3/uL (0.0-0.6); ABSOLUTE LYMPHOCYTES (AUTO) 1.7 10^3/uL (0.5-4.7); ABSOLUTE MONOCYTES (AUTO) 0.7 10^3/uL (0.1-1.4); ABSOLUTE NEUT (AUTO) 3.9 10^3/uL (1.7-8.2); BASOPHILS % (AUTO) 0.9 % (0-2); EOSINOPHILS % (AUTO) 4.3 % (0-6); HEMATOCRIT 39.1 % (37.9-51.0); HEMOGLOBIN 13.3 g/dL (13.5-17.0); LYMPHOCYTES % (AUTO) 25.4 % (13-45); MEAN CORPUSCULAR HEMOGLOBIN 32.5 pg (27.0-33.4); MEAN CORPUSCULAR VOLUME 96 fl (80-97); MONOCYTES % (AUTO) 10.5 % (3-13); PLATELET COUNT 173 10^3/uL (150-450); RED BLOOD COUNT 4.09 10^6/uL (4.35-5.55); RED CELL DISTRIBUTION WIDTH 15.1 % (11.5-14.0); SEGMENTED NEUTROPHILS % (AUTO) 58.9 % (42-78); TOTAL CELLS COUNTED % (AUTO) 100 %; WHITE BLOOD COUNT 6.5 10^3/uL (4.0-10.5)
[2019-06-10 14:38] LABS: ALBUMIN 3.9 g/dL (3.5-5.0); ALKALINE PHOSPHATASE 74 U/L (38-126); ANION GAP 10 (5-19); ASPARTATE AMINO TRANSFERASE 31 U/L (17-59); BILIRUBIN,DIRECT 0.3 mg/dL (0.0-0.4); BILIRUBIN,TOTAL 0.9 mg/dL (0.2-1.3); BLOOD UREA NITROGEN 71 mg/dL (7-20); CALCIUM 9.4 mg/dL (8.4-10.2); CARBON DIOXIDE 32 mmol/L (22-30); CHLORIDE 97 mmol/L (98-107); GLUCOSE 130 mg/dL (75-110); PHOSPHORUS 2.9 mg/dL (2.5-4.5); POTASSIUM 4.1 mmol/L (3.6-5.0); TOTAL PROTEIN 7.5 g/dL (6.3-8.2)
== END ==
LOC: OD 13:57
PROVIDERS: ATTEND Internal Medicine Nephrology
DX: I13.0 Hypertensive heart and chronic kidney disease with heart failure and stage 1 through stage 4 chronic kidney disease, or unspecified chronic kidney disease (principal); I50.9 Heart failure, unspecified; N18.4 Chronic kidney disease, stage 4 (severe); N25.0 Renal osteodystrophy; R80.9 Proteinuria, unspecified
CPT/HCPCS: 36415; 80053; 83735; 83970; 84100; 85025

== ENCOUNTER → 2019-07-07 | Outpatient (CLI) | payer MEDICARE, OTHER ==
[2019-07-07 12:13] LABS: ABSOLUTE EOSINOPHILS # (AUTO) 0.1 10^3/uL (0.0-0.6); ABSOLUTE LYMPHOCYTES (AUTO) 1.6 10^3/uL (0.5-4.7); ABSOLUTE MONOCYTES (AUTO) 0.7 10^3/uL (0.1-1.4); BASOPHILS % (AUTO) 0.5 % (0-2); EOSINOPHILS % (AUTO) 2.6 % (0-6); HEMATOCRIT 39.5 % (37.9-51.0); HEMOGLOBIN 13.3 g/dL (13.5-17.0); MEAN CORPUSCULAR HEMOGLOBIN 32.9 pg (27.0-33.4); MEAN CORPUSCULAR HGB CONC 33.8 g/dL (32.0-36.0); MEAN CORPUSCULAR VOLUME 97 fl (80-97); MONOCYTES % (AUTO) 12.5 % (3-13); PLATELET COUNT 142 10^3/uL (150-450); RED BLOOD COUNT 4.06 10^6/uL (4.35-5.55); RED CELL DISTRIBUTION WIDTH 15.5 % (11.5-14.0); SEGMENTED NEUTROPHILS % (AUTO) 55.4 % (42-78); TOTAL CELLS COUNTED % (AUTO) 100 %; WHITE BLOOD COUNT 5.4 10^3/uL (4.0-10.5)
[2019-07-07 12:35] LABS: ANION GAP 7 (5-19); BLOOD UREA NITROGEN 46 mg/dL (7-20); CALCIUM 9.8 mg/dL (8.4-10.2); CARBON DIOXIDE 31 mmol/L (22-30); CHLORIDE 101 mmol/L (98-107); GLUCOSE 92 mg/dL (75-110); POTASSIUM 4.3 mmol/L (3.6-5.0)
== END ==
LOC: OD 11:20
PROVIDERS: ATTEND Internal Medicine Nephrology
DX: I13.0 Hypertensive heart and chronic kidney disease with heart failure and stage 1 through stage 4 chronic kidney disease, or unspecified chronic kidney disease (principal); I50.9 Heart failure, unspecified; N18.4 Chronic kidney disease, stage 4 (severe); N25.0 Renal osteodystrophy; R80.9 Proteinuria, unspecified
CPT/HCPCS: 36415; 80048; 83735; 85025

== ENCOUNTER 2019-09-08 15:55 | Emergency (ER) | payer OTHER, MEDICARE ==
--- NOTE | 2019-09-08 16:48 | ER Document Report ---
ED Respiratory Problem - General Chief Complaint: Shortness Of Breath Stated Complaint: SHORTNESS OF BREATH Time Seen by Provider: 09/08/19 16:20 Primary Care Provider: LULÚ DORAN MD [ACTIVE STAFF] - Follow up as needed Notes: 83-year-old man presents to the emergency department with a history of being treated for pneumonia as an outpatient. States that he is taken multiple courses of antibiotics and his chest x-ray has not improved. He was sent to the emergency department from the outpatient clinic for a CT of the chest. He denies a productive cough or fever. He has some atypical chest discomfort invo lving the left chest area. History of atrial fibrillation with a pacemaker, CHF, renal insufficiency. He states that his kidneys are about 40% normal. TRAVEL OUTSIDE OF THE [place] IN LAST 30 DAYS: No - Related Data Allergies/Adverse Reactions: bacitracin Allergy (Verified 09/08/19 16:12) shellfish derived Allergy (Verified 09/08/19 16:12) Past Medical History - Social History Smoking Status: Former Smoker Chew tobacco use (# tins/day): No Frequency of alcohol use: None Drug Abuse: None Family History: Reviewed & Not Pertinent Patient has homicidal ideation: No - Past Medical History Cardiac Medical History: Reports: Hx Congestive Heart Failure, Hx Coronary Artery Disease, Hx DVT, Hx Hypertension, Hx Pulmonary Embolism Denies: Hx Heart Attack Pulmonary Medical History: Reports: Hx COPD, Hx Pneumonia, Hx Sleep Apnea Denies: Hx Asthma, Hx Bronchitis Neurological Medical History: Denies: Hx Cerebrovascular Accident, Hx Seizures Renal/ Medical History: Reports: Hx Benign Prostatic Hyperplasia, Hx End Stage Renal Disease - myglobinuria, rhabdomyolysis. 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 HENT: Negative for sore throat. Eyes: Negative for visual changes. Cardiovascular: + chest pain. Respiratory :+shortness of breath. Gastrointestinal: Negative for abdominal pain, vomiting or diarrhea. Genitourinary: Negative for dysuria. Musculoskeletal: Negative for back pain. Skin: Negative for rash. Neurological: Negative for headaches, weakness or numbness. 10 point ROS negative except as marked above and in HPI. Physical Exam - Vital signs Vitals: Temp 98.5 F 09/08/19 16:13 - Notes Notes: PHYSICAL EXAMINATION: Physical Exam: General: Well-nourished well-developed 83 yo male in no acute distress HEENT: NC/AT, pupils equal round and reactive to light, MM moist,nares clear, oropharynx clear, airway patent Neck: supple, no adenopathy, no masses. Good range of motion Lungs: clear, no wheezing, no rales no rhonchi CVS: Regular rate and rhythm no murmur gallop or rub Abdomen: Soft, active, nontender, no masses, no hepatosplenomegaly Ext: 2+ edema bilateral lower extremities Neuro: Alert and responsive, moving all 4 extremities on command, cranial nerves intact, no focal findings Skin: Intact no open lesions, no rash PSYCH: Normal mood, normal affect. Course - Re-evaluation Re-evalutation: 09/08/19 18:49 I have reviewed this chest x-ray, CT scan and laboratory data. Patient's CT is essentially negative for acute findings x-ray is also negative he has an elevated BNP patient was consistent with CHF, atrial fib/flutter, and a nondiagnostic elevated troponin I. I discussed these findings with the patient and explained that we will repeat the troponin. If that number is increasing or is significantly elevated we will have to transfer you to another hospital. The patient states he understands and presently is in no acute distress. 09/08/19 20:09 Repeat troponin was performed and there is no interval change in the value. Patient is in no respiratory distress and is presently on Lasix twice a day. He is being discharged home to continue his outpatient management and to follow-up with his physician with regards to the unremarkable CT scan. - Vital Signs Vital signs: Temp Pulse Resp BP Pulse Ox 98.1 F 59 L 16 150/68 H 95 09/08/19 17:52 09/08/19 17:52 09/08/19 17:52 09/08/19 17:52 05/27/20 17:52 - Laboratory Result Diagrams: 09/08/19 16:30 09/08/19 16:30 Laboratory results interpreted by me: 09/08/19 09/08/19 09/08/19 16:30 16:30 16:30 RBC 4.05 L Hgb 13.3 L MCV 98 H RDW 15.3 H Plt Count 134 L Chloride 97 L Carbon Dioxide 33 H BUN 55 H Creatinine 2.58 H Est GFR ( Amer) 29 L Est GFR (MDRD) Non-Af 24 L Glucose 123 H NT-Pro-B Natriuret Pep 1930 H Urine Protein Urine Ascorbic Acid 09/08/19 18:18 RBC Hgb MCV RDW Plt Count Chloride Carbon Dioxide BUN Creatinine Est GFR ( Amer) Est GFR (MDRD) Non-Af Glucose NT-Pro-B Natriuret Pep Urine Protein 30 H Urine Ascorbic Acid 40 H I have reviewed laboratory data and used this information for the treatment decisions regarding the patient. - Diagnostic Test Radiology reviewed: Image reviewed, Reports reviewed - Chest x-ray: No acute cardiopulmonary findings, mild cardiomegaly. CT chest noncontrast: No acute intrapulmonary/chest findings. Discharge - Discharge Clinical Impression: Chronic kidney disease (CKD), stage IV (severe) Chronic congestive heart failure Qualifiers: Heart failure type: unspecified Qualified Code(s): I50.9 - Heart failure, unspecified Condition: Good Disposition: HOME, SELF-CARE Instructions: Congestive Heart Failure ([facility]) Additional Instructions: You are seen in the emergency department today and a CT scan of your chest was performed which does not reveal pneumonia or other acute findings. Please follow-up with your primary care physician regarding the CT finding. Also, please follow up with the emergency department if your symptoms are worsening or if you have other concerns. HOME CARE INSTRUCTIONS & INFORMATION: Thank you for choosing us for your medical needs. We hope you're satisfied with the care you received. After you l eave, you must properly care for your problem and, at the same time, observe its progress. Any condition can change. Some illnesses can change rapidly over hours or days. If your condition worsens, return to the Emergency Department or see your physician promptly. ABOUT YOUR X-RAYS AND EKG'S: If you had an EKG or X-rays taken, they have been read by the Emergency Physician. The X-rays and EKG's will also be read by a Radiologist or Enterprise Resource Planner within 24 hours. If discrepancies are noted, you will be notified by telephone. Please be certain the ED has a correct telephone number & address where you can be reached. Also, realize that some fractures or abnormalities do not show up on initial X-rays. If your symptoms continue, see your physician. ABOUT YOUR LABORATORY TEST: If you had laboratory tests, the results have been reviewed by the Emergency Physician. Some test results (for example cultures) may not be available for several days. You will be contacted if any test result shows you need additional treatment. Please be certain the ED has a correct telephone number and address where you can be reached. ABOUT YOUR MEDICATIONS: You will receive instructions on how to take your medicine on the prescription label you receive. Additional information may be provided by the Pharmacy. If you have questions afterwards, call the ED for clarification or further instructions. Some prescribed medications may cause drowsiness. Do not perform tasks such as driving a car or operating machinery without consulting your Pharmacist. If you feel you need a refill of pain medication, your condition will need re-evaluation. Please do not call for a refill of any medication. ABOUT YOUR SIGNATURE: Signature of this document acknowledges to followin. Understanding that you received emergency treatment and that you may be released before al medical problems are known or treated. Please be certain the ED has a correct phone number & address where you can be reached. 2. Acknowledgement that you will arrange for follow-up care as recommended. 3. Authorization for the Emergency Physician to provide information to your follow-up Physician in order to maximize your care. AT ANY TIME, IF YOUR SYMPTOMS CHANGE SIGNIFICANTLY OR WORSEN OR YOU DEVELOP NEW SYMPTOMS, RETURN TO THE EMERGENCY DEPARTMENT IMMEDIATELY FOR RE-EVALUATION. OUR GOAL IS TO PROVIDE EXCELLENT MEDICAL CARE! WE HOPE THAT WE HAVE MET YOUR EXPECTATIONS DURING YOUR EMERGENCY DEPARTMENT VISI T AND THAT YOU FEEL YOU HAVE RECEIVED EXCELLENT CARE! Referrals: LULÚ DORAN MD [ACTIVE STAFF] - Follow up as needed
[2019-09-08 16:57] LABS: ABSOLUTE EOSINOPHILS # (AUTO) 0.1 10^3/uL (0.0-0.6); ABSOLUTE LYMPHOCYTES (AUTO) 1.4 10^3/uL (0.5-4.7); ABSOLUTE MONOCYTES (AUTO) 0.7 10^3/uL (0.1-1.4); ABSOLUTE NEUT (AUTO) 4.4 10^3/uL (1.7-8.2); BASOPHILS % (AUTO) 0.5 % (0-2); EOSINOPHILS % (AUTO) 1.8 % (0-6); HEMATOCRIT 39.7 % (37.9-51.0); HEMOGLOBIN 13.3 g/dL (13.5-17.0); LYMPHOCYTES % (AUTO) 20.9 % (13-45); MEAN CORPUSCULAR HEMOGLOBIN 32.8 pg (27.0-33.4); MEAN CORPUSCULAR HGB CONC 33.4 g/dL (32.0-36.0); MEAN CORPUSCULAR VOLUME 98 fl (80-97); MONOCYTES % (AUTO) 10.1 % (3-13); PLATELET COUNT 134 10^3/uL (150-450); RED BLOOD COUNT 4.05 10^6/uL (4.35-5.55); RED CELL DISTRIBUTION WIDTH 15.3 % (11.5-14.0); SEGMENTED NEUTROPHILS % (AUTO) 66.7 % (42-78); TOTAL CELLS COUNTED % (AUTO) 100 %; WHITE BLOOD COUNT 6.5 10^3/uL (4.0-10.5)
--- NOTE | 2019-09-08 16:59 | RADIOLOGY REPORT (SQ) ---
EXAM DESCRIPTION: CHEST SINGLE VIEW IMAGES COMPLETED DATE/TIME: 09/08/2019 3:41 pm REASON FOR STUDY: shortness of breath COMPARISON: 04/09/2018 EXAM PARAMETERS: NUMBER OF VIEWS: One view. TECHNIQUE: Single frontal radiographic view of the chest acquired. RADIATION DOSE: NA LIMITATIONS: None. FINDINGS: LUNGS AND PLEURA: No opacities, masses or pneumothorax. No pleural effusion. MEDIASTINUM AND HILAR STRUCTURES: No masses. Contour normal. HEART AND VASCULAR STRUCTURES: Heart normal in size. Normal vasculature. BONES: No acute findings. HARDWARE: Left infraclavicular pacemaker with intact lead wires unchanged. OTHER: No other significant finding. IMPRESSION: NO ACUTE RADIOGRAPHIC FINDING IN THE CHEST. TECHNICAL DOCUMENTATION: JOB ID: [id number] 2010 [employer]- All Rights Reserved Reading location - IP/workstation name: [email or web address]
[2019-09-08 17:16] LABS: ALBUMIN 3.6 g/dL (3.5-5.0); ALKALINE PHOSPHATASE 68 U/L (38-126); ANION GAP 8 (5-19); ASPARTATE AMINO TRANSFERASE 22 U/L (17-59); BLOOD UREA NITROGEN 55 mg/dL (7-20); CARBON DIOXIDE 33 mmol/L (22-30); CHLORIDE 97 mmol/L (98-107); GLUCOSE 123 mg/dL (75-110); POTASSIUM 4.2 mmol/L (3.6-5.0); TOTAL PROTEIN 6.6 g/dL (6.3-8.2)
--- NOTE | 2019-09-08 17:24 | RADIOLOGY REPORT (SQ) ---
EXAM DESCRIPTION: CT CHEST WITHOUT IMAGES COMPLETED DATE/TIME: 09/08/2019 4:56 pm REASON FOR STUDY: Abnormal chest x-ray COMPARISON: Chest x-ray 09/08/2019 TECHNIQUE: CT scan performed of the chest without intravenous contrast. Images reviewed with lung, soft tissue and bone windows. Reconstructed coronal and sagittal MPR images reviewed. All images st ored on PACS. All CT scanners at this facility use dose modulation, iterative reconstruction, and/or weight based d osing when appropriate to reduce radiation dose to as low as reasonably achievable (ALARA). [facility]: Dose Right [facility]: CareDose [facility]: Dose Right [facility]: Teradose 4D [facility]: [employer] RADIATION DOSE: CT Rad equipment meets quality standard of care and radiation dose reduction techniq ues were employed. CTDIvol: 19.7 mGy. DLP: 813 mGy-cm. mGy. LIMITATIONS: No technical limitations. FINDINGS: LUNGS AND PLEURA: No infiltrate, effusion, or mass. HILAR AND MEDIASTINAL STRUCTURES: No identified masses or abnormal nodes. No obvious aneurysm. HEART AND VASCULAR STRUCTURES: No aneurysm. No pericardial effusion. UPPER ABDOMEN: No significant findings. Limited exam. THYROID AND OTHER SOFT TISSUES: No masses. No adenopathy. BONES: No significant finding. HARDWARE: Pacemaker. OTHER: No other significant findings. IMPRESSION: NO SIGNIFICANT FINDING ON NON-CONTRASTED CHEST CT. TECHNICAL DOCUMENTATION: JOB ID: [id number] Quality ID # [id number]: Final reports with documentation of one or more dose reduction techniques (e.g., Au tomated exposure control, adjustment of the mA and/or kV according to patient size, use of iterative reconstruction technique) 2010 [employer]- All Rights Reserved Reading location - IP/workstation name: [email or web address]
[2019-09-08 17:35] LABS: CREATINE KINASE MB 2.43 ng/mL (<4.55); TROPONIN I 0.024 ng/mL
[2019-09-08 18:30] LABS: APPEARANCE,URINE CLEAR; BILIRUBIN,URINE NEGATIVE (NEGATIVE); COLOR,URINE YELLOW; GLUCOSE, URINE NEGATIVE (NEGATIVE); KETONES,URINE NEGATIVE (NEGATIVE); LEUKOCYTE ESTERASE,URINE NEGATIVE (NEGATIVE); NITRITE,URINE NEGATIVE (NEGATIVE); PROTEIN,URINE 30 mg/dL (NEGATIVE); URINE SPECIFIC GRAVITY 1.009; UROBILINOGEN,URINE NEGATIVE mg/dL (<2.0)
[2019-09-08 20:36] VITALS: BP 140/72
== END 2019-09-08 20:46 | disposition home or self-care (01) ==
LOC: ER 15:55
DX: I13.0 Hypertensive heart and chronic kidney disease with heart failure and stage 1 through stage 4 chronic kidney disease, or unspecified chronic kidney disease (principal); N18.4 Chronic kidney disease, stage 4 (severe); I50.9 Heart failure, unspecified; I25.10 Atherosclerotic heart disease of native coronary artery without angina pectoris; J44.9 Chronic obstructive pulmonary disease, unspecified; I48.91 Unspecified atrial fibrillation; Z95.0 Presence of cardiac pacemaker; Z87.891 Personal history of nicotine dependence; Z91.013 Allergy to seafood; Z88.1 Allergy status to other antibiotic agents; Z79.899 Other long term (current) drug therapy
CPT/HCPCS: 36415; 71045; 71250; 80053; 81001; 82550; 82553; 83880; 84484; 85025; 99285

== ENCOUNTER → 2019-12-15 | Outpatient (CLI) | payer OTHER ==
[2019-12-15 17:51] LABS: ABSOLUTE EOSINOPHILS # (AUTO) 0.1 10^3/uL (0.0-0.6); ABSOLUTE LYMPHOCYTES (AUTO) 2.1 10^3/uL (0.5-4.7); ABSOLUTE MONOCYTES (AUTO) 0.8 10^3/uL (0.1-1.4); BASOPHILS % (AUTO) 0.6 % (0-2); EOSINOPHILS % (AUTO) 1.8 % (0-6); HEMATOCRIT 42.7 % (37.9-51.0); HEMOGLOBIN 14.5 g/dL (13.5-17.0); MEAN CORPUSCULAR HEMOGLOBIN 32.9 pg (27.0-33.4); MEAN CORPUSCULAR HGB CONC 33.9 g/dL (32.0-36.0); MEAN CORPUSCULAR VOLUME 97 fl (80-97); MONOCYTES % (AUTO) 10.3 % (3-13); PLATELET COUNT 158 10^3/uL (150-450); RED CELL DISTRIBUTION WIDTH 14.7 % (11.5-14.0); SEGMENTED NEUTROPHILS % (AUTO) 61.3 % (42-78); TOTAL CELLS COUNTED % (AUTO) 100 %; WHITE BLOOD COUNT 8.2 10^3/uL (4.0-10.5)
[2019-12-15 17:59] LABS: APPEARANCE,URINE CLEAR; BILIRUBIN,URINE NEGATIVE (NEGATIVE); COLOR,URINE YELLOW; GLUCOSE, URINE NEGATIVE (NEGATIVE); KETONES,URINE NEGATIVE (NEGATIVE); LEUKOCYTE ESTERASE,URINE NEGATIVE (NEGATIVE); NITRITE,URINE NEGATIVE (NEGATIVE); PROTEIN,URINE NEGATIVE (NEGATIVE); URINE SPECIFIC GRAVITY 1.006; UROBILINOGEN,URINE NEGATIVE mg/dL (<2.0)
[2019-12-15 18:15] LABS: ANION GAP 12 (5-19); BLOOD UREA NITROGEN 50 mg/dL (7-20); CALCIUM 9.7 mg/dL (8.4-10.2); CARBON DIOXIDE 32 mmol/L (22-30); CHLORIDE 97 mmol/L (98-107); GLUCOSE 102 mg/dL (75-110); PHOSPHORUS 4.2 mg/dL (2.5-4.5); POTASSIUM 4.7 mmol/L (3.6-5.0)
[2019-12-15 18:19] LABS: UR PRO/CREAT RATIO RESULT 0.3 mg/mg (0.0-0.2); URINE CREATININE 60.3 mg/dL (22-328); URINE PROTEIN 18.3 mg/dL (<12)
== END ==
LOC: OD 16:59
PROVIDERS: ATTEND Internal Medicine Nephrology
DX: I13.0 Hypertensive heart and chronic kidney disease with heart failure and stage 1 through stage 4 chronic kidney disease, or unspecified chronic kidney disease (principal); I50.9 Heart failure, unspecified; N18.4 Chronic kidney disease, stage 4 (severe); N25.0 Renal osteodystrophy; E66.9 Obesity, unspecified
CPT/HCPCS: 36415; 80048; 81001; 82570; 83970; 84100; 84156; 84550; 85025